=== PATIENT | female | born 1940 | race Caucasian/White ===

== ENCOUNTER 2016-10-08 18:29 | Inpatient (IN) | payer MEDICARE, BC ==
[2016-10-08] MEDS ORDERED: NITROGLYCERIN SL TABS 0.4 MG TAB SUBLINGUAL STA (18:54)
[2016-10-08] MEDS ORDERED: NITROGLYCERIN OINT 1 INCH/GM PACKET TOPICAL STA (18:54)
[2016-10-08] MEDS ORDERED: ASPIRIN 81 MG CHEW PO STA (18:54)
--- NOTE | 2016-10-08 19:07 | ED ---
General Adult HPI - General Chief complaint: Chest Pain Stated complaint: chest pain Time Seen by Provider: 10/08/16 18:35 Source: patient, RN notes reviewed Mode of arrival: wheelchair Limitations: no limitations - History of Present Illness Initial comments: This is a 76-year-old female presents emergency Department complaining of chest pain intermittently over the last couple of weeks. Patient states it radiates to her back and up into her neck. She also states she short of breath and occasional sweating. Patient denies any nausea or vomiting. Patient states these episodes last between 5 and 10 minutes is a significant pain such that she feels like she has to grab her chest. Patient denies any fever chills or cough. Patient denies any palpitations. Patient denies any headache patient denies numbness weakness. Patient patient states and some of these episodes occur she becomes lightheaded and thinks she might pass out but has yet to pass out at this time. Patient denies any injury or trauma. Patient currently has no chest pain. - Related Data Home Medications Medication Instructions Recorded Confirmed Amantadine HCl [Symmetrel] 100 mg PO DAILY 10/21/14 02/23/15 Aspirin 81 mg PO DAILY 10/21/14 02/23/15 Carbidopa-Levodopa 25-100 mg 1 each PO QID 10/21/14 02/23/15 [Sinemet 25-100 mg] Icy Hot Cream 1 applic TOPICAL DAILY PRN 10/21/14 02/23/15 Losartan [Cozaar] 50 mg PO BID 10/21/14 02/23/15 Metoprolol Succinate [Toprol XL] 25 mg PO HS 10/21/14 02/23/15 Nitroglycerin Sl Tabs [Nitrostat] 0.4 mg PO Q5M PRN 10/21/14 02/23/15 Theratears 1 - 2 drop BOTH EYES DAILY PRN 10/21/14 02/23/15 clonazePAM [KlonoPIN] 1 mg PO TID 10/21/14 02/23/15 Previous Rx's Medication Instructions Recorded HYDROcodone/APAP 5-325MG [[place] 5] 1 each PO Q6HR PRN #30 tab 02/23/15 Allergies Allergy/AdvReac Type Severity Reaction Status Date / Time acetaminophen Allergy Unknown Verified 10/08/16 18:31 adhesive Allergy Unknown Verified 10/08/16 18:31 clarithromycin [From Biaxin] Allergy Unknown Verified 10/08/16 18:31 codeine Allergy Unknown Verified 10/08/16 18:31 kiwi Allergy Unknown Verified 10/08/16 18:31 latex Allergy Unknown Verified 10/08/16 18:31 levofloxacin [From Levaquin] Allergy Rash/Hives Verified 10/08/16 18:31 morphine Allergy Unknown Verified 10/08/16 18:31 nifedipine [From Procardia] Allergy Unknown Verified 10/08/16 18:31 Review of Systems ROS Statement: Those systems with pertinent positive or pertinent negative responses have been documented in the HPI. ROS Other: All systems not noted in ROS Statement are negative. Past Medical History Past Medical History: Coronary Artery Disease (CAD), Hypertension Additional Past Medical History / Comment(s): parkinsons neuropathy chronic back and neck pain History of Any Multi-Drug Resistant Organisms: None Reported Past Surgical History: Section, Cholecystectomy, Hysterectomy, Orthopedic Surgery Past Anesthesia/Blood Transfusion Reactions: No Reported Reaction Past Psychological History: No Psychological Hx Reported Smoking Status: Former smoker Past Alcohol Use History: None Reported Past Drug Use History: None Reported - Past Family History Father Family Medical History: Cancer General Exam - General Exam Comments Initial Comments: GENERAL: Patient is well-developed and well-nourished. Patient is nontoxic and well- hydrated and is in mild distress. ENT: Neck is soft and supple. No significant lymphadenopathy is noted. Oropharynx is clear. Moist mucous membranes. Neck has full range of motion without eliciting any pain. EYES: The sclera were anicteric and conjunctiva were pink and moist. Extraocular movements were intact and pupils were equal round and reactive to light. Eyelids were unremarkable. PULMONARY: Unlabored respirations. Good breath sounds bilaterally. No audible rales rhonchi or wheezing was noted. CARDIOVASCULAR: There is a regular rate and rhythm without any murmurs gallops or rubs. ABDOMEN: Soft and nontender with normal bowel sounds. No palpable organomegaly was noted. There is no palpable pulsatile mass. SKIN: Skin is clear with no lesions or rashes and otherwise unremarkable. NEUROLOGIC: Patient is alert and oriented x3. Cranial nerves II through XII are grossly intact. Motor and sensory are also intact. Normal speech, volume and content. Symmetrical smile. MUSCULOSKELETAL: Normal extremities with adequate strength and full range of motion. No lower extremity swelling or edema. No calf tenderness. LYMPHATICS: No significant lymphadenopathy is noted PSYCHIATRIC: Normal psychiatric evaluation. Normal interpersonal interactions appears functionally intact in deals appropriately with others. No signs of depression. Limitations: no limitations Course Vital Signs 10/08/16 10/08/16 10/08/16 18:31 18:52 19:19 Temperature 98.0 F Pulse Rate 76 78 Respiratory 18 20 Rate Blood Pressure 216/88 214/79 196/81 O2 Sat by Pulse 98 100 Oximetry Medical Decision Making - Medical Decision Making EKG shows normal sinus rhythm at 72 bpm IL interval 156 QRS is 84 QT interval 392 QTC is 429. Patient's EKG shows no ST segment elevation or depression or T- wave abdomen is noted to. Patient started to have some more chest pain while she was in the emergency department I repeated EKG at that time. It did show some inferior lateral ST segment depression at this time which was certainly concerning. However the troponin was negative and since her chest pain resolved I put the patient on heparin and admitted the patient. I spoke with Dr. Pugh I admitted the patient to consult cardiology and I gave the patient Nitropaste on the floor as well as aspirin daily. Patient's chest x-ray was normal as well - Lab Data Result diagrams: 10/08/16 19:14 10/08/16 19:14 Lab Results 10/08/16 10/08/16 10/08/16 Range/Units 19:14 19:14 19:14 WBC 5.9 (3.8-10.6) k/uL RBC 4.17 (3.80-5.40) m/uL Hgb 11.8 (11.4-16.0) gm/dL Hct 36.3 (34.0-46.0) % MCV 87.0 (80.0-100.0) fL MCH 28.3 (25.0-35.0) pg MCHC 32.5 (31.0-37.0) g/dL RDW 13.4 (11.5-15.5) % Plt Count 235 (150-450) k/uL Neutrophils % 46 % Lymphocytes % 40 % Monocytes % 7 % Eosinophils % 5 % Basophils % 1 % Neutrophils # 2.7 (1.3-7.7) k/uL Lymphocytes # 2.3 (1.0-4.8) k/uL Monocytes # 0.4 (0-1.0) k/uL Eosinophils # 0.3 (0-0.7) k/uL Basophils # 0.0 (0-0.2) k/uL PT (9.0-12.0) sec INR (<1.1) APTT (22.0-30.0) sec Sodium 142 (137-145) mmol/L Potassium 4.2 (3.5-5.1) mmol/L Chloride 103 (98-107) mmol/L Carbon Dioxide 28 (22-30) mmol/L Anion Gap 11 mmol/L BUN 38 H (7-17) mg/dL Creatinine 0.82 (0.52-1.04) mg/dL Est GFR (MDRD) Af Amer >60 (>60 ml/min/1.73 sqM) Est GFR (MDRD) Non-Af >60 (>60 ml/min/1.73 sqM) Glucose 104 H (74-99) mg/dL Calcium 9.5 (8.4-10.2) mg/dL Magnesium 2.1 (1.6-2.3) mg/dL Total Bilirubin 0.6 (0.2-1.3) mg/dL AST 20 (14-36) U/L ALT 18 (9-52) U/L Alkaline Phosphatase 73 (38-126) U/L Total Creatine Kinase 35 (30-135) U/L CK-MB (CK-2) 0.5 (0.0-2.4) ng/mL CK-MB (CK-2) Rel Index 1.4 Troponin I <0.012 (0.000-0.034) ng/mL Total Protein 7.5 (6.3-8.2) g/dL Albumin 4.0 (3.5-5.0) g/dL 10/08/16 Range/Units 19:14 WBC (3.8-10.6) k/uL RBC (3.80-5.40) m/uL Hgb (11.4-16.0) gm/dL Hct (34.0-46.0) % MCV (80.0-100.0) fL MCH (25.0-35.0) pg MCHC (31.0-37.0) g/dL RDW (11.5-15.5) % Plt Count (150-450) k/uL Neutrophils % % Lymphocytes % % Monocytes % % Eosinophils % % Basophils % % Neutrophils # (1.3-7.7) k/uL Lymphocytes # (1.0-4.8) k/uL Monocytes # (0-1.0) k/uL Eosinophils # (0-0.7) k/uL Basophils # (0-0.2) k/uL PT 10.4 (9.0-12.0) sec INR 1.0 (<1.1) APTT 24.5 (22.0-30.0) sec Sodium (137-145) mmol/L Potassium (3.5-5.1) mmol/L Chloride (98-107) mmol/L Carbon Dioxide (22-30) mmol/L Anion Gap mmol/L BUN (7-17) mg/dL Creatinine (0.52-1.04) mg/dL Est GFR (MDRD) Af Amer (>60 ml/min/1.73 sqM) Est GFR (MDRD) Non-Af (>60 ml/min/1.73 sqM) Glucose (74-99) mg/dL Calcium (8.4-10.2) mg/dL Magnesium (1.6-2.3) mg/dL Total Bilirubin (0.2-1.3) mg/dL AST (14-36) U/L ALT (9-52) U/L Alkaline Phosphatase (38-126) U/L Total Creatine Kinase (30-135) U/L CK-MB (CK-2) (0.0-2.4) ng/mL CK-MB (CK-2) Rel Index Troponin I (0.000-0.034) ng/mL Total Protein (6.3-8.2) g/dL Albumin (3.5-5.0) g/dL Critical Care Time Critical Care Time: Yes Total Critical Care Time: 35 Disposition Clinical Impression: Unstable angina pectoris Disposition: ADMITTED IP TO THIS [facility] Time of Disposition: 20:20
[2016-10-08 19:22] LABS: Basophils % (A) 1 %; CH 28.5; CHCM 32.9; Eosinophils # (A) 0.3 k/uL (0-0.7); Eosinophils % (A) 5 %; HCT 36.3 % (34.0-46.0); HDW 2.64; HGB 11.8 gm/dL (11.4-16.0); Luc # (Auto) 0.13; Luc % (Auto) 2; Lymphocytes # (A) 2.3 k/uL (1.0-4.8); Lymphocytes % (A) 40 %; MCH 28.3 pg (25.0-35.0); MCHC 32.5 g/dL (31.0-37.0); Mean Platelet Volume 6.4; Monocytes # (A) 0.4 k/uL (0-1.0); Monocytes % (A) 7 %; Neutrophils # (A) 2.7 k/uL (1.3-7.7); Neutrophils % (A) 46 %; RBC 4.17 m/uL (3.80-5.40); RDW 13.4 % (11.5-15.5); WBC 5.9 k/uL (3.8-10.6); WBC (Perox) 6.28
[2016-10-08] MEDS ORDERED: hydrALAZINE HCL 20 MG/ML 1 ML VIAL IVP STA (19:22)
[2016-10-08 19:34] LABS: ALT 18 U/L (9-52); AST 20 U/L (14-36); Alkaline Phosphatase 73 U/L (38-126); Anion Gap 11 mmol/L; Blood Urea Nitrogen 38 mg/dL (7-17); Calcium 9.5 mg/dL (8.4-10.2); Carbon Dioxide 28 mmol/L (22-30); Chloride 103 mmol/L (98-107); Glucose 104 mg/dL (74-99); Magnesium 2.1 mg/dL (1.6-2.3); Non-African American GFR(MDRD) >60 (>60 ml/min/1.73 sqM); Potassium 4.2 mmol/L (3.5-5.1); Sodium 142 mmol/L (137-145); Total Bilirubin 0.6 mg/dL (0.2-1.3); Total Protein 7.5 g/dL (6.3-8.2)
[2016-10-08 19:44] LABS: Creatine Kinase 35 U/L (30-135); Partial Thromboplastin Time 24.5 sec (22.0-30.0); Prothrombin Time 10.4 sec (9.0-12.0)
[2016-10-08 19:56] LABS: Creatine Kinase MB 0.5 ng/mL (0.0-2.4); Troponin I <0.012 ng/mL (0.000-0.034)
--- NOTE | 2016-10-08 20:04 | XR ---
EXAMINATION TYPE: XR chest 2V DATE OF EXAM: 10/08/2016 7:57 PM COMPARISON: 02/23/15 HISTORY: Shortness of breath TECHNIQUE: Frontal and lateral views of the chest are obtained. FINDINGS: Scattered senescent parenchymal changes noted. Hyperinflation compatible with COPD. No evidence for infiltrate. No evidence for atelectasis. Heart size is stable. Mediastinal structures are stable and grossly unremarkable. No evidence for hilar prominence. Degenerative changes dorsal spine. IMPRESSION: 1. No evidence for acute pulmonary disease.
[2016-10-08] MEDS ORDERED: NITROGLYCERIN SL TABS 0.4 MG TAB SUBLINGUAL PRN (20:20)
[2016-10-08] MEDS ORDERED: HEPARIN SODIUM,PORCINE 5,000 UNIT/ML 1 ML VIAL IV ONE ×2 (20:20→21:45)
[2016-10-08] MEDS ORDERED: RX INFO: IV CONTRAST WAS GIVEN 1 EACH MISC MISCELLANE PRN (20:24)
[2016-10-08] MEDS ORDERED: LABETALOL SYRINGE 5 MG/ML IVP STA (20:26)
[2016-10-08] MEDS ORDERED: METOPROLOL TARTRATE 5 MG/5 ML VIAL IVP SCH (20:30)
[2016-10-08] MEDS ORDERED: HEPARIN SODIUM,PORCINE/D5W PMX 25,000 UNIT in DEXTROSE/WATER 1 500ML.BAG IV SCH (20:30)
[2016-10-08] MEDS ORDERED: diphenhydrAMINE 50 MG/ML 1 ML VIAL IVP STA (20:42)
[2016-10-08] MEDS ORDERED: FAMOTIDINE 20 MG/2 ML VIAL IV STA (20:42)
[2016-10-08] MEDS ORDERED: methylPREDNISolone SOD SUCCI 125 MG/2 ML VIAL IV STA (20:42)
--- NOTE | 2016-10-08 21:33 | CT ---
EXAMINATION TYPE: CT angio thoracic/abd aorta DATE OF EXAM: 10/08/2016 9:19 PM COMPARISON: NONE HISTORY: Chest and neck pain and tightness. CT DLP: 1060.00 mGycm CONTRAST: CTA thoracic and abdominal aorta with 3-D reconstruction is performed and with IV Contrast, patient i njected with 100 mL of Omnipaque 350. Contrast CTA of the thoracic and abdominal aorta was performed from the lung apex through the base of the pelvis. 3-D reconstruction imaging obtained at a separate workstation. CT Chest: THORACIC AORTA: There is no evidence for aneurysm. No dissection or mediastinal hematoma. Mild ath eromatous changes are seen. LUNGS: The lungs are clear and free of infiltrate or atelectasis. No pulmonary nodule or mass is det ected. No pleural effusion or CT evidence of interstitial lung disease. MEDIASTINUM: The heart is not enlarged. No evidence for mediastinal mass or adenopathy. HILAR STRUCTURES: No evidence for mass. No hilar adenopathy is appreciated. OTHER: No significant abnormality. CONTRAST CT ABDOMEN AND PELVIS ABDOMENAL AORTA: No evidence for abdominal aortic aneurysm. No dissection. Iliac vessels are symmet damian and patent. Atheromatous changes are seen of the abdominal aorta and iliac vessels. LIVER/GB- No significant abnormality is seen. The gallbladder is surgically absent. PANCREAS- No significant abnormality is seen. SPLEEN- No significant abnormality is seen. ADRENALS- No significant abnormality is seen. KIDNEYS/BLADDER-renal cystic changes are seen. BOWEL- No Significant abnormality GENITAL ORGANS: No gross abnormality seen. LYMPH NODES- No greater than 1cm abdominal or pelvic lymph nodes areappreciated. OSSEOUS STRUCTURES- No significant abnormality is seen. OTHER- No significant abnormality is seen. IMPRESSION- 1. No evidence for thoracic or abdominal aortic aneurysm or dissection.
[2016-10-08] MEDS ORDERED: HYDROmorphone 1 MG/ML 1 ML SYRINGE IVP STA (21:45)
[2016-10-08] MEDS: HEPARIN SODIUM,PORCINE/D5W PMX 25,000 UNIT in DEXTROSE/WATER 1 500ML.BAG IV SCH (22:34)
[2016-10-09 00:07] VITALS: BMI 26.2
[2016-10-09 01:10] LABS: Creatine Kinase MB 1.3 ng/mL (0.0-2.4)
[2016-10-09 01:14] LABS: Troponin I 0.083 ng/mL (0.000-0.034)
[2016-10-09 04:55] LABS: Cholesterol 229 mg/dL (<200); HDL Cholesterol 55 mg/dL (40-60); Triglycerides 41 mg/dL (<150)
[2016-10-09] MEDS: NITROGLYCERIN OINT 1 INCH/GM PACKET TOPICAL SCH ×3 (06:47→16:24)
[2016-10-09 08:32] LABS: Creatine Kinase MB 4.6 ng/mL (0.0-2.4); Troponin I 0.697 ng/mL (0.000-0.034)
--- NOTE | 2016-10-09 08:52 | P.CRDCN ---
History of Present Illness Consult date: 10/09/16 Chief complaint: Chest pain History of present illness: This is a pleasant 76-year-old female patient with a past medical history significant for hypertension and dyslipidemia presented to the emergency room complaining of chest discomfort. She has been experiencing intermittent episodes of chest discomfort over the last 2 weeks. She describes the discomfort as a pressure in the chest with radiation to the neck and the jaw. It was associated with shortness of breath and sweating. The patient was ruled in for acute coronary syndrome. The EKG showed changes in the inferolateral leads and the cardiac enzymes came in to be abnormal. I recommended proceeding with a heart catheterization to rule out any severe underlying CAD. Past Medical History Past Medical History: Coronary Artery Disease (CAD), CVA/TIA, Hypertension Additional Past Medical History / Comment(s): parkinsons neuropathy chronic back and neck pain History of Any Multi-Drug Resistant Organisms: None Reported Past Surgical History: Section, Cholecystectomy, Hysterectomy, Orthopedic Surgery Additional Past Surgical History / Comment(s): Lt knee and foot. Lt breast lumpectomy. Bilateral cataract removed. Past Anesthesia/Blood Transfusion Reactions: No Reported Reaction Past Psychological History: No Psychological Hx Reported Smoking Status: Former smoker Past Alcohol Use History: None Reported Past Drug Use History: None Reported - Past Family History Father Family Medical History: Cancer Medications and Allergies Home Medications Medication Instructions Recorded Confirmed Type Aspirin 81 mg PO DAILY 10/21/14 10/08/16 History Nitroglycerin Sl Tabs [Nitrostat] 0.4 mg SUBLINGUAL Q5M PRN 10/21/14 10/08/16 History clonazePAM [KlonoPIN] 1 mg PO TID 10/21/14 10/08/16 History ALPRAZolam [Xanax] 0.25 mg PO DAILY PRN 10/08/16 10/08/16 History Carbidopa/Levodopa [Rytary ER 1 cap PO QID 10/08/16 10/08/16 History 61.25 mg-245 mg Cap] Losartan [Cozaar] 25 mg PO BID 10/08/16 10/08/16 History Allergies Allergy/AdvReac Type Severity Reaction Status Date / Time acetaminophen Allergy Unknown Verified 10/08/16 20:49 adhesive Allergy Unknown Verified 10/08/16 20:49 clarithromycin [From Biaxin] Allergy Unknown Verified 10/08/16 20:49 codeine Allergy Unknown Verified 10/08/16 20:49 kiwi Allergy Unknown Verified 10/08/16 20:49 latex Allergy Unknown Verified 10/08/16 20:49 levofloxacin [From Levaquin] Allergy Rash/Hives Verified 10/08/16 20:49 morphine Allergy Unknown Verified 10/08/16 20:49 nifedipine [From Procardia] Allergy Unknown Verified 10/08/16 20:49 amantadine AdvReac SHAKINESS Verified 10/08/16 20:49 Physical Exam Vitals: Vital Signs Temp Pulse Pulse Resp BP BP Pulse Ox 10/09/16 08:00 97.5 F L 71 18 210/66 99 10/09/16 04:00 97.6 F 65 16 149/65 98 10/09/16 00:30 176/55 10/09/16 00:00 97.6 F 65 16 181/74 98 10/08/16 22:12 81 16 144/66 98 10/08/16 21:18 82 16 150/78 Intake and Output 10/08/16 10/09/16 10/09/16 22:59 06:59 14:59 Other: Voiding Method Bedside Commode # Voids 1 Weight 64.864 kg - Constitutional General appearance: no acute distress - Respiratory Respiratory: bilateral: CTA - Cardiovascular Rhythm: regular Heart sounds: normal: S1, S2 Abnormal Heart Sounds: systolic murmur Results 10/08/16 19:14 10/08/16 19:14 Cardiac Enzymes 10/09/16 10/09/16 Range/Units 00:23 07:17 CK-MB (CK-2) 1.3 4.6 H* (0.0-2.4) ng/mL Troponin I 0.083 H* 0.697 H* (0.000-0.034) ng/mL Coagulation 10/09/16 Range/Units 04:01 APTT 65.5 H (22.0-30.0) sec Lipids 10/09/16 Range/Units 04:01 Triglycerides 41 (<150) mg/dL Cholesterol 229 H (<200) mg/dL HDL Cholesterol 55 (40-60) mg/dL Current Medications Generic Name Dose Route Start Last Admin Trade Name Freq PRN Reason Stop Dose Admin Aspirin 325 mg 10/09/16 09:00 Aspirin PO DAILY SARAI Heparin Sodium/Dextrose 25,000 500 mls @ 15.56 mls/hr 10/08/16 21:45 22:34 unit/ IV Solution IV 11.94 units/kg/hr .Q24H SARAI 15.5 mls/hr Protocol Administration 12 UNITS/KG/HR Miscellaneous Information 1 each 10/08/16 20:24 10/08/16 21:13 Rx Info: Iv Contrast Was Given MISCELLANE 10/10/16 20:25 1 each DAILY PRN Administration Per Protocol Nitroglycerin 1 inch 10/09/16 00:00 10/09/16 06:47 Nitro-Bid Oint TOPICAL Not Given Q6HR [facility] Nitroglycerin 0.4 mg 10/08/16 20:20 Nitrostat SUBLINGUAL Q5M PRN Chest Pain Intake and Output 10/08/16 10/09/16 10/09/16 22:59 06:59 14:59 Other: Voiding Method Bedside Commode # Voids 1 Weight 64.864 kg Assessment and Plan Plan: Assessment #1 acute non-ST elevation myocardial infarction #2 systemic hypertension Plan #1 proceeding with heart catheterization #2 follow-up with the patient
[2016-10-09] MEDS ORDERED: ASPIRIN 325 MG TAB PO SCH (09:00)
[2016-10-09] MEDS ORDERED: ALPRAZolam 0.25 MG TAB PO PRN (09:26)
[2016-10-09] MEDS ORDERED: LEVODOPA PO SCH (09:30)
[2016-10-09] MEDS ORDERED: CARBIDOPA PO SCH (09:30)
[2016-10-09] MEDS ORDERED: ATORVASTATIN 80 MG TAB PO STA (09:39)
[2016-10-09] MEDS ORDERED: SODIUM CHLORIDE 0.9% 1,000 ML in EMPTY BAG 1 BAG IV ONE (09:39)
[2016-10-09] MEDS ORDERED: LIDOCAINE 2% INJ 20 MG/ML (20 ML MDV) ONE (10:42)
[2016-10-09] MEDS ORDERED: MIDAZOLAM 2 MG/2 ML VIAL ONE (10:45)
[2016-10-09] MEDS ORDERED: diphenhydrAMINE 50 MG/ML 1 ML VIAL ONE (10:45)
[2016-10-09] MEDS ORDERED: LIDOCAINE 2% INJ 20 MG/ML SQ ONE (10:58)
[2016-10-09] MEDS ORDERED: diphenhydrAMINE 50 MG/ML 1 ML VIAL IVP ONE (10:58)
[2016-10-09] MEDS: MIDAZOLAM 2 MG/2 ML VIAL IV ONE ×2 (10:58→11:33)
[2016-10-09] MEDS ORDERED: IV FLUID CONTINUATION 1,000 ML IV ONE (10:59)
[2016-10-09] MEDS ORDERED: hydrALAZINE HCL 20 MG/ML 1 ML VIAL ONE (11:02)
[2016-10-09] MEDS ORDERED: METOPROLOL TARTRATE 5 MG/5 ML VIAL IVP ONE ×2 (11:02→11:05)
[2016-10-09] MEDS: hydrALAZINE HCL 20 MG/ML 1 ML VIAL IV ONE ×2 (11:05→11:35)
[2016-10-09] MEDS: NITROGLYCERIN 1000MCG/10ML SYRINGE INTRACORON ONE ×3 (11:12→11:56)
[2016-10-09] MEDS ORDERED: HYDROmorphone 2 MG/ML 1 ML SYRINGE ONE (11:23)
[2016-10-09] MEDS ORDERED: BIVALIRUDIN 250 MG in SODIUM CHLORIDE 0.9% 50 ML IV ONE (11:25)
[2016-10-09] MEDS ORDERED: BIVALIRUDIN BOLUS 250 MG/50 ML IV ONE (11:25)
[2016-10-09] MEDS ORDERED: HYDROmorphone 2 MG/ML 1 ML SYRINGE IV ONE (11:25)
[2016-10-09] MEDS ORDERED: CLOPIDOGREL 75 MG TAB ONE (11:47)
[2016-10-09] MEDS ORDERED: CLOPIDOGREL 75 MG TAB PO ONE (11:54)
[2016-10-09] MEDS ORDERED: IOHEXOL 350 MG/ML 100 ML BOTTLE INTRATHECA ONE (11:58)
[2016-10-09] MEDS ORDERED: MAG HYDROX/AL HYDROX/SIMETH 30 ML CUP PO PRN (12:02)
[2016-10-09] MEDS ORDERED: RX INFO: IV CONTRAST WAS GIVEN 1 EACH MISC MISCELLANE PRN (12:02)
[2016-10-09] MEDS ORDERED: NITROGLYCERIN SL TABS 0.4 MG TAB SUBLINGUAL PRN (12:02)
[2016-10-09] MEDS ORDERED: SODIUM CHLORIDE 0.9% 1,000 ML IV SCH (12:15)
[2016-10-09] MEDS: clonazePAM 1 MG TAB PO SCH ×3 (16:22→21:10)
[2016-10-09] MEDS: LOSARTAN 25 MG TAB PO SCH ×2 (16:22→21:11)
[2016-10-09] MEDS: RYTARY ER PO SCH ×4 (16:23→21:11)
--- NOTE | 2016-10-09 17:27 | P.HPIM ---
History of Present Illness H&P Date: 10/09/16 Chief Complaint: Chest pain This is a 76-year-old female. Her primary care physician is Dr. Quinn. She has a past medical history for coronary artery disease, CVA, hypertension, Parkinson's, chronic back and neck pain with herniated disc in her neck, frozen left shoulder, recently diagnosed breast cancer in October 2015 status post left lung back to [place] with secondary resection. Her neurologist is Dr. Austin. She has appointment with Dr. jennings at the end of October regarding breast cancer. Patient gives history of having ongoing problems with neck pain with chest pain and shortness of breath that went into her neck and jaw. She states this started back in June and it would happen about 1 time per week. She thought it was her Parkinson's and she had gone to physical therapy for her neck for 3 treatments but it seemed to make it worse. Gradually the symptoms became more frequent and she has been in the process of changing [employer] plans so she did not want to go to Dr. Quinn until this was all resolved and she knew what her new co-pay would be. Had a severe spell yesterday with chest pain shortness of breath radiation into her neck and jaw with diaphoresis and her made her come into the hospital for evaluation. Patient presented to [facility] emergency center. Patient was ruled in for acute coronary syndrome and was seen by cardiology and taken for heart catheterization with 90% stenosis of the RCA status post PTCA and stent.. Troponin 0.012, 0.083 and 0.697. Triglycerides 41, cholesterol 229, LDL 166 HDL 55. Review of Systems All systems: negative Constitutional: Denies chills, Denies fever Eyes: denies blurred vision, denies pain Ears, nose, mouth and throat: Denies headache, Denies sore throat Cardiovascular: Reports chest pain, Reports decreased exercise tolerance, Reports dyspnea on exertion, Reports lightheadedness, Reports shortness of breath, Denies leg edema, Denies syncope Respiratory: Denies cough Gastrointestinal: Denies abdominal pain, Denies diarrhea, Denies nausea, Denies vomiting Genitourinary: Denies dysuria, Denies hematuria Musculoskeletal: Denies myalgias Integumentary: Denies pruritus, Denies rash Neurological: Denies numbness, Denies weakness Psychiatric: Denies anxiety, Denies depression Endocrine: Denies fatigue, Denies weight change Past Medical History Past Medical History: Coronary Artery Disease (CAD), CVA/TIA, Hypertension Additional Past Medical History / Comment(s): Parkinson's disease, 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 No radiation or chemotherapy at this point. History of Any Multi-Drug Resistant Organisms: None Reported Past Surgical History: Appendectomy, Section (3), Cholecystectomy, Hysterectomy, Orthopedic Surgery, Tonsillectomy Additional Past Surgical History / Comment(s): Lt knee arthroscopically, left foot neuroma removal, Lt breast lumpectomy. Bilateral cataract removed. Past Anesthesia/Blood Transfusion Reactions: No Reported Reaction Past Psychological History: No Psychological Hx Reported Smoking Status: Former smoker Past Alcohol Use History: None Reported Additional Past Alcohol Use History / Comment(s): Patient smoked only replete as a teenager. No medical marijuana, marijuana, street drug or alcohol use. She currently lives at home with her who is also disabled. Son drives them to doctor's appointments. She does have a wheelchair and hospital bed in her home. Her [id number] comes over daily and does housekeeping and shopping for them. Past Drug Use History: None Reported - Past Family History Father Family Medical History: Cancer Additional Family Medical History / Comment(s): Father at age 56 from kidney cancer. Mother Additional Family Medical History / Comment(s): Mother at age 85 with history of coronary artery disease status post CABG and hypertension. Brother(s) Additional Family Medical History / Comment(s): Patient has a brother who from prostate cancer. Sister(s) Additional Family Medical History / Comment(s): Patient has lost 2 sisters one to pancreatic cancer and one to lung cancer. Son(s) Additional Family Medical History / Comment(s): She has had one son from brain tumor. Medications and Allergies Home Medications Medication Instructions Recorded Confirmed Type Aspirin 81 mg PO DAILY 10/21/14 10/08/16 History Nitroglycerin Sl Tabs [Nitrostat] 0.4 mg SUBLINGUAL Q5M PRN 10/21/14 10/08/16 History clonazePAM [KlonoPIN] 1 mg PO TID 10/21/14 10/08/16 History ALPRAZolam [Xanax] 0.25 mg PO DAILY PRN 10/08/16 10/09/16 History Carbidopa/Levodopa [Rytary ER 1 cap PO QID 10/08/16 10/08/16 History 61.25 mg-245 mg Cap] Losartan [Cozaar] 25 mg PO BID 10/08/16 10/08/16 History Allergies Allergy/AdvReac Type Severity Reaction Status Date / Time acetaminophen Allergy Unknown Verified 10/08/16 20:49 adhesive Allergy Unknown Verified 10/08/16 20:49 clarithromycin [From Biaxin] Allergy Unknown Verified 10/08/16 20:49 codeine Allergy Unknown Verified 10/08/16 20:49 kiwi Allergy Unknown Verified 10/08/16 20:49 latex Allergy Unknown Verified 10/08/16 20:49 levofloxacin [From Levaquin] Allergy Rash/Hives Verified 10/08/16 20:49 morphine Allergy Unknown Verified 10/08/16 20:49 nifedipine [From Procardia] Allergy Unknown Verified 10/08/16 20:49 amantadine AdvReac SHAKINESS Verified 10/08/16 20:49 Physical Exam Vitals: Vital Signs Temp Pulse Pulse Resp BP BP Pulse Ox 10/09/16 12:50 98.0 F 94 18 148/63 99 10/09/16 12:35 88 18 142/65 99 10/09/16 12:20 97.8 F 82 18 152/67 99 10/09/16 08:00 97.5 F L 71 18 210/66 99 10/09/16 04:00 97.6 F 65 16 149/65 98 10/09/16 00:30 176/55 10/09/16 00:00 97.6 F 65 16 181/74 98 10/08/16 22:12 81 16 144/66 98 10/08/16 21:18 82 16 150/78 Intake and Output 10/08/16 10/09/16 10/09/16 22:59 06:59 14:59 Intake Total 100 Balance 100 Intake: IV 100 Sodium Chloride 0.9% 1, 100 000 ml @ 100 mls/hr IV . Q10H SARAI Rx#:[id number] Other: Voiding Method Bedside Commode Bedside Commode # Voids 1 Weight 64.864 kg Gen: This is a 76-year-old female. She is resting in bed and appears to be in no acute distress. Generalized tremor noted most pronounced in the head and neck area HEENT: Head is atraumatic, normocephalic. Pupils equal, round. Sclerae is anicteric. NECK: Supple. No JVD. No lymphadenopathy. No thyromegaly. LUNGS: Clear to auscultation. No wheezes or rhonchi. No intercostal retractions. HEART: Regular rate and rhythm. Systolic murmur. ABDOMEN: Soft. Bowel sounds are present. No masses. No tenderness. EXTREMITIES: No pedal edema. No calf tenderness. Dorsalis pedis +2 bilaterally. NEUROLOGICAL: Patient is awake, alert and oriented x3. Cranial nerves 2 through 12 are grossly intact. Results CBC & Chem 7: 10/08/16 19:14 10/08/16 19:14 Labs: Abnormal Lab Results - Last 24 Hours (Table) 10/09/16 10/09/16 10/09/16 Range/Units 00:23 04:01 04:01 APTT 65.5 H (22.0-30.0) sec CK-MB (CK-2) (0.0-2.4) ng/mL Troponin I 0.083 H* (0.000-0.034) ng/mL Cholesterol 229 H (<200) mg/dL LDL Cholesterol, Calc 166 H (0-99) mg/dL 10/09/16 Range/Units 07:17 APTT (22.0-30.0) sec CK-MB (CK-2) 4.6 H* (0.0-2.4) ng/mL Troponin I 0.697 H* (0.000-0.034) ng/mL Cholesterol (<200) mg/dL LDL Cholesterol, Calc (0-99) mg/dL Thrombosis Risk Factor Assmnt - DVT/VTE Prophylaxis DVT/VTE Prophylaxis: Pharmacologic Prophylaxis ordered - Choose All That Apply Each Risk Factor Represents 2 Points: Age 61-74 years Thrombosis Risk Factor Assessment Total Risk Factor Score: 2 Thrombosis Risk Factor Assessment Level: Low Risk Assessment and Plan Plan: 1. Non-ST elevated myocardial infarction status post heart catheterization, PTCA and stent of the RCA. Continue Plavix, aspirin, Cozaar. Cardiology consult appreciated. 2. Parkinson's disease. Continue Rytary 4 times daily. 3. Hypertension. Continue Cozaar. 4. Chronic neck and back pain, stable. 5. Breast cancer left side status post lumpectomy diagnosed in 2015. Patient has appointment to follow up with Dr. jennings at the end of October. 6. Generalized anxiety disorder continue Xanax as needed. 7. DVT prophylaxis. Patient has been on heparin drip. 8. Gastrointestinal prophylaxis. Patient will be admitted to the hospital for a minimum of 2 night stay. Discharge plan: Return home with homecare Impression and plan of care have been directed as dictated by the signing physician. Anitra Riggs nurse practitioner acting as scribe for signing physician. Time with Patient: Greater than 30
[2016-10-09 20:36] LABS: Glucose,Whole Blood 142 mg/dL (75-99)
[2016-10-09] MEDS ORDERED: ZOLPIDEM 5 MG TAB PO PRN (21:00)
[2016-10-09] MEDS: HEPARIN SODIUM,PORCINE/D5W PMX 25,000 UNIT in DEXTROSE/WATER 1 500ML.BAG IV SCH (21:00)
[2016-10-10] MEDS: NITROGLYCERIN OINT 1 INCH/GM PACKET TOPICAL SCH ×3 (00:11→08:39)
[2016-10-10 06:48] LABS: Non-African American GFR(MDRD) 54 (>60 ml/min/1.73 sqM)
[2016-10-10] MEDS: CLOPIDOGREL 75 MG TAB PO SCH (08:49)
[2016-10-10] MEDS: LOSARTAN 25 MG TAB PO SCH ×2 (08:50→22:03)
[2016-10-10] MEDS: RYTARY ER PO SCH ×4 (08:50→22:02)
[2016-10-10] MEDS: ASPIRIN 325 MG TAB PO SCH (08:50)
[2016-10-10] MEDS: FAMOTIDINE 20 MG TAB PO SCH (08:50)
[2016-10-10] MEDS: clonazePAM 1 MG TAB PO SCH ×3 (08:52→22:02)
[2016-10-10] MEDS: POLYETHYLENE GLYCOL 3350 17 GM POWD.PACK PO SCH (12:48)
--- NOTE | 2016-10-10 13:19 | CC ---
DATE OF SERVICE: 10/09/2016 PERFORMING PHYSICIAN: Manish Rascon MD, senior market intelligence consultant. PROCEDURE PERFORMED: 1. Selective right and left coronary angiogram. 2. Successful stenting of the mid right coronary artery using 2.25 x 28 mm Xience BHAVANI with a good angiographic results. 3. Successful stenting of the proximal right coronary artery using 2.5 x 18 mm Xience BHAVANI with a good angiographic results. INDICATION: This is a pleasant 76-year-old female patient with a known hypertension, and dyslipidemia, who was admitted to the hospital with chest discomfort and ruled in for acute non-ST elevation myocardial infarction. The cardiac enzymes came in to be abnormal. They are consistent with acute MRI. The EKG showed sinus rhythm with ST changes in the inferolateral leads. APPROACH: Right common femoral artery. COMPLICATIONS: None. LEVEL OF SEDATION: Moderate. PROCEDURE DESCRIPTION: After obtaining informed consent, the patient was brought to the cardiac collaborating supervising physician. The right common femoral artery was cannulated using micropuncture technique. The micropuncture wire passed easily, then I placed 6 [place]gu[place] sheath in the right common femoral artery. Subsequently, I did selective right and left coronary angiogram using JR 3.5 and JL 3.5 catheters. After that, I decided to intervene on the RCA. Please see separate paragraph for that. SELECTIVE CORONARY ANGIOGRAM: 1. The right coronary artery is a moderate to large-caliber vessel and it is a dominant vessel. The right coronary artery is subtotally occluded in the proximal to midportion and fills by collateral from the left coronary system. 2. The left main has mild disease in the ostium. It bifurcates into the left circumflex and left anterior descending artery. 3. The left circumflex is a large-caliber vessel and it is a nondominant vessel. The proximal left circumflex appeared to be angiographically normally. The mid left circumflex has mild disease only and gives rises into 2 obtuse marginal branches. The left circumflex continues after that as a small to medium caliber vessel in the AV groove. 4. Left anterior descending artery: The proximal left anterior descending artery appeared to have mild disease only. The mid LAD seems to have mild disease only as well and gives rises into a diagonal branch, which appeared to be angiographically normal. The distal LAD appeared to be very tortuous but angiographically normal. PCI OF THE RCA: Anticoagulation was initiated using Angiomax. Subsequently, I took JR4 guide and RCA was engaged. I was able to cross the subtotally occluded right coronary artery using 0.04 whisper wire with the back-up support of 20 x 2 mm balloon. I crossed the right coronary artery using a whisper wire and after that, I tried to advance a 2.0 mm balloon but the balloon would not cross. After that, I did advance 1.5 mm balloon and I did multiple balloon angioplasty of the lesion in the proximal and mid right coronary artery. Then I did advance a 20 mm balloon and again I did multiple balloon angioplasty of the lesion in the mid RCA and proximal RCA. Subsequently, I did deploy in the mid RCA 2.25 x 28 mm Xience BHAVANI, where the stent was positioned under fluoroscopy guidance and it was deployed under its nominal pressure. For the proximal RCA I did deploy 2.5 x 18 mm another Xience BHAVANI with about 1 mm overlap between the 2 stents. The second stent was deployed under its nominal pressure as well. After that, the area of overlap between the 2 stents was dilated using stent balloon. Final angiogram showed an excellent angiographic result. CONCLUSION: 1. Subtotally occluded right coronary artery fills by collaterals from the left coronary system. 2. Mild disease involving the left coronary system, which seems to be very tortuous. 3. Successful stenting of the proximal and mid right coronary artery using drug eluting stent with a good angiographic result and without complication. POSTPROCEDURE MANAGEMENT: 1. Dual antiplatelet therapy. 2. Risk factor modification. 3. Follow up with the patient.
--- NOTE | 2016-10-10 13:23 | ECHOF ---
Referral Reason:nonqmi MEASUREMENTS -------- HEIGHT: 157.5 cm WEIGHT: 68.5 kg BP: 142/64 RVIDd: 2.3 cm (< 3.3) IVSd: 1.4 cm (0.6 - 1.1) LVIDd: 3.5 cm (3.9 - 5.3) LVPWd: 1.2 cm (0.6 - 1.1) IVSs: 1.7 cm LVIDs: 2.2 cm LVPWs: 1.8 cm LA Diam: 2.4 cm (2.7 - 3.8) LAESV Index (A-L): 45.91 ml/m Ao Diam: 3.1 cm (2.0 - 3.7) AV Cusp: 1.1 cm (1.5 - 2.6) LA Diam: 4.2 cm (2.7 - 3.8) MV EXCURSION: 10.933 mm (> 18.000) MV EF SLOPE: 33 mm/s (70 - 150) EPSS: 0.2 cm MV E Royce: 1.57 m/s MV DecT: 263 ms MV A Royce: 1.59 m/s MV E/A Ratio: 0.98 AV maxP.95 mmHg AV meanP.33 mmHg AR PHT: 493 ms FINDINGS -------- Sinus rhythm. This was a technically good study. There is moderate concentric left ventricular hypertrophy. Overall left ventricular systolic function is normal with, an EF between 60 - 65 %. The right ventricle is normal in size. LA is severely dilated >40 ml/m2 The right atrial size is normal. Aortic valve is trileaflet and is moderately thickened. There is mild aortic regurgitation. There is mild aortic stenosis present. Peak/mean gradient across the Aortic Valve is 20.95mmHg / 12.33mmHg. The mitral valve leaflets are mildly thickened. Moderate mitral annular calcification present. There is trace mitral regurgitation. The peak and mean MV gradients are 10.78mmHg 4.94mmHg as measured by doppler. Trace tricuspid regurgitation present. Trace/mild (physiologic) pulmonic regurgitation. The aortic root size is normal. Normal inferior vena cava with normal inspiratory collapse consistent with estimated right atrial pressure of 5 mmHg. There is no pericardial effusion. CONCLUSIONS -------- 1. Sinus rhythm. 2. There is mild aortic stenosis present. 3. Peak/mean gradient across the Aortic Valve is 20.95mmHg / 12.33mmHg. 4. The mitral valve leaflets are mildly thickened. 5. Moderate mitral annular calcification present. 6. There is trace mitral regurgitation. 7. The peak and mean MV gradients are 10.78mmHg 4.94mmHg as measured by doppler. 8. Trace tricuspid regurgitation present. 9. Trace/mild (physiologic) pulmonic regurgitation. 10. The aortic root size is normal. 11. There is no pericardial effusion. 12. This was a technically good study. 13. There is moderate concentric left ventricular hypertrophy. 14. Overall left ventricular systolic function is normal with, an EF between 60 - 65 %. 15. The right ventricle is normal in size. 16. LA is severely dilated >40 ml/m2 17. The right atrial size is normal. 18. Aortic valve is trileaflet and is moderately thickened. 19. There is mild aortic regurgitation. MORNING NANNY: Angella Ventura RDCS
--- NOTE | 2016-10-10 14:51 | P.PN ---
Subjective This is a 76-year-old female. Her primary care physician is Dr. Quinn. She has a past medical history for coronary artery disease, CVA, hypertension, Parkinson's, chronic back and neck pain with herniated disc in her neck, frozen left shoulder, recently diagnosed breast cancer in October 2015 status post left lung back to me with secondary resection. Her neurologist is Dr. Austin. She has appointment with Dr. jennings at the end of October regarding breast cancer. Patient gives history of having ongoing problems with neck pain with chest pain and shortness of breath that went into her neck and jaw. She states this started back in June and it would happen about 1 time per week. She thought it was her Parkinson's and she had gone to physical therapy for her neck for 3 treatments but it seemed to make it worse. Gradually the symptoms became more frequent and she has been in the process of changing [employer] plans so she did not want to go to Dr. Quinn until this was all resolved and she knew what her new co-pay would be. Had a severe spell yesterday with chest pain shortness of breath radiation into her neck and jaw with diaphoresis and her made her come into the hospital for evaluation. Patient presented to [facility] emergency [facility]. Patient was ruled in for acute coronary syndrome and was seen by cardiology and taken for heart catheterization with 90% stenosis of the RCA status post PTCA and stent. Troponin 0.012, 0.083 and 0.697. Triglycerides 41, cholesterol 229, LDL 166 HDL 55. 10/10: Patient denies chest pain or shortness of breath. She does have chronic neck pain. Echocardiogram reveals mild aortic stenosis, trace mitral regurgitation, trace tricuspid regurgitation, EF 60-65% with moderate concentric left ventricular hypertrophy, LA severely dilated greater than 40, mild aortic regurgitation. Anticipate possible discharge tomorrow. Objective - Vital Signs Vital signs: Vital Signs Temp 98.1 F 10/10/16 04:00 Pulse 76 10/10/16 04:00 Resp 17 10/10/16 04:00 BP 110/53 10/10/16 04:00 Pulse Ox 94 L 10/10/16 04:00 Intake & Output 10/09/16 10/10/16 10/10/16 18:59 06:59 18:59 Intake Total 100 1000 180 Output Total 1200 Balance 100 -200 180 Weight 68.5 kg Intake: IV 100 1000 Sodium Chloride 0.9% 1, 100 1000 000 ml @ 100 mls/hr IV . Q10H [facility] Rx#:[id number] Oral 180 Output: Urine 1200 Other: Voiding Method Bedside Commode Bedside Commode # Voids 1 - Exam Gen: This is a 76-year-old female. She is resting in bed and appears to be in no acute distress. Generalized tremor noted most pronounced in the head and neck area HEENT: Head is atraumatic, normocephalic. Pupils equal, round. Sclerae is anicteric. NECK: Supple. No JVD. No lymphadenopathy. No thyromegaly. LUNGS: Clear to auscultation. No wheezes or rhonchi. No intercostal retractions. HEART: Regular rate and rhythm. Systolic murmur. ABDOMEN: Soft. Bowel sounds are present. No masses. No tenderness. EXTREMITIES: No pedal edema. No calf tenderness. Dorsalis pedis +2 bilaterally. NEUROLOGICAL: Patient is awake, alert and oriented x3. Cranial nerves 2 through 12 are grossly intact. - Labs CBC & Chem 7: 10/08/16 19:14 10/10/16 05:54 Labs: Abnormal Lab Results - Last 24 Hours (Table) 10/09/16 Range/Units 20:35 POC Glucose (mg/dL) 142 H (75-99) mg/dL Assessment and Plan Plan: 1. Non-ST elevated myocardial infarction status post heart catheterization, PTCA and stent of the RCA. Continue Plavix, aspirin, Cozaar, Lipitor. Cardiology consult appreciated. Echocardiogram as above. 2. Parkinson's disease. Continue Rytary 4 times daily. 3. Hypertension. Continue Cozaar. 4. Chronic neck and back pain, stable. 5. Breast cancer left side status post lumpectomy diagnosed in favor 2015. Patient has appointment to follow up with Dr. jennings at the end of October. 6. Generalized anxiety disorder continue Xanax as needed. 7. DVT prophylaxis. Patient has been on heparin drip. 8. Gastrointestinal prophylaxis. Discharge plan: Return home with homecare Impression and plan of care have been directed as dictated by the signing physician. Anitra Riggs nurse practitioner acting as scribe for signing physician. Time with Patient: Greater than 30
--- NOTE | 2016-10-10 14:51 | P.PN ---
Subjective Principal diagnosis: Non-STEMI This is a pleasant 76-year-old female who presented to the hospital with a non-ST elevation myocardial infarction. She has history of hypertension and hyperlipidemia. Patient was taken to the cardiac catheterization lab where she underwent angioplasty with stent placement of the right coronary artery. She was seen and examined this morning, denies any chest pain or difficulty in breathing. EKG shows normal sinus rhythm with no changes from post-PCI. Objective - Vital Signs Vital signs: Vital Signs Temp 97.1 F L 10/10/16 12:00 Pulse 74 10/10/16 12:00 Resp 18 10/10/16 12:00 BP 141/63 10/10/16 12:00 Pulse Ox 97 10/10/16 12:00 Intake & Output 10/09/16 10/10/16 10/10/16 18:59 06:59 18:59 Intake Total 240 Balance 240 Intake: Oral 240 Other: Voiding Method Bedside Commode - Exam PHYSICAL EXAMINATION: HEENT: Head is atraumatic, normocephalic. Pupils equal, round. Neck is supple. There is no elevated jugular venous pressure. HEART EXAMINATION: Heart S1 and S2 systolic murmur. CHEST EXAMINATION: Lungs are clear to auscultation and precussion. No chest wall tenderness is noted on palpation or with deep breathing. ABDOMEN: Soft, nontender. Bowel sounds are heard. No organomegaly noted. Right groin soft, no evidence of any hematoma. EXTREMITIES: 2+ peripheral pulses with no evidence of peripheral edema and no calf tenderness noted. NEUROLOGIC patient is awake, alert and oriented -3. . - Labs CBC & Chem 7: 10/08/16 19:14 10/10/16 05:54 Assessment and Plan Plan: Assessment and plan #1 non-Q-wave VA status post stent placement of the right coronary artery. #2 hypertension #3 hyperlipidemia Plan We will obtain an echocardiogram with Doppler study to assess patient's LV function. Continue current medications and plan for possible discharge home in the morning if stable. DNP note has been reviewed, I agree with a documented findings and plan of care. Patient was seen and examined.
[2016-10-10] MEDS: METOPROLOL TARTRATE 12.5 MG TAB PO SCH ×2 (16:44→22:03)
[2016-10-10] MEDS ORDERED: ATORVASTATIN 80 MG TAB PO SCH (21:00)
[2016-10-11 07:44] LABS: Anion Gap 5 mmol/L; Blood Urea Nitrogen 30 mg/dL (7-17); Calcium 8.8 mg/dL (8.4-10.2); Carbon Dioxide 31 mmol/L (22-30); Chloride 106 mmol/L (98-107); Glucose 86 mg/dL (74-99); Non-African American GFR(MDRD) 59 (>60 ml/min/1.73 sqM); Potassium 4.2 mmol/L (3.5-5.1); Sodium 142 mmol/L (137-145)
--- NOTE | 2016-10-11 09:43 | P.PN ---
Subjective Principal diagnosis: Non-STEMI This is a pleasant 76-year-old female who presented to the hospital with a non-ST elevation myocardial infarction. She has history of hypertension and hyperlipidemia. Patient was taken to the cardiac catheterization lab where she underwent angioplasty with stent placement of the right coronary artery. She was seen and examined this morning, denies any chest pain or difficulty in breathing. EKG shows normal sinus rhythm with no changes from post-PCI. Patient will be discharged home today to follow-up with Dr. Simons in the office in one week. Objective - Vital Signs Vital signs: Vital Signs Temp 98.1 F 10/11/16 04:00 Pulse 58 L 10/11/16 04:00 Resp 17 10/11/16 04:00 BP 147/69 10/11/16 04:00 Pulse Ox 96 10/11/16 04:00 Intake & Output 10/10/16 10/11/16 10/11/16 18:59 06:59 18:59 Intake Total 360 420 120 Output Total 950 Balance 360 -530 120 Weight 68.2 kg Intake: Intake, IV Titration 0 Amount Bivalirudin 250 mg In 0 Sodium Chloride 0.9% 50 ml As IV .STK-MED ONE Rx# :[id number] Heparin Sodium,Porcine/ 0 D5w Pmx 25,000 unit In Dextrose/Water 1 500ml. bag @ 12 UNITS/KG/HR 15. 56 mls/hr IV .Q24H [facility] Rx #:[id number] IV Fluid Continuation 1, 0 000 ml As IV .STK-MED ONE Rx#:[id number] Oral 360 420 120 Output: Urine 950 Other: Voiding Method Bedside Commode Toilet # Voids 1 - Exam PHYSICAL EXAMINATION: HEENT: Head is atraumatic, normocephalic. Pupils equal, round. Neck is supple. There is no elevated jugular venous pressure. HEART EXAMINATION: Heart S1 and S2 systolic murmur. CHEST EXAMINATION: Lungs are clear to auscultation and precussion. No chest wall tenderness is noted on palpation or with deep breathing. ABDOMEN: Soft, nontender. Bowel sounds are heard. No organomegaly noted. Right groin soft, no evidence of any hematoma. EXTREMITIES: 2+ peripheral pulses with no evidence of peripheral edema and no calf tenderness noted. NEUROLOGIC patient is awake, alert and oriented -3. . - Labs CBC & Chem 7: 10/08/16 19:14 10/11/16 06:47 Labs: Abnormal Lab Results - Last 24 Hours (Table) 10/11/16 Range/Units 06:47 Carbon Dioxide 31 H (22-30) mmol/L BUN 30 H (7-17) mg/dL Assessment and Plan Plan: Assessment and plan #1 non-Q-wave MS status post stent placement of the right coronary artery. #2 hypertension #3 hyperlipidemia Plan Echo cardiac gram with Doppler study was performed which revealed a normal left ventricular systolic function with a severely dilated left atrium. will be discharged home today to follow-up with Dr. Simons in the office in one week. She will be discharged home on aspirin 325 mg daily, Lipitor 80 mg daily, Plavix 75 mg daily, Pepcid 20 mg daily, losartan 25 mg one tablet by mouth twice a day, metoprolol tartrate 12-1/2 mg one tablet by mouth twice a day, and sublingual nitroglycerin as needed for chest pain. The patient has been educated regarding her medication as well as follow-up appointments. DNP note has been reviewed, I agree with a documented findings and plan of care. Patient was seen and examined.
[2016-10-11] MEDS: RYTARY ER PO SCH (10:00)
[2016-10-11] MEDS: POLYETHYLENE GLYCOL 3350 17 GM POWD.PACK PO SCH (10:00)
[2016-10-11] MEDS: LOSARTAN 25 MG TAB PO SCH (10:01)
[2016-10-11] MEDS: CLOPIDOGREL 75 MG TAB PO SCH (10:01)
[2016-10-11] MEDS: FAMOTIDINE 20 MG TAB PO SCH (10:01)
[2016-10-11] MEDS: METOPROLOL TARTRATE 12.5 MG TAB PO SCH (10:01)
[2016-10-11] MEDS: ASPIRIN 325 MG TAB PO SCH (10:01)
[2016-10-11] MEDS: clonazePAM 1 MG TAB PO SCH (10:04)
[2016-10-11 11:26] VITALS: TEMP 97.6
[2016-10-11 11:29] VITALS: BP 123/58; PULSE 55; RESP 18
--- NOTE | 2016-10-12 13:18 | DS ---
DATE OF ADMISSION: 10/10/2016 DATE OF DISCHARGE: 10/11/2016 ADMISSION DIAGNOSES: 1. Non-ST elevation myocardial infarction. 2. Parkinson disease. 3. Hypertension. 4. Chronic neck and back pain. 5. History of breast cancer, status post lumpectomy. 6. Generalized anxiety disorder. DISCHARGE DIAGNOSES: 1. Non-ST elevation myocardial infarction. 2. Parkinson disease. 3. Hypertension. 4. Chronic neck and back pain. 5. History of breast cancer, status post lumpectomy. 6. Generalized anxiety disorder. CONSULTATION: Cardiology Services. HOSPITAL COURSE: This is a 76-year-old female with multiple comorbidities who presented to the hospital with chest pain. Patient had [id number] evidence by elevated troponin, evaluated by Cardiology, who recommended emergent cardiac catheterization with stent placement to the RCA. Patient was started on appropriate cardioprotective medication including aspirin, Plavix, Cozaar and Lipitor, stabilized over the next 48 hours and felt to be stable for discharge. Patient counseled regarding medication adherence, close follow up with primary care physician, understands that she needs to take her Plavix on a daily basis and that it has to be very detailed with her medication. Patient advised to follow up with Dr. Quinn in her office after discharge and follow up with her scheduled appointment with Cardiology within 2 weeks from discharge. Educated about her current condition and when that she needs to come back to the hospital. Patient was discharged in stable condition. DISCHARGE PROCESS: 35 minutes.
== END 2016-10-11 12:54 | disposition home or self-care (01) | DRG 247 ==
LOC: EC 18:29 → 3OBS 20:20 → 6SEL 10-09 13:01 → OBSVTOIN 10-10 10:31
PROVIDERS: ADMIT Internal Medicine; ATTEND Internal Medicine
PROC: B2111ZZ Fluoroscopy of Multiple Coronary Arteries using Low Osmolar Contrast (ICD-10-PCS; 2016-10-09)
PROC: 027035Z Dilation of Coronary Artery, One Artery with Two Drug-eluting Intraluminal Devices, Percutaneous Approach (ICD-10-PCS; principal; 2016-10-09 10:35)
PROC: 4A023N7 Measurement of Cardiac Sampling and Pressure, Left Heart, Percutaneous Approach (ICD-10-PCS; 2016-10-09 10:35)
DX: I21.4 Non-ST elevation (NSTEMI) myocardial infarction (principal); G62.9 Polyneuropathy, unspecified; G20 Parkinson's disease; I10 Essential (primary) hypertension; I35.2 Nonrheumatic aortic (valve) stenosis with insufficiency; I25.10 Atherosclerotic heart disease of native coronary artery without angina pectoris; M50.20 Other cervical disc displacement, unspecified cervical region; M75.02 Adhesive capsulitis of left shoulder; M54.9 Dorsalgia, unspecified; E78.5 Hyperlipidemia, unspecified; F41.1 Generalized anxiety disorder; G89.29 Other chronic pain; Z85.3 Personal history of malignant neoplasm of breast; Z80.1 Family history of malignant neoplasm of trachea, bronchus and lung; Z82.49 Family history of ischemic heart disease and other diseases of the circulatory system; Z79.82 Long term (current) use of aspirin; Z80.0 Family history of malignant neoplasm of digestive organs; Z87.891 Personal history of nicotine dependence; Z86.73 Personal history of transient ischemic attack (TIA), and cerebral infarction without residual deficits; Z90.12 Acquired absence of left breast and nipple; Z90.49 Acquired absence of other specified parts of digestive tract; Z90.710 Acquired absence of both cervix and uterus; Z79.899 Other long term (current) drug therapy; Z88.1 Allergy status to other antibiotic agents; Z91.040 Latex allergy status; Z88.5 Allergy status to narcotic agent; Z91.018 Allergy to other foods; Z91.048 Other nonmedicinal substance allergy status; Z80.51 Family history of malignant neoplasm of kidney; Z80.42 Family history of malignant neoplasm of prostate; Z80.8 Family history of malignant neoplasm of other organs or systems; Z98.42 Cataract extraction status, left eye; Z98.41 Cataract extraction status, right eye
CPT/HCPCS: 36415; 71020; 71275; 75635; 80048; 80053; 80061; 82550; 82553; 82565; 83735; 84484; 85025; 85610; 85730; 93005; 93306; 93454; 96365; 96375; 96376; 99291

== ENCOUNTER → 2017-05-29 | Outpatient (CLI) | payer MEDICARE, BC ==
--- NOTE | 2017-05-29 16:16 | CT ---
EXAMINATION TYPE: CT abdomen pelvis wo con DATE OF EXAM: 05/29/2017 COMPARISON: October 08, 2016 HISTORY: Upper abdominal pain with nausea CT DLP: 519 mGycm Examination of the solid and hollow viscera is limited given the lack of contrast. FINDINGS: LUNG BASES: No evidence for nodule. No evidence for infiltrate. LIVER/GB: The gallbladder is surgically absent. No space-occupying hepatic lesion. PANCREAS: No pancreatic mass identified. No inflammatory process seen. SPLEEN: No evidence for splenomegaly. No intrasplenic lesions seen. ADRENALS: No adrenal nodules identified. No evidence for thickening. KIDNEYS: Hypoattenuating lesion upper pole right kidney is unchanged. Stable small partially calcifie d lesion lower pole left kidney measuring 8 mm and is nonspecific. No nephrolithiasis. No hydronephro sis. BOWEL: Appendix has a normal appearance. No evidence of bowel obstruction. No inflammatory process. M oderate fecal stasis is identified. Lymph nodes: No evidence for adenopathy greater than 1 cm. Abdominal aorta: Atheromatous changes seen. No evidence for aneurysm. Genital organs: No significant abnormality. Other: Stable fat-containing low anterior abdominal wall hernia. IMPRESSION: 1. NO ACUTE INTRA-ABDOMINAL PROCESS TO ACCOUNT FOR THE PATIENT'S SYMPTOMS. 2. ATHEROMATOUS CHANGES OF THE ABDOMINAL AORTA WITHOUT ANEURYSM. 3. NONSPECIFIC RENAL LESIONS.
== END | disposition home or self-care (01) ==
LOC: RADCTMAIN 14:43
PROVIDERS: ATTEND Family Medicine
DX: I71.4 Abdominal aortic aneurysm, without rupture (principal); N28.9 Disorder of kidney and ureter, unspecified
CPT/HCPCS: 74176

== ENCOUNTER 2017-06-27 11:30 | Emergency (ER) | payer MEDICARE, BC ==
[2017-06-27] MEDS ORDERED: SODIUM CHLORIDE 0.9% 1,000 ML IV STA ×2 (11:35→12:47)
--- NOTE | 2017-06-27 11:41 | ED ---
Abdominal Pain HPI - General Stated Complaint: Abd Pain/Nausea Time Seen by Provider: 06/27/17 11:30 Source: patient, EMS, RN notes reviewed Mode of arrival: EMS Limitations: no limitations - History of Present Illness Initial Comments: this is a 77-year-old female who is brought in by EMS [facility] with complaints of abdominal pain nausea vomiting. She had the onset around 8:30 this morning of nausea vomiting. She also has been having intermittent chest pains. She states she's had intermittent nausea ever since she had stents placed in September of this year and she was placed on Plavix and Lipitor. She also complains weight loss. He states the pain is more epigastric does radiate upwards. She has point also to the left side of her chest as where the pain was last several days. No nausea at this time no cough or phlegm production no fevers chills or sweats no constipation. She states she has been have some trouble urinating recently also.patient does have a history of a cholecystectomy also left breast cancer with lumpectomy. MD Complaint: abdominal pain, other - Related Data Home Medications Medication Instructions Recorded Confirmed Nitroglycerin Sl Tabs [Nitrostat] 0.4 mg SUBLINGUAL Q5M PRN 10/21/14 06/27/17 ALPRAZolam [Xanax] 0.25 mg PO Q12H PRN 10/08/16 06/27/17 Carbidopa/Levodopa [Rytary ER 1 cap PO QID 10/08/16 06/27/17 61.25 mg-245 mg Cap] Aspirin EC [Ecotrin Low Dose] 81 mg PO DAILY 06/27/17 06/27/17 Carbidopa-Levodopa 25-100 mg 1 tab PO DAILY 06/27/17 06/27/17 [Sinemet 25-100] Cyanocobalamin [Vitamin B-12 1,000 mcg SQ Q30D 06/27/17 06/27/17 Injection] Cyclobenzaprine [Flexeril] 2.5 mg PO TID 06/27/17 06/27/17 Ezetimibe [Zetia] 10 mg PO DAILY 06/27/17 06/27/17 Lubiprostone [Amitiza] 24 mcg PO DAILY 06/27/17 06/27/17 Metoprolol Tartrate [Lopressor] 12.5 mg PO BID 06/27/17 06/27/17 Mirtazapine [Remeron] 7.5 mg PO HS 06/27/17 06/27/17 Omeprazole 40 mg PO DAILY 06/27/17 06/27/17 Pravastatin Sodium [Pravachol] 80 mg PO DAILY 06/27/17 06/27/17 clonazePAM [KlonoPIN] 0.5 mg PO BID PRN 06/27/17 06/27/17 Previous Rx's Medication Instructions Recorded Clopidogrel [Plavix] 75 mg PO DAILY #30 tab 10/11/16 Allergies Allergy/AdvReac Type Severity Reaction Status Date / Time acetaminophen Allergy Unknown Verified 06/27/17 12:50 adhesive Allergy Unknown Verified 06/27/17 12:50 clarithromycin [From Biaxin] Allergy Unknown Verified 06/27/17 12:50 codeine Allergy Unknown Verified 06/27/17 12:50 kiwi Allergy Unknown Verified 06/27/17 12:50 latex Allergy Unknown Verified 06/27/17 12:50 levofloxacin [From Levaquin] Allergy Rash/Hives Verified 06/27/17 12:50 morphine Allergy Unknown Verified 06/27/17 12:50 nifedipine [From Procardia] Allergy Unknown Verified 06/27/17 12:50 amantadine AdvReac SHAKINESS Verified 06/27/17 12:50 Review of Systems ROS Statement: Those systems with pertinent positive or pertinent negative responses have been documented in the HPI. ROS Other: All systems not noted in ROS Statement are negative. 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 No radiation or chemotherapy at this point. History of Any Multi-Drug Resistant Organisms: None Reported Past Surgical History: Appendectomy, Section, Cholecystectomy, Hysterectomy, Orthopedic Surgery, Tonsillectomy Additional Past Surgical History / Comment(s): Lt knee arthroscopically, left foot neuroma removal, Lt breast lumpectomy. Bilateral cataract removed. Past Anesthesia/Blood Transfusion Reactions: No Reported Reaction Past Psychological History: No Psychological Hx Reported Smoking Status: Former smoker Past Alcohol Use History: None Reported Past Drug Use History: None Reported - Past Family History Mother Additional Family Medical History / Comment(s): Mother at age 85 with history of coronary artery disease status post CABG and hypertension. Brother(s) Additional Family Medical History / Comment(s): Patient has a brother who from prostate cancer. Sister(s) Additional Family Medical History / Comment(s): Patient has lost 2 sisters one to pancreatic cancer and one to lung cancer. Son(s) Additional Family Medical History / Comment(s): She has had one son from brain tumor. Father Family Medical History: Cancer Additional Family Medical History / Comment(s): Father at age 56 from kidney cancer. General Exam - General Exam Comments Initial Comments: this is a well-developed well-nourished awake alert oriented x 3 female Limitations: no limitations General appearance: alert, in no apparent distress Head exam: Present: atraumatic, normocephalic, normal inspection Eye exam: Present: normal appearance, PERRL, EOMI. Absent: scleral icterus, conjunctival injection, periorbital swelling ENT exam: Present: mucous membranes dry Neck exam: Present: normal inspection. Absent: tenderness, meningismus, lymphadenopathy Respiratory exam: Present: normal lung sounds bilaterally. Absent: respiratory distress, wheezes, rales, rhonchi, stridor Cardiovascular Exam: Present: regular rate, normal rhythm, normal heart sounds. Absent: systolic murmur, diastolic murmur, rubs, gallop, clicks GI/Abdominal exam: Present: soft, tenderness (mild epigastric tenderness palpation no guarding rebound masses or bruits), normal bowel sounds. Absent: distended, guarding, rebound, rigid Extremities exam: Present: normal inspection, full ROM, normal capillary refill. Absent: tenderness, pedal edema, joint swelling, calf tenderness Back exam: Present: normal inspection Neurological exam: Present: alert, oriented X3, CN II-XII intact Psychiatric exam: Present: normal affect, normal mood Skin exam: Present: warm, dry, intact, normal color. Absent: rash Course Vital Signs 06/27/17 06/27/17 06/27/17 11:32 13:04 14:03 Temperature 96.9 F L Pulse Rate 63 66 72 Respiratory 18 18 16 Rate Blood Pressure 184/91 198/78 196/81 O2 Sat by Pulse 98 98 96 Oximetry 06/27/17 15:20 Temperature 97.1 F L Pulse Rate 59 L Respiratory 16 Rate Blood Pressure 165/95 O2 Sat by Pulse 96 Oximetry Medical Decision Making - Medical Decision Making Patient was feeling improved after IV fluids. Her blood pressure was elevated she did not keep her blood pressure medications and she vomited them up this morning. She was given IV medication with Jacob improvement in her blood pressure she will be discharged - Lab Data Result diagrams: 06/27/17 11:52 06/27/17 11:52 Lab Results 06/27/17 06/27/17 06/27/17 Range/Units 11:52 11:52 11:52 WBC 6.1 (3.8-10.6) k/uL RBC 4.40 (3.80-5.40) m/uL Hgb 12.2 (11.4-16.0) gm/dL Hct 38.8 (34.0-46.0) % MCV 88.1 (80.0-100.0) fL MCH 27.8 (25.0-35.0) pg MCHC 31.5 (31.0-37.0) g/dL RDW 14.4 (11.5-15.5) % Plt Count 230 (150-450) k/uL Neutrophils % 74 % Lymphocytes % 19 % Monocytes % 4 % Eosinophils % 2 % Basophils % 0 % Neutrophils # 4.5 (1.3-7.7) k/uL Lymphocytes # 1.2 (1.0-4.8) k/uL Monocytes # 0.3 (0-1.0) k/uL Eosinophils # 0.1 (0-0.7) k/uL Basophils # 0.0 (0-0.2) k/uL Hypochromasia Slight PT (9.0-12.0) sec INR (<1.2) APTT (22.0-30.0) sec Sodium 143 (137-145) mmol/L Potassium 4.4 (3.5-5.1) mmol/L Chloride 105 (98-107) mmol/L Carbon Dioxide 28 (22-30) mmol/L Anion Gap 10 mmol/L BUN 28 H (7-17) mg/dL Creatinine 0.72 (0.52-1.04) mg/dL Est GFR (MDRD) Af Amer >60 (>60 ml/min/1.73 sqM) Est GFR (MDRD) Non-Af >60 (>60 ml/min/1.73 sqM) Glucose 106 H (74-99) mg/dL Plasma Lactic Acid Rudy (0.7-2.0) mmol/L Calcium 9.3 (8.4-10.2) mg/dL Total Bilirubin 0.8 (0.2-1.3) mg/dL AST 14 (14-36) U/L ALT 16 (9-52) U/L Alkaline Phosphatase 86 (38-126) U/L Total Creatine Kinase 37 (30-135) U/L CK-MB (CK-2) 0.5 (0.0-2.4) ng/mL CK-MB (CK-2) Rel Index 1.4 Troponin I <0.012 (0.000-0.034) ng/mL Total Protein 7.3 (6.3-8.2) g/dL Albumin 4.0 (3.5-5.0) g/dL Amylase 71 (30-110) U/L Lipase 87 (23-300) U/L Urine Color Urine Appearance (Clear) Urine pH (5.0-8.0) Ur Specific [place] (1.001-1.035) Urine Protein (Negative) Urine Glucose (UA) (Negative) Urine Ketones (Negative) Urine Blood (Negative) Urine Nitrite (Negative) Urine Bilirubin (Negative) Urine Urobilinogen (<2.0) mg/dL Ur Leukocyte Esterase (Negative) Urine RBC (0-5) /hpf Urine WBC (0-5) /hpf Ur Squamous Epith Cells (0-4) /hpf Hyaline Casts (0-2) /lpf Urine Mucus (None) /hpf 06/27/17 06/27/17 06/27/17 Range/Units 11:52 11:52 11:55 WBC (3.8-10.6) k/uL RBC (3.80-5.40) m/uL Hgb (11.4-16.0) gm/dL Hct (34.0-46.0) % MCV (80.0-100.0) fL MCH (25.0-35.0) pg MCHC (31.0-37.0) g/dL RDW (11.5-15.5) % Plt Count (150-450) k/uL Neutrophils % % Lymphocytes % % Monocytes % % Eosinophils % % Basophils % % Neutrophils # (1.3-7.7) k/uL Lymphocytes # (1.0-4.8) k/uL Monocytes # (0-1.0) k/uL Eosinophils # (0-0.7) k/uL Basophils # (0-0.2) k/uL Hypochromasia PT 10.7 (9.0-12.0) sec INR 1.1 (<1.2) APTT 21.7 L (22.0-30.0) sec Sodium (137-145) mmol/L Potassium (3.5-5.1) mmol/L Chloride (98-107) mmol/L Carbon Dioxide (22-30) mmol/L Anion Gap mmol/L BUN (7-17) mg/dL Creatinine (0.52-1.04) mg/dL Est GFR (MDRD) Af Amer (>60 ml/min/1.73 sqM) Est GFR (MDRD) Non-Af (>60 ml/min/1.73 sqM) Glucose (74-99) mg/dL Plasma Lactic Acid Rudy 1.3 (0.7-2.0) mmol/L Calcium (8.4-10.2) mg/dL Total Bilirubin (0.2-1.3) mg/dL AST (14-36) U/L ALT (9-52) U/L Alkaline Phosphatase (38-126) U/L Total Creatine Kinase (30-135) U/L CK-MB (CK-2) (0.0-2.4) ng/mL CK-MB (CK-2) Rel Index Troponin I (0.000-0.034) ng/mL Total Protein (6.3-8.2) g/dL Albumin (3.5-5.0) g/dL Amylase (30-110) U/L Lipase (23-300) U/L Urine Color Yellow Urine Appearance Clear (Clear) Urine pH 5.5 (5.0-8.0) Ur Specific [place] 1.020 (1.001-1.035) Urine Protein Trace H (Negative) Urine Glucose (UA) Negative (Negative) Urine Ketones 1+ H (Negative) Urine Blood Trace H (Negative) Urine Nitrite Negative (Negative) Urine Bilirubin Negative (Negative) Urine Urobilinogen 3.0 (<2.0) mg/dL Ur Leukocyte Esterase Large H (Negative) Urine RBC 2 (0-5) /hpf Urine WBC 10 H (0-5) /hpf Ur Squamous Epith Cells 1 (0-4) /hpf Hyaline Casts 15 H (0-2) /lpf Urine Mucus Few H (None) /hpf - Radiology Data Radiology results: report reviewed (I did review the imaging and reports no acute findings.), image reviewed Disposition Clinical Impression: Dehydration, Gastritis, Hypertension Disposition: HOME SELF-CARE Condition: Good Instructions: Acute Nausea and Vomiting (ED), Dehydration (ED), Hypertension ( ED) Referrals: Traci Quinn MD [Primary Care Provider] - 1-2 days
[2017-06-27 12:15] LABS: ALT 16 U/L (9-52); AST 14 U/L (14-36); Alkaline Phosphatase 86 U/L (38-126); Amylase 71 U/L (30-110); Anion Gap 10 mmol/L; Blood Urea Nitrogen 28 mg/dL (7-17); Calcium 9.3 mg/dL (8.4-10.2); Carbon Dioxide 28 mmol/L (22-30); Chloride 105 mmol/L (98-107); Glucose 106 mg/dL (74-99); Non-African American GFR(MDRD) >60 (>60 ml/min/1.73 sqM); Potassium 4.4 mmol/L (3.5-5.1); Sodium 143 mmol/L (137-145); Total Bilirubin 0.8 mg/dL (0.2-1.3); Total Protein 7.3 g/dL (6.3-8.2)
--- NOTE | 2017-06-27 12:16 | XR ---
EXAMINATION TYPE: XR KUB , 2 VIEWS DATE OF EXAM ORDERED: 06/27/2017 HISTORY: abdominal pain. COMPARISON: Previous study dated 03/18/[address] scan of the abdomen and pelvis dated 05/29/2017. FINDINGS: The lung bases are clear. Within the abdomen, the abdominal gas pattern is within normal limits. There is no evidence of obstru ction or free air. No unusual calcifications are seen. IMPRESSION: NO ACUTE INTRA-ABDOMINAL ABNORMALITY.
[2017-06-27 12:23] LABS: INR 1.1 (<1.2); Prothrombin Time 10.7 sec (9.0-12.0)
[2017-06-27 12:25] LABS: Creatine Kinase 37 U/L (30-135)
[2017-06-27 12:28] LABS: Appearance,Urine Clear (Clear); Bilirubin,Urine Negative (Negative); Glucose,Urine (UA) Negative (Negative); Ketones,Urine 1+ (Negative); Leukocyte Esterase,Urine Large (Negative); Mucus,Urine Few /hpf; Nitrite,Urine Negative (Negative); PH, Urine 5.5 (5.0-8.0); Particle Count 7351; Protein,Urine Trace (Negative); RBC,Urine 2 /hpf (0-5); Squamous Epithelial Cell,Urine 1 /hpf (0-4); UA Billing (MACRO vs. MICRO) MICRO; WBC,Urine 10 /hpf (0-5)
[2017-06-27 12:29] LABS: Partial Thromboplastin Time 21.7 sec (22.0-30.0)
[2017-06-27 12:35] LABS: Basophils % (A) 0 %; CH 27.4; CHCM 31.3; Eosinophils # (A) 0.1 k/uL (0-0.7); Eosinophils % (A) 2 %; HCT 38.8 % (34.0-46.0); HDW 2.56; HGB 12.2 gm/dL (11.4-16.0); Hypochromasia Slight; Luc # (Auto) 0.06; Luc % (Auto) 1; Lymphocytes # (A) 1.2 k/uL (1.0-4.8); Lymphocytes % (A) 19 %; MCH 27.8 pg (25.0-35.0); MCHC 31.5 g/dL (31.0-37.0); MCV 88.1 fL (80.0-100.0); Mean Platelet Volume 7.1; Monocytes # (A) 0.3 k/uL (0-1.0); Monocytes % (A) 4 %; Neutrophils # (A) 4.5 k/uL (1.3-7.7); Neutrophils % (A) 74 %; RDW 14.4 % (11.5-15.5); WBC 6.1 k/uL (3.8-10.6); WBC (Perox) 6.06
[2017-06-27 12:38] LABS: Creatine Kinase MB 0.5 ng/mL (0.0-2.4); Troponin I <0.012 ng/mL (0.000-0.034)
[2017-06-27] MEDS ORDERED: METOPROLOL TARTRATE 5 MG/5 ML VIAL IVP STA ×2 (13:40→14:35)
[2017-06-27] MEDS ORDERED: SODIUM CHLORIDE 0.9% 500 ML IV STA (15:03)
[2017-06-27] MEDS ORDERED: hydrALAZINE HCL 20 MG/ML 1 ML VIAL IVP STA (15:04)
[2017-06-27 16:04] VITALS: BP 142/65; PULSE 75; RESP 15; TEMP 97.4
== END 2017-06-27 16:37 | disposition home or self-care (01) ==
LOC: EC 11:30
DX: E86.0 Dehydration (principal); K29.70 Gastritis, unspecified, without bleeding; I10 Essential (primary) hypertension; I25.10 Atherosclerotic heart disease of native coronary artery without angina pectoris; G20 Parkinson's disease; Z86.73 Personal history of transient ischemic attack (TIA), and cerebral infarction without residual deficits; Z85.3 Personal history of malignant neoplasm of breast; Z87.891 Personal history of nicotine dependence; Z79.82 Long term (current) use of aspirin; Z79.899 Other long term (current) drug therapy; Z88.5 Allergy status to narcotic agent; Z88.1 Allergy status to other antibiotic agents; Z91.018 Allergy to other foods; Z91.040 Latex allergy status; Z88.6 Allergy status to analgesic agent; Z88.8 Allergy status to other drugs, medicaments and biological substances; Z91.048 Other nonmedicinal substance allergy status; Z90.49 Acquired absence of other specified parts of digestive tract; Z98.890 Other specified postprocedural states
CPT/HCPCS: 99284 ×2; 96374 ×2; 96375 ×2; 96376 ×2; 96361 ×5; 36415; 80053; 82150; 82550; 82553; 83605; 83690; 84484; 85025; 85610; 85730; 81001; 74000; J0360

== ENCOUNTER 2018-02-22 07:24 | Observation (INO) | payer MEDICARE, BC ==
[2018-02-22] MEDS ORDERED: ASPIRIN 81 MG PO STA (07:46)
[2018-02-22] MEDS ORDERED: NITROGLYCERIN OINT 1 INCH/GM PACKET TOPICAL STA (07:46)
--- NOTE | 2018-02-22 07:54 | ED ---
General Adult HPI - General Chief complaint: Chest Pain Stated complaint: chest pain Time Seen by Provider: 02/22/18 07:25 Source: patient, EMS, RN notes reviewed Mode of arrival: EMS Limitations: no limitations - History of Present Illness Initial comments: This a 77-year-old female presents emergency Department complaining of chest pain. Patient states the pain comes and goes since she went to bed last night. Patient states the pain is sharp in nature but she says is consistent with the pain she had last time she needed a stent about a year ago. Patient denies any difficulty breathing but she states she felt a little lightheaded and she was nauseated when the pain was occurring. Patient denies any diaphoretic episodes. Patient denies any recent fever chills or cough. Patient denies any headache patient denies any numbness or weakness. Patient denies abdominal pain patient denies any vomiting diarrhea. Patient denies any recent injury. Patient denies reproducible pain with palpation. She states nothing she does seems to make the pain better or worse. Patient states currently she is having no pain. - Related Data Home Medications Medication Instructions Recorded Confirmed Aspirin EC [Ecotrin Low Dose] 81 mg PO DAILY 06/27/17 02/22/18 Metoprolol Tartrate [Lopressor] 12.5 mg PO BID 06/27/17 02/22/18 clonazePAM [KlonoPIN] 0.5 mg PO TID PRN 06/27/17 02/22/18 Carbidopa/Levodopa [Rytary ER 2 cap PO 5XD 02/22/18 02/22/18 48.75 mg-195 mg Cap] Ergocalciferol (Vitamin D2) 50,000 unit PO MO 02/22/18 02/22/18 [Vitamin D2] Polyethylene Glycol 3350 [Miralax] 17 gm PO DAILY PRN 02/22/18 02/22/18 Rivastigmine Tartrate [Exelon] 1.5 mg PO BID 02/22/18 02/22/18 Allergies Allergy/AdvReac Type Severity Reaction Status Date / Time acetaminophen Allergy Unknown Verified 02/22/18 07:55 adhesive Allergy Unknown Verified 02/22/18 07:55 clarithromycin [From Biaxin] Allergy Unknown Verified 02/22/18 07:55 codeine Allergy Unknown Verified 02/22/18 07:55 kiwi Allergy Unknown Verified 02/22/18 07:55 latex Allergy Unknown Verified 02/22/18 07:55 levofloxacin [From Levaquin] Allergy Rash/Hives Verified 02/22/18 07:55 morphine Allergy Unknown Verified 02/22/18 07:55 nifedipine [From Procardia] Allergy Unknown Verified 02/22/18 07:55 amantadine AdvReac SHAKINESS Verified 02/22/18 07:55 Review of Systems ROS Statement: Those systems with pertinent positive or pertinent negative responses have been documented in the HPI. ROS Other: All systems not noted in ROS Statement are negative. 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 No radiation or chemotherapy at this point. History of Any Multi-Drug Resistant Organisms: None Reported Past Surgical History: Appendectomy, Section, Cholecystectomy, Hysterectomy, Orthopedic Surgery, Tonsillectomy Additional Past Surgical History / Comment(s): Lt knee arthroscopically, left foot neuroma removal, Lt breast lumpectomy. Bilateral cataract removed. Past Anesthesia/Blood Transfusion Reactions: No Reported Reaction Past Psychological History: No Psychological Hx Reported Smoking Status: Former smoker Past Alcohol Use History: None Reported Past Drug Use History: None Reported - Past Family History Mother Additional Family Medical History / Comment(s): Mother at age 85 with history of coronary artery disease status post CABG and hypertension. Brother(s) Additional Family Medical History / Comment(s): Patient has a brother who from prostate cancer. Sister(s) Additional Family Medical History / Comment(s): Patient has lost 2 sisters one to pancreatic cancer and one to lung cancer. Son(s) Additional Family Medical History / Comment(s): She has had one son from brain tumor. Father Family Medical History: Cancer Additional Family Medical History / Comment(s): Father at age 56 from kidney cancer. General Exam - General Exam Comments Initial Comments: GENERAL: Patient is well-developed and well-nourished. Patient is nontoxic and well- hydrated and is in no acute distress. ENT: Neck is soft and supple. No significant lymphadenopathy is noted. Oropharynx is clear. Moist mucous membranes. Neck has full range of motion without eliciting any pain. EYES: The sclera were anicteric and conjunctiva were pink and moist. Extraocular movements were intact and pupils were equal round and reactive to light. Eyelids were unremarkable. PULMONARY: Unlabored respirations. Good breath sounds bilaterally. No audible rales rhonchi or wheezing was noted. CARDIOVASCULAR: There is a regular rate and rhythm without any murmurs gallops or rubs. ABDOMEN: Soft and nontender with normal bowel sounds. No palpable organomegaly was noted. There is no palpable pulsatile mass. SKIN: Skin is clear with no lesions or rashes and otherwise unremarkable. NEUROLOGIC: Patient is alert and oriented x3. Cranial nerves II through XII are grossly intact. Motor and sensory are also intact. Normal speech, volume and content. Symmetrical smile. MUSCULOSKELETAL: Normal extremities with adequate strength and full range of motion. No lower extremity swelling or edema. No calf tenderness. LYMPHATICS: No significant lymphadenopathy is noted PSYCHIATRIC: Normal psychiatric evaluation. Normal interpersonal interactions appears functionally intact in deals appropriately with others. No signs of depression. No signs of anxiety. Limitations: no limitations Course Vital Signs 02/22/18 02/22/18 07:24 09:00 Temperature 98.2 F Pulse Rate 82 72 Respiratory 20 20 Rate Blood Pressure 138/64 126/72 O2 Sat by Pulse 99 99 Oximetry Medical Decision Making - Medical Decision Making EKG shows normal sinus rhythm at 66 bpm AL interval is 128 QRS is 96 QT interval 408 QTC is 427. Patient's EKG shows some peaked T waves in leads V3 V4 V5 and V6. Chest x-ray shows no acute abnormality. Patient remained chest pain-free throughout the ED stay but because the pain was similar to her previous pain that she had when she had a heart attack I started the patient on heparin. I spoke with Dr. Calderon agreed to admit the patient admitted the patient I consult to cardiology I wrote admitting orders to continue the heparin and aspirin and Nitropaste on the floor. - Lab Data Result diagrams: 02/22/18 08:21 02/22/18 08:21 Lab Results 02/22/18 02/22/18 02/22/18 Range/Units 08:21 08:21 08:21 WBC 5.3 (3.8-10.6) k/uL RBC 4.28 (3.80-5.40) m/uL Hgb 11.8 (11.4-16.0) gm/dL Hct 37.1 (34.0-46.0) % MCV 86.6 (80.0-100.0) fL MCH 27.6 (25.0-35.0) pg MCHC 31.9 (31.0-37.0) g/dL RDW 14.7 (11.5-15.5) % Plt Count 233 (150-450) k/uL Neutrophils % 62 % Lymphocytes % 28 % Monocytes % 5 % Eosinophils % 2 % Basophils % 0 % Neutrophils # 3.3 (1.3-7.7) k/uL Lymphocytes # 1.5 (1.0-4.8) k/uL Monocytes # 0.3 (0-1.0) k/uL Eosinophils # 0.1 (0-0.7) k/uL Basophils # 0.0 (0-0.2) k/uL PT 10.7 (9.0-12.0) sec INR 1.1 (<1.2) APTT 25.1 (22.0-30.0) sec Sodium 144 (137-145) mmol/L Potassium 4.4 (3.5-5.1) mmol/L Chloride 104 (98-107) mmol/L Carbon Dioxide 29 (22-30) mmol/L Anion Gap 11 mmol/L BUN 28 H (7-17) mg/dL Creatinine 0.68 (0.52-1.04) mg/dL Est GFR (CKD-EPI)AfAm >90 (>60 ml/min/1.73 sqM) Est GFR (CKD-EPI)NonAf 86 (>60 ml/min/1.73 sqM) Glucose 93 (74-99) mg/dL Calcium 9.3 (8.4-10.2) mg/dL Magnesium 2.1 (1.6-2.3) mg/dL Total Bilirubin 0.7 (0.2-1.3) mg/dL AST 23 (14-36) U/L ALT 16 (9-52) U/L Alkaline Phosphatase 78 (38-126) U/L Total Creatine Kinase (30-135) U/L CK-MB (CK-2) (0.0-2.4) ng/mL CK-MB (CK-2) Rel Index Troponin I (0.000-0.034) ng/mL Total Protein 7.2 (6.3-8.2) g/dL Albumin 4.0 (3.5-5.0) g/dL 02/22/18 Range/Units 08:21 WBC (3.8-10.6) k/uL RBC (3.80-5.40) m/uL Hgb (11.4-16.0) gm/dL Hct (34.0-46.0) % MCV (80.0-100.0) fL MCH (25.0-35.0) pg MCHC (31.0-37.0) g/dL RDW (11.5-15.5) % Plt Count (150-450) k/uL Neutrophils % % Lymphocytes % % Monocytes % % Eosinophils % % Basophils % % Neutrophils # (1.3-7.7) k/uL Lymphocytes # (1.0-4.8) k/uL Monocytes # (0-1.0) k/uL Eosinophils # (0-0.7) k/uL Basophils # (0-0.2) k/uL PT (9.0-12.0) sec INR (<1.2) APTT (22.0-30.0) sec Sodium (137-145) mmol/L Potassium (3.5-5.1) mmol/L Chloride (98-107) mmol/L Carbon Dioxide (22-30) mmol/L Anion Gap mmol/L BUN (7-17) mg/dL Creatinine (0.52-1.04) mg/dL Est GFR (CKD-EPI)AfAm (>60 ml/min/1.73 sqM) Est GFR (CKD-EPI)NonAf (>60 ml/min/1.73 sqM) Glucose (74-99) mg/dL Calcium (8.4-10.2) mg/dL Magnesium (1.6-2.3) mg/dL Total Bilirubin (0.2-1.3) mg/dL AST (14-36) U/L ALT (9-52) U/L Alkaline Phosphatase (38-126) U/L Total Creatine Kinase 44 (30-135) U/L CK-MB (CK-2) 0.8 (0.0-2.4) ng/mL CK-MB (CK-2) Rel Index 1.8 Troponin I <0.012 (0.000-0.034) ng/mL Total Protein (6.3-8.2) g/dL Albumin (3.5-5.0) g/dL Critical Care Time Critical Care Time: Yes Total Critical Care Time: 35 Disposition Clinical Impression: Unstable angina pectoris Disposition: ADMITTED IP TO THIS HOSP Referrals: Valentin Lugo MD [Primary Care Provider] - 1-2 days Time of Disposition: 09:16
--- NOTE | 2018-02-22 08:33 | XR ---
EXAMINATION TYPE: XR chest 2V DATE OF EXAM: 02/22/2018 COMPARISON: 02/23/2015 HISTORY: Chest pain and fever TECHNIQUE: Frontal and lateral views of the chest are obtained. FINDINGS: There is no focal air space opacity, pleural effusion, or pneumothorax seen. The cardiac silhouette size is within normal limits. The osseous structures are intact. Left breast and axillar y surgical clips are noted. Minimal degenerative changes of the thoracic spine are seen. Atherosclero sis is noted of the upper abdominal aorta and its visualized portions. IMPRESSION: No acute cardiopulmonary process.
[2018-02-22 08:37] LABS: Basophils % (A) 0 %; Eosinophils # (A) 0.1 k/uL (0-0.7); Eosinophils % (A) 2 %; HCT 37.1 % (34.0-46.0); HGB 11.8 gm/dL (11.4-16.0); Lymphocytes # (A) 1.5 k/uL (1.0-4.8); Lymphocytes % (A) 28 %; MCH 27.6 pg (25.0-35.0); MCHC 31.9 g/dL (31.0-37.0); MCV 86.6 fL (80.0-100.0); Mean Platelet Volume 6.8; Monocytes # (A) 0.3 k/uL (0-1.0); Monocytes % (A) 5 %; Neutrophils # (A) 3.3 k/uL (1.3-7.7); Neutrophils % (A) 62 %; Platelet Count 233 k/uL (150-450); RBC 4.28 m/uL (3.80-5.40); RDW 14.7 % (11.5-15.5); WBC 5.3 k/uL (3.8-10.6)
[2018-02-22 08:44] LABS: INR 1.1 (<1.2); Partial Thromboplastin Time 25.1 sec (22.0-30.0); Prothrombin Time 10.7 sec (9.0-12.0)
[2018-02-22 08:48] LABS: ALT 16 U/L (9-52); AST 23 U/L (14-36); Alkaline Phosphatase 78 U/L (38-126); Anion Gap 11 mmol/L; Blood Urea Nitrogen 28 mg/dL (7-17); Calcium 9.3 mg/dL (8.4-10.2); Carbon Dioxide 29 mmol/L (22-30); Chloride 104 mmol/L (98-107); Glucose 93 mg/dL (74-99); Magnesium 2.1 mg/dL (1.6-2.3); Potassium 4.4 mmol/L (3.5-5.1); Sodium 144 mmol/L (137-145); Total Bilirubin 0.7 mg/dL (0.2-1.3); Total Protein 7.2 g/dL (6.3-8.2)
[2018-02-22 08:58] LABS: Creatine Kinase 44 U/L (30-135)
[2018-02-22 09:10] LABS: Creatine Kinase MB 0.8 ng/mL (0.0-2.4); Troponin I <0.012 ng/mL (0.000-0.034)
[2018-02-22] MEDS ORDERED: HEPARIN SODIUM,PORCINE 5,000 UNIT/ML 1 ML VIAL IV ONE (09:14)
[2018-02-22] MEDS ORDERED: NITROGLYCERIN SL TABS 0.4 MG TAB SUBLINGUAL PRN (09:16)
[2018-02-22] MEDS: HEPARIN SODIUM,PORCINE/D5W PMX 25,000 UNIT in DEXTROSE/WATER 1 500ML.BAG IV SCH (09:40)
[2018-02-22] MEDS ORDERED: CARBIDOPA-LEVODOPA ER 50-200MG 1 EACH TABLET.ER PO STA (10:14)
[2018-02-22] MEDS ORDERED: METOPROLOL TARTRATE 12.5 MG TAB PO STA (10:17)
[2018-02-22] MEDS: NITROGLYCERIN OINT 1 INCH/GM PACKET TOPICAL SCH ×2 (13:05→18:04)
[2018-02-22] MEDS ORDERED: clonazePAM 0.5 MG TAB PO PRN (13:05)
[2018-02-22] MEDS ORDERED: POLYETHYLENE GLYCOL 3350 17 GM POWD.PACK PO PRN (13:05)
[2018-02-22] MEDS ORDERED: ERGOCALCIFEROL 50,000 UNIT CAP PO SCH (13:15)
--- NOTE | 2018-02-22 15:29 | CONS ---
CONSULTATION This is a 77-year-old lady with a known history of Parkinson disease, hypertension, and also has CAD who underwent stenting of right coronary artery performed in September [address] Rascon. She sees Dr. Rascon in the outpatient setting. She was scheduled for a stress test, but did not have it done because of a scheduling conflict with another neurology appointment. She came into the hospital with complaints of what seems to be discomfort in the chest. The quality of the discomfort seems very atypical. However, she presented to the emergency room saying that when she went to bed last night she felt good, but when she woke up she has pain that comes and goes and each episode of pain is sharp in nature, lasts a few seconds. Has no relation to breathing or position. Because of recurrent brief sharp episodes of chest pain she is here. She does not have any such symptoms of dizziness, lightheadedness, syncope, near syncope. She is resting comfortably without symptoms. PAST MEDICAL HISTORY: 1. CAD with stenting of right coronary artery in September [place] [address] Rascon. 2. Hypertension. 3. Hyperlipidemia. MEDICATIONS: At home include aspirin 81 mg daily, metoprolol tartrate 12.5 mg b.i.d., Klonopin 0.5 mg daily, Sinemet dose is unclear. She also takes vitamin supplements. ALLERGIES: Allergic to TYLENOL, CLARITIN, LEVOFLOXACIN, MORPHINE, NIFEDIPINE, AMANTADINE. REVIEW OF SYSTEMS: Remarkable for some decrease in overall physical activity. No hematemesis, melena, genitourinary symptoms, fever, chills or cough with expectoration. PAST MEDICAL HISTORY: 1. Remarkable for Parkinson disease, question of TIA, hypertension and CAD with stenting of RCA. 2. Patient also had a breast cancer with left-sided lumpectomy performed. 3. Apparently, she had some liver issues and statins were discontinued. EXAMINATION: Blood pressure is 140/80, pulse rate is about 72 per minute and regular. HEENT: Unremarkable. Fundus was not examined by me. Neck is supple. There is evidence of bilateral carotid bruits, but patient had a workup on this including MRI about 2 weeks ago at [facility]. Heart exam reveals S1, S2 with ejection systolic murmur. Second heart sound is not that well heard. Lungs revealed decent air entry. Abdomen is soft, nontender. Lower extremities reveal palpable pulses. No edema. Central nervous system grossly no focal deficits but the patient has generalized weakness. IMPRESSION: 1. Atypical chest pain in a patient with known coronary artery disease with prior PCI about more than a year ago. 2. Hypertension. 3. Hypercholesterolemia. 4. History of Parkinson disease. 5. History of transient ischemic attack in the past. RECOMMENDATIONS: I am recommending that we will continue her current medications, optimize blood pressure control. Since she already had a carotid workup performed and was normal per patient, no intervention in that regard. However, I will do a Lexiscan stress test and echocardiogram tomorrow followed by office visit and if these are abnormal, she will benefit from cardiac catheterization. I discussed my thoughts in detail with the patient and her . They understand all details and wished to proceed. DAWSON / KULWINDERN: [id number] /
[2018-02-22] MEDS: RYTARY PO SCH ×3 (16:05→23:57)
--- NOTE | 2018-02-22 16:11 | HP ---
HISTORY AND PHYSICAL DATE OF ADMISSION: 02/22/18. PRESENTING COMPLAINT: Chest pain. HISTORY OF PRESENTING COMPLAINT: A very pleasant 77-year-old patient of Dr. Lugo [facility]. The patient also sees nozzle tender, Dr. Rascon. The patient has a known coronary artery disease with stent. Around 5:00 pm yesterday patient developed left precordial sharp pain, stabbing present on and off, coming on and off anywhere from 10-15 minutes. The pain did radiate down to the left armpit and there was no shortness of breath, but the patient did feel dizzy. No perspiration. The patient noticed that it was worse with any activity and better with resting. Because of this presentation, she decided to come in and was admitted for unstable angina. The patient is started on IV heparin. The patient was due to see Dr. Rascon and have a stress test, but because of a conflict with another appointment this was canceled. The patient normally uses a walker to get about. The patient's at the bedside. The patient's chronic stable medical conditions include hypertension, osteoarthritis, Parkinson disease, bilateral feet neuropathy, slight weakness on the left side from prior stroke. REVIEW OF SYSTEMS: CONSTITUTIONAL: Weak, tired. HEENT: None. RESPIRATORY: None. CARDIOVASCULAR: As above. GASTROINTESTINAL: None. GENITOURINARY: None. MUSCULOSKELETAL: Arthritic pain in multiple joints. DERMATOLOGICAL: None. HEMATOLOGICAL: None. LYMPHATICS: None. PSYCHIATRY: A bit anxious. NEUROLOGICAL: Subtle weakness on the left side. Normally uses a walker. PAST MEDICAL HISTORY: Coronary artery disease with stent, stroke with left-sided weakness, hypertension, osteoarthritis, Parkinson disease, bilateral feet neuropathy, herniated cervical discs, cervical pain, back pain with bilateral sciatica, left shoulder cuff tear and left shoulder is frozen, left breast cancer with lumpectomy, right knee skin cancer removed, UTIs, peptic ulcer disease, irritable bowel syndrome, vitamin B12 and D deficiency, left leg varicosities, migraines in the past, occasional tinnitus, past left leg and left ankle fracture. PAST SURGICAL HISTORY: Adenoidectomy, appendectomy, bladder surgery, breast surgery, , cholecystectomy, cardiac catheterization with stent, hysterectomy, stent to the RCA 2016, left breast lumpectomy, bilateral cataract removal with lens implant, left foot neuroma removed, bladder suspension, colonoscopy with benign polypectomy. PSYCH HISTORY: Anxiety. SOCIAL HISTORY: Lives with her spouse. Sister Ava helps out and helps a lot at home. Patient has a cane and a walker and a wheelchair and hospital bed. The patient only smoked as a teenager. No use of recreational drugs. No alcohol. FAMILY HISTORY: Father of a kidney cancer at age of 56. HOME MEDICATIONS: Klonopin 0.5 mg p.o. t.i.d. p.r.n., Exelon 1.5 p.o. b.i.d., MiraLAX 17 g p.o. daily p.r.n., Lopressor 12.5 p.o. b.i.d., vitamin D2 76846 units p.o. on Thursday, Rytary ER 48.75/195 two capsules p.o. every 5 days, aspirin 81 mg p.o. daily. ALLERGIES: To ACETAMINOPHEN, ADHESIVE, BIAXIN, CODEINE, KIWI, LATEX, LEVAQUIN, MORPHINE, NIFEDIPINE, AMANTADINE. PHYSICAL EXAMINATION: VITAL SIGNS ON PRESENTATION: Temperature 98.2, pulse 82, respirations 20, blood pressure 138/64, pulse ox 98% on room air. GENERAL APPEARANCE: Thin build, lying in bed, a bit anxious-appearing. EYES: Pupils equal. Conjunctivae normal. HEENT: External appearance of nose and ears normal. Oral cavity normal. NECK: JVD unable to assess. Mass not palpable. RESPIRATORY: Effort, lungs are clear. CARDIOVASCULAR: First and second sounds normal. No edema. ABDOMEN: Soft, nontender. Liver and spleen not palpable. LYMPHATIC: No lymph node palpable in neck or axillae. PSYCHIATRY: Alert and oriented x3. Mood and affect anxious-appearing. NEUROLOGICAL: Pupils equal. Cranial nerves grossly intact. Power and sensation grossly intact. MUSCULOSKELETAL: Evidence of osteoarthritis in multiple joints. Limited range of motion left shoulder. INVESTIGATIONS: White count 5.3, hemoglobin 11.3, potassium 4.4, BUN 28, creatinine 0.68. Troponin less than 0.012. EKG normal sinus rhythm. ASSESSMENT: 1. Left anterior chest wall pain in a patient with known coronary artery disease, consider acute coronary syndrome. Some features atypical. 2. Coronary artery disease with prior history of stent. 3. Essential hypertension. 4. Primary osteoarthritis. 5. Parkinson disease causing peripheral neuropathy. 6. Irritable bowel syndrome. 7. Anxiety, not otherwise specified. PLAN: Patient is put on aspirin, IV heparin, Lopressor and nitro paste. Cardiology was consulted. Home medications were resumed. Care was discussed the patient and the . Questions were answered. Copy to [facility], Dr. Lugo. DAWSON / SHAINA: [id number] /
[2018-02-22 16:32] LABS: Creatine Kinase MB 0.6 ng/mL (0.0-2.4); Troponin I 0.014 ng/mL (0.000-0.034)
[2018-02-22] MEDS: METOPROLOL TARTRATE 12.5 MG TAB PO SCH (20:06)
[2018-02-22] MEDS ORDERED: DONEPEZIL 5 MG TAB PO SCH (21:00)
[2018-02-22 21:51] LABS: Creatine Kinase 41 U/L (30-135)
[2018-02-22 22:05] LABS: Creatine Kinase MB 0.7 ng/mL (0.0-2.4); Troponin I <0.012 ng/mL (0.000-0.034)
[2018-02-23] MEDS: NITROGLYCERIN OINT 1 INCH/GM PACKET TOPICAL SCH ×3 (00:26→11:28)
[2018-02-23] MEDS ORDERED: AMINOPHYLLINE 500 MG/20 ML VIAL IV PRN (05:00)
[2018-02-23] MEDS: RYTARY PO SCH ×2 (05:22→11:41)
[2018-02-23] MEDS ORDERED: REGADENOSON 0.4 MG/5 ML SYRINGE IV ONE (06:00)
[2018-02-23 06:19] LABS: Basophils % (A) 1 %; Eosinophils # (A) 0.3 k/uL (0-0.7); Eosinophils % (A) 6 %; HCT 35.8 % (34.0-46.0); HGB 11.3 gm/dL (11.4-16.0); Lymphocytes # (A) 2.1 k/uL (1.0-4.8); Lymphocytes % (A) 43 %; MCH 27.5 pg (25.0-35.0); MCHC 31.6 g/dL (31.0-37.0); MCV 86.9 fL (80.0-100.0); Mean Platelet Volume 6.2; Monocytes # (A) 0.2 k/uL (0-1.0); Monocytes % (A) 5 %; Neutrophils # (A) 2.1 k/uL (1.3-7.7); Neutrophils % (A) 43 %; Platelet Count 237 k/uL (150-450); RBC 4.12 m/uL (3.80-5.40); RDW 14.8 % (11.5-15.5); WBC 4.9 k/uL (3.8-10.6)
[2018-02-23 06:49] LABS: Anion Gap 9 mmol/L; Blood Urea Nitrogen 23 mg/dL (7-17); Calcium 8.7 mg/dL (8.4-10.2); Carbon Dioxide 29 mmol/L (22-30); Chloride 105 mmol/L (98-107); Cholesterol 153 mg/dL (<200); Glucose 84 mg/dL (74-99); HDL Cholesterol 40 mg/dL (40-60); LDL Cholesterol,Calculated 98 mg/dL (0-99); Potassium 4.1 mmol/L (3.5-5.1); Sodium 143 mmol/L (137-145); Triglycerides 73 mg/dL (<150)
[2018-02-23] MEDS ORDERED: ASPIRIN 325 MG TAB PO SCH (09:00)
[2018-02-23] MEDS ORDERED: ASPIRIN 81 MG PO SCH (09:00)
[2018-02-23] MEDS ORDERED: METOCLOPRAMIDE 5 MG/ML 2 ML VIAL IVP STA (09:18)
[2018-02-23] MEDS ORDERED: BISACODYL 10 MG SUPP RECTAL STA (11:23)
[2018-02-23] MEDS: HEPARIN SODIUM,PORCINE/D5W PMX 25,000 UNIT in DEXTROSE/WATER 1 500ML.BAG IV SCH (11:27)
[2018-02-23] MEDS: METOPROLOL TARTRATE 12.5 MG TAB PO SCH (11:41)
--- NOTE | 2018-02-23 12:15 | ECHOF ---
Referral Reason:chest pain MEASUREMENTS -------- HEIGHT: 157.5 cm WEIGHT: 59.0 kg BP: 142/62 RVIDd: 2.5 cm (< 3.3) IVSd: 0.9 cm (0.6 - 1.1) LVIDd: 3.8 cm (3.9 - 5.3) LVPWd: 1.0 cm (0.6 - 1.1) IVSs: 1.4 cm LVIDs: 1.6 cm LVPWs: 1.4 cm LAESV Index (A-L): 37.17 ml/m Ao Diam: 2.9 cm (2.0 - 3.7) AV Cusp: 1.1 cm (1.5 - 2.6) LA Diam: 2.9 cm (2.7 - 3.8) EPSS: 0.4 cm MV E Royce: 1.12 m/s MV DecT: 445 ms MV A Royce: 1.19 m/s MV E/A Ratio: 0.94 AV maxP.58 mmHg AV meanP.50 mmHg RAP: 5.00 mmHg RVSP: 31.32 mmHg MV EF SLOPE: 21.46 mm/s (70 - 150) MV EXCURSION: 1.22 cm (> 18.000) FINDINGS -------- Sinus rhythm. This was a technically good study. The left ventricular size is normal. Left ventricular wall thickness is normal. Overall left vent ricular systolic function is normal with, an EF between 60 - 65 %. The right ventricle is normal in size and function. LA is moderately dilated 34-39 ml/m2 The right atrium is normal in size. There is moderate aortic valve sclerosis. There is mild aortic regurgitation. There is mild aorti c stenosis present. Peak/mean gradient across the Aortic Valve is 17.58mmHg / 11.50mmHg. The mitral valve leaflets are mildly thickened. Severe mitral annular calcification present. Mild -to-moderate mitral regurgitation is present. Mild tricuspid regurgitation present. Right ventricular systolic pressure is normal at < 35 mmHg. Trace/mild (physiologic) pulmonic regurgitation. The aortic root size is normal. Normal inferior vena cava with normal inspiratory collapse consistent with estimated right atrial pre ssure of 5 mmHg. There is no pericardial effusion. CONCLUSIONS -------- 1. Sinus rhythm. 2. This was a technically good study. 3. The left ventricular size is normal. 4. Left ventricular wall thickness is normal. 5. Overall left ventricular systolic function is normal with, an EF between 60 - 65 %. 6. LA is moderately dilated 34-39 ml/m2 7. There is moderate aortic valve sclerosis. 8. There is mild aortic regurgitation. 9. There is mild aortic stenosis present. 10. Peak/mean gradient across the Aortic Valve is 17.58mmHg / 11.50mmHg. 11. The mitral valve leaflets are mildly thickened. 12. Severe mitral annular calcification present. 13. [id number] mitral regurgitation is present. 14. Mild tricuspid regurgitation present. 15. Right ventricular systolic pressure is normal at < 35 mmHg. 16. Trace/mild (physiologic) pulmonic regurgitation. 17. The aortic root size is normal. 18. There is no pericardial effusion. CONVEYOR WEIGHER OPERATOR: Denis Hines RDCS
[2018-02-23 12:32] VITALS: BP 185/77; PULSE 75; RESP 18; TEMP 96.5
--- NOTE | 2018-02-23 15:38 | P.PN ---
Subjective Progress Note Date: 02/23/18 6 is a 77-year-old female with known history of Parkinson's disease, hypertension, coronary artery disease and prior PCI who follows with Dr. Simons in the office. She presented to the hospital with symptoms of chest discomfort and was seen in consultation yesterday by Dr. Cynthia Lu. Patient was advised to undergo a Lexiscan stress test, she became quite nauseated earlier today after her injection for her stress test, we did give her some Zofran. In spite of the Zofran, she continued to feel some symptoms of nausea and was refusing to undergo stress test. Enzymes were negative. Objective - Vital Signs Vital signs: Vital Signs Temp 96.5 F L 02/23/18 12:00 Pulse 75 02/23/18 12:00 Resp 18 02/23/18 12:00 BP 185/77 02/23/18 12:00 Pulse Ox 99 02/23/18 12:00 Intake & Output 02/22/18 02/23/18 02/23/18 18:59 06:59 18:59 Intake Total 113.2 85.478 Balance 113.2 85.478 Weight 58.967 kg 59 kg Intake: Intake, IV Titration 113.2 85.478 Amount Heparin Sodium,Porcine/ 113.2 85.478 D5w Pmx 25,000 unit In Dextrose/Water 1 500ml. bag @ 12 UNITS/KG/HR 14. 15 mls/hr IV .Q24H SARAI Rx #:[id number] Other: Voiding Method Toilet Toilet # Voids 2 - Exam PHYSICAL EXAMINATION: GENERAL: 77-year-old female, nauseated but in no apparent distress at the time of my examination. HEENT: Head is atraumatic, normocephalic. Pupils equal, round. Sclera anicteric. Conjunctiva are clear. Mucous membranes of the mouth are moist. Neck is supple. There is no elevated jugular venous pressure.] bruit is heard. HEART EXAMINATION: Heart S1, S2 systolic ejection murmur heard. CHEST EXAMINATION: Lungs are clear to auscultation and precussion. No chest wall tenderness is noted on palpation or with deep breathing. ABDOMEN: Soft, nontender. Bowel sounds are heard. No organomegaly noted. EXTREMITIES: 2+ peripheral pulses with no evidence of peripheral edema and no calf tenderness noted. NEUROLOGIC patient is awake, alert and oriented -3. . - Labs CBC & Chem 7: 02/23/18 05:26 02/23/18 05:26 Labs: Abnormal Lab Results - Last 24 Hours (Table) 02/22/18 02/22/18 02/23/18 Range/Units 15:21 23:46 05:26 Hgb (11.4-16.0) gm/dL APTT 78.8 H 32.0 H (22.0-30.0) sec BUN 23 H (7-17) mg/dL 02/23/18 02/23/18 Range/Units 05:26 05:45 Hgb 11.3 L (11.4-16.0) gm/dL APTT 44.1 H (22.0-30.0) sec BUN (7-17) mg/dL Assessment and Plan Plan: Assessment and plan #1 atypical chest discomfort in a patient with known history of coronary artery disease and prior PCI #2 hypertension #3 hyperlipidemia #4 Parkinson's disease # 5 history of TIA Plan Echocardiogram with Doppler study was performed which revealed normal left ventricular systolic function. Patient because of nausea refused to have her stress test performed today, she was seen by Dr. Cynthia Lu who recommended that she be discharged home and he would schedule a stress test on an outpatient basis. Follow-up appointment in the office with Dr. Simons DNP note has been reviewed, I agree with a documented findings and plan of care. Patient was seen and examined.
--- NOTE | 2018-02-23 23:27 | DS ---
DISCHARGE SUMMARY DATE OF ADMISSION: 02/22/2018. DATE OF DISCHARGE: 02/23/2018 FINAL DIAGNOSES: 1. Left anterior chest wall pain, could be angina/acute coronary syndrome. 2. Coronary artery disease with prior history of stent. 3. Essential hypertension. 4. Primary osteoarthritis. 5. Parkinson disease causing peripheral neuropathy. 6. Irritable bowel syndrome. 7. Anxiety, not otherwise specified. HOSPITAL COURSE: This patient presented with left-sided chest pain. Troponins were negative. Seen by Dr. Marisela Lu, who followed the patient as an outpatient, okayed to be discharged 2D echocardiogram showed EF of 60%-65%. No wall motion abnormality was reported. The patient was symptom-free. EXAM: LUNGS: Fair air entry. CARDIOVASCULAR: First and second sounds normal. DISCHARGE MEDICATIONS: 1. Aspirin 81 mg daily. 2. Lopressor 12.5 p.o. b.i.d. 3. Klonopin 0.5 mg p.o. t.i.d. p.r.n. 4. Rytary ER 48.75/195, 2 capsules p.o. 5 times a day. 5. Vitamin D2 50,000 units on Thursday. 6. MiraLAX 17 g p.o. daily p.r.n. 7. Exelon 1.5 p.o. b.i.d. 8. Imdur ER 50 mg p.o. daily. 9. Nitrostat 0.4 sublingual q.5 p.r.n. FOLLOWUP: With Dr. Rascon in 2 weeks, follow up with Dr. Lugo in 3 days. MMODL / IJN: [id number] /
--- NOTE | 2018-02-24 08:48 | NM ---
EXAMINATION TYPE: NM myocardial SPECT single DATE OF EXAM: 02/24/2018 COMPARISON: NONE HISTORY: Pt was unable to complete stress test yesterday due to extreme sickness/nausea. Subsequently discharged last night, so only resting images were acquired. Hx of CP, palpitations, angina, numbnes s in face/neck, HTN, high cholesterol, family hx of heart disease, prior cath with 2 stents. Prior TI A. Following administration of 10.2 mCi Tc 99m Sestamibi. FINDINGS: Calculated ejection fraction is 41%. Decreased perfusion lateral wall. IMPRESSION: Decreased perfusion lateral wall on this limited rest only study.
== END 2018-02-23 14:41 | disposition home or self-care (01) ==
LOC: EC 07:24 → 6SEL 09:16
PROVIDERS: ADMIT Hospitalist; ATTEND Hospitalist
DX: R07.89 Other chest pain (principal); R11.0 Nausea; R42 Dizziness and giddiness; I25.10 Atherosclerotic heart disease of native coronary artery without angina pectoris; Z95.5 Presence of coronary angioplasty implant and graft; I10 Essential (primary) hypertension; E78.5 Hyperlipidemia, unspecified; M19.91 Primary osteoarthritis, unspecified site; G20 Parkinson's disease; G62.9 Polyneuropathy, unspecified; M54.9 Dorsalgia, unspecified; G89.29 Other chronic pain; M50.20 Other cervical disc displacement, unspecified cervical region; I25.2 Old myocardial infarction; E78.00 Pure hypercholesterolemia, unspecified; I69.354 Hemiplegia and hemiparesis following cerebral infarction affecting left non-dominant side; I83.92 Asymptomatic varicose veins of left lower extremity; G43.909 Migraine, unspecified, not intractable, without status migrainosus; E55.9 Vitamin D deficiency, unspecified; E53.8 Deficiency of other specified B group vitamins; F41.9 Anxiety disorder, unspecified; K58.9 Irritable bowel syndrome, unspecified; Z79.82 Long term (current) use of aspirin; Z79.899 Other long term (current) drug therapy; Z88.6 Allergy status to analgesic agent; Z88.1 Allergy status to other antibiotic agents; Z88.5 Allergy status to narcotic agent; Z88.8 Allergy status to other drugs, medicaments and biological substances; Z91.018 Allergy to other foods; Z91.048 Other nonmedicinal substance allergy status; Z90.49 Acquired absence of other specified parts of digestive tract; Z87.891 Personal history of nicotine dependence; Z85.3 Personal history of malignant neoplasm of breast; Z85.828 Personal history of other malignant neoplasm of skin; Z87.440 Personal history of urinary (tract) infections; Z86.010 Personal history of colon polyps; Z82.49 Family history of ischemic heart disease and other diseases of the circulatory system; Z80.1 Family history of malignant neoplasm of trachea, bronchus and lung; Z80.0 Family history of malignant neoplasm of digestive organs; Z80.51 Family history of malignant neoplasm of kidney; Z80.42 Family history of malignant neoplasm of prostate; Z84.89 Family history of other specified conditions
CPT/HCPCS: 99291 ×2; 96365 ×2; 96376 ×2; 96375; 36415; 93005; 93306; 80061; 80053; 80048; 82550; 82553; 83735; 84484; 85025 ×2; 85610; 85730 ×2; 71046; 78451; G0378 ×2; A9500; J1644 ×2; J2765

== ENCOUNTER 2018-03-07 03:38 | Observation (INO) | payer MEDICARE, BC ==
[2018-03-07] MEDS ORDERED: NITROGLYCERIN OINT 1 INCH/GM PACKET TOPICAL STA (03:42)
[2018-03-07] MEDS ORDERED: NITROGLYCERIN SL TABS 0.4 MG TAB SUBLINGUAL STA (03:42)
--- NOTE | 2018-03-07 03:44 | ED ---
General Adult HPI - General Stated complaint: Chest Pain Time Seen by Provider: 03/07/18 03:40 - History of Present Illness Initial comments: This is a 77-year-old female with past medical history significant for coronary artery stent. Patient also has high blood pressure. Patient woke up this evening with chest pressure radiated to her back. Patient also states she was short of breath. Patient states she was nauseated along with it. When the EMS paramedics arrived they gave the patient nitroglycerin which seemed to help the pain considerably. Patient states she still having some chest pressure and shortness of breath but no or near as much as she had earlier. Patient denies any abdominal pain. Patient denies any actual vomiting. Patient denies any recent fever chills or cough. Patient denies being lightheaded. Patient denies any numbness weakness or headache. Patient denies any heart palpitations. Patient denies any swelling to her legs or any calf tenderness - Related Data Home Medications Medication Instructions Recorded Confirmed Aspirin EC [Ecotrin Low Dose] 81 mg PO DAILY 06/27/17 02/22/18 Metoprolol Tartrate [Lopressor] 12.5 mg PO BID 06/27/17 02/22/18 clonazePAM [KlonoPIN] 0.5 mg PO TID PRN 06/27/17 02/22/18 Carbidopa/Levodopa [Rytary ER 2 cap PO 5XD 02/22/18 02/22/18 48.75 mg-195 mg Cap] Ergocalciferol (Vitamin D2) 50,000 unit PO MO 02/22/18 02/22/18 [Vitamin D2] Polyethylene Glycol 3350 [Miralax] 17 gm PO DAILY PRN 02/22/18 02/22/18 Rivastigmine Tartrate [Exelon] 1.5 mg PO BID 02/22/18 02/22/18 Previous Rx's Medication Instructions Recorded Isosorbide Mononitrate ER [Imdur] 15 mg PO DAILY #30 dose 02/23/18 Nitroglycerin Sl Tabs [Nitrostat] 0.4 mg SUBLINGUAL Q5M PRN #25 tab 02/23/18 Allergies Allergy/AdvReac Type Severity Reaction Status Date / Time adhesive Allergy Unknown Verified 03/07/18 03:52 clarithromycin [From Biaxin] Allergy Unknown Verified 03/07/18 03:52 codeine Allergy Unknown Verified 03/07/18 03:52 kiwi Allergy Unknown Verified 03/07/18 03:52 latex Allergy Unknown Verified 03/07/18 03:52 levofloxacin [From Levaquin] Allergy Rash/Hives Verified 03/07/18 03:52 morphine Allergy Unknown Verified 03/07/18 03:52 nifedipine [From Procardia] Allergy Unknown Verified 03/07/18 03:52 amantadine AdvReac SHAKINESS Verified 03/07/18 03:52 Review of Systems ROS Statement: Those systems with pertinent positive or pertinent negative responses have been documented in the HPI. ROS Other: All systems not noted in ROS Statement are negative. Past Medical History Past Medical History: Coronary Artery Disease (CAD), Cancer, Chest Pain / Angina , CVA/TIA, Hypertension, Myocardial Infarction ([place]), Musculoskeletal Disorder, Neurologic Disorder, Osteoarthritis (OA), Renal Disease Additional Past Medical History / Comment(s): Parkinson's disease with bilateral feet neuropathy, CVA with slight L sided weakness, cardiac murmur, "leaky heart valves", herniated cervical discx with cervical pain, back pain with bilateral sciatica, L shoulder cuff tear and joint is frozen, L breast cancer with lumpectomy, R nares skin cancer removal, cyst on L kidney, mild kidney dysfunction, UTIs, PUD, IBS, benign colon polyp, vitamin B12 and D deficiency, anemia, L leg varicosities, migraines many years ago, occasional tinnitis bilaterally, R ear pain and had MRI recently, past L leg and L ankle fractures. Last Myocardial Infarction Date:: 2016 History of Any Multi-Drug Resistant Organisms: None Reported Past Surgical History: Adenoidectomy, Appendectomy, Bladder Surgery, Breast Surgery, Section, Cholecystectomy, Heart Catheterization, Heart Catheterization With Stent, Hysterectomy, Orthopedic Surgery, Tonsillectomy Additional Past Surgical History / Comment(s): 2017 PCI with stent to RCA, L breast lumpectomy, bilateral cataract removals with lens implants, L knee arthroscopy, L foot neuroma removed, R nares skin cancer removal, bladder suspension, sinus surgery, colonoscopy/benign polypectomy, angiogram. Past Anesthesia/Blood Transfusion Reactions: No Reported Reaction Date of Last Stent Placement:: 2016 Past Psychological History: Anxiety Additional Psychological History / Comment(s): Pt resides with her spouse who has numerous health problems. Pt's sister, Ava is very helpful to them. She comes to their home on a daily basis and does housekeeping and shopping for them. Sister drives pt to her appts. Pt has a cane and a walker and wheelchair and hospital bed, she uses the walker the most. She manages her own medications. Smoking Status: Former smoker Past Alcohol Use History: None Reported Additional Past Alcohol Use History / Comment(s): Patient smoked only as a teenager. No medical marijuana, marijuana, street drug or alcohol use. Past Drug Use History: None Reported - Past Family History Mother Additional Family Medical History / Comment(s): Mother at age 85 with history of coronary artery disease status post CABG and hypertension. Brother(s) Additional Family Medical History / Comment(s): Patient has a brother who from prostate cancer. Sister(s) Additional Family Medical History / Comment(s): Patient has lost 2 sisters one to pancreatic cancer and one to lung cancer. Son(s) Additional Family Medical History / Comment(s): She has had one son from brain tumor. Father Family Medical History: Cancer Additional Family Medical History / Comment(s): Father at age 56 from kidney cancer. General Exam - General Exam Comments Initial Comments: GENERAL: Patient is well-developed and well-nourished. Patient is nontoxic and well- hydrated and is in mild distress. ENT: Neck is soft and supple. No significant lymphadenopathy is noted. Oropharynx is clear. Moist mucous membranes. Neck has full range of motion without eliciting any pain. EYES: The sclera were anicteric and conjunctiva were pink and moist. Extraocular movements were intact and pupils were equal round and reactive to light. Eyelids were unremarkable. PULMONARY: Unlabored respirations. Good breath sounds bilaterally. No audible rales rhonchi or wheezing was noted. CARDIOVASCULAR: There is a regular rate and rhythm with a 1/6 murmur ABDOMEN: Soft and nontender with normal bowel sounds. No palpable organomegaly was noted. There is no palpable pulsatile mass. SKIN: Skin is clear with no lesions or rashes and otherwise unremarkable. NEUROLOGIC: Patient is alert and oriented x3. Cranial nerves II through XII are grossly intact. Motor and sensory are also intact. Normal speech, volume and content. Symmetrical smile. MUSCULOSKELETAL: Normal extremities with adequate strength and full range of motion. No lower extremity swelling or edema. No calf tenderness. LYMPHATICS: No significant lymphadenopathy is noted PSYCHIATRIC: Normal psychiatric evaluation. Normal interpersonal interactions appears functionally intact in deals appropriately with others. No signs of depression. No signs of anxiety. Course Vital Signs 03/07/18 03/07/18 03/07/18 03:39 04:03 04:21 Temperature 97.7 F Pulse Rate 74 69 Respiratory 20 18 Rate Blood Pressure 162/92 146/80 O2 Sat by Pulse 96 98 Oximetry Medical Decision Making - Medical Decision Making EKG shows normal sinus rhythm at 65 bpm [place] interval 242 QRS is 82 QT interval 46 QTC is 422. Rations EKG shows no ST segment elevation or depression no T- wave abnormalities are noted. I compared this EKG to old EKGs there are no acute abnormalities noted Chest x-ray shows no acute abnormality. I started the patient heparin because of the unstable angina picture. I spoke with Dr. Calderon agreed to admit the patient admitted the patient I wrote admitting orders I consult cardiology. I continued heparin and aspirin and Nitropaste on the floor. - Lab Data Result diagrams: 03/07/18 04:08 03/07/18 04:08 Lab Results 03/07/18 03/07/18 03/07/18 Range/Units 04:08 04:08 04:08 WBC 5.5 (3.8-10.6) k/uL RBC 4.25 (3.80-5.40) m/uL Hgb 11.4 (11.4-16.0) gm/dL Hct 36.5 (34.0-46.0) % MCV 85.8 (80.0-100.0) fL MCH 26.8 (25.0-35.0) pg MCHC 31.3 (31.0-37.0) g/dL RDW 14.5 (11.5-15.5) % Plt Count 230 (150-450) k/uL Neutrophils % 44 % Lymphocytes % 44 % Monocytes % 5 % Eosinophils % 5 % Basophils % 1 % Neutrophils # 2.4 (1.3-7.7) k/uL Lymphocytes # 2.4 (1.0-4.8) k/uL Monocytes # 0.3 (0-1.0) k/uL Eosinophils # 0.3 (0-0.7) k/uL Basophils # 0.0 (0-0.2) k/uL PT (9.0-12.0) sec INR (<1.2) APTT (22.0-30.0) sec Sodium 141 (137-145) mmol/L Potassium 4.0 (3.5-5.1) mmol/L Chloride 103 (98-107) mmol/L Carbon Dioxide 28 (22-30) mmol/L Anion Gap 10 mmol/L BUN 26 H (7-17) mg/dL Creatinine 0.74 (0.52-1.04) mg/dL Est GFR (CKD-EPI)AfAm >90 (>60 ml/min/1.73 sqM) Est GFR (CKD-EPI)NonAf 80 (>60 ml/min/1.73 sqM) Glucose 112 H (74-99) mg/dL Calcium 9.3 (8.4-10.2) mg/dL Magnesium 2.1 (1.6-2.3) mg/dL Total Bilirubin 0.8 (0.2-1.3) mg/dL AST 21 (14-36) U/L ALT 21 (9-52) U/L Alkaline Phosphatase 65 (38-126) U/L Total Creatine Kinase 34 (30-135) U/L CK-MB (CK-2) 0.5 (0.0-2.4) ng/mL CK-MB (CK-2) Rel Index 1.5 Troponin I <0.012 (0.000-0.034) ng/mL Total Protein 6.9 (6.3-8.2) g/dL Albumin 3.9 (3.5-5.0) g/dL 03/07/ Range/Units 04:08 WBC (3.8-10.6) k/uL RBC (3.80-5.40) m/uL Hgb (11.4-16.0) gm/dL Hct (34.0-46.0) % MCV (80.0-100.0) fL MCH (25.0-35.0) pg MCHC (31.0-37.0) g/dL RDW (11.5-15.5) % Plt Count (150-450) k/uL Neutrophils % % Lymphocytes % % Monocytes % % Eosinophils % % Basophils % % Neutrophils # (1.3-7.7) k/uL Lymphocytes # (1.0-4.8) k/uL Monocytes # (0-1.0) k/uL Eosinophils # (0-0.7) k/uL Basophils # (0-0.2) k/uL PT 10.2 (9.0-12.0) sec INR 1.0 (<1.2) APTT 24.1 (22.0-30.0) sec Sodium (137-145) mmol/L Potassium (3.5-5.1) mmol/L Chloride (98-107) mmol/L Carbon Dioxide (22-30) mmol/L Anion Gap mmol/L BUN (7-17) mg/dL Creatinine (0.52-1.04) mg/dL Est GFR (CKD-EPI)AfAm (>60 ml/min/1.73 sqM) Est GFR (CKD-EPI)NonAf (>60 ml/min/1.73 sqM) Glucose (74-99) mg/dL Calcium (8.4-10.2) mg/dL Magnesium (1.6-2.3) mg/dL Total Bilirubin (0.2-1.3) mg/dL AST (14-36) U/L ALT (9-52) U/L Alkaline Phosphatase (38-126) U/L Total Creatine Kinase (30-135) U/L CK-MB (CK-2) (0.0-2.4) ng/mL CK-MB (CK-2) Rel Index Troponin I (0.000-0.034) ng/mL Total Protein (6.3-8.2) g/dL Albumin (3.5-5.0) g/dL Critical Care Time Critical Care Time: Yes Total Critical Care Time: 35 Disposition Clinical Impression: Unstable angina Disposition: ADMITTED IP TO THIS HOSP Referrals: Valentin Lugo MD [Primary Care Provider] - 1-2 days Time of Disposition: 05:05
[2018-03-07 04:16] LABS: Basophils % (A) 1 %; Eosinophils # (A) 0.3 k/uL (0-0.7); Eosinophils % (A) 5 %; HCT 36.5 % (34.0-46.0); HGB 11.4 gm/dL (11.4-16.0); Lymphocytes # (A) 2.4 k/uL (1.0-4.8); Lymphocytes % (A) 44 %; MCH 26.8 pg (25.0-35.0); MCHC 31.3 g/dL (31.0-37.0); MCV 85.8 fL (80.0-100.0); Mean Platelet Volume 6.6; Monocytes # (A) 0.3 k/uL (0-1.0); Monocytes % (A) 5 %; Neutrophils # (A) 2.4 k/uL (1.3-7.7); Neutrophils % (A) 44 %; Platelet Count 230 k/uL (150-450); RBC 4.25 m/uL (3.80-5.40); RDW 14.5 % (11.5-15.5); WBC 5.5 k/uL (3.8-10.6)
[2018-03-07 04:25] LABS: ALT 21 U/L (9-52); AST 21 U/L (14-36); Albumin 3.9 g/dL (3.5-5.0); Alkaline Phosphatase 65 U/L (38-126); Anion Gap 10 mmol/L; Blood Urea Nitrogen 26 mg/dL (7-17); Calcium 9.3 mg/dL (8.4-10.2); Carbon Dioxide 28 mmol/L (22-30); Chloride 103 mmol/L (98-107); Glucose 112 mg/dL (74-99); Magnesium 2.1 mg/dL (1.6-2.3); Sodium 141 mmol/L (137-145); Total Bilirubin 0.8 mg/dL (0.2-1.3); Total Protein 6.9 g/dL (6.3-8.2)
[2018-03-07 04:26] LABS: Partial Thromboplastin Time 24.1 sec (22.0-30.0); Prothrombin Time 10.2 sec (9.0-12.0)
[2018-03-07 04:37] LABS: Creatine Kinase 34 U/L (30-135)
--- NOTE | 2018-03-07 04:38 | XR ---
EXAMINATION TYPE: XR chest 2V DATE OF EXAM: 03/07/2018 COMPARISON: NONE HISTORY: Difficulty breathing TECHNIQUE: Frontal and lateral views of the chest are obtained. FINDINGS: Heart and mediastinum are normal. Lungs are clear. Costophrenic angles are clear. There ar e surgical clips over the left breast. There are chest leads. Bony thorax is intact. IMPRESSION: No cardiopulmonary disease. No change.
[2018-03-07 04:50] LABS: Creatine Kinase MB 0.5 ng/mL (0.0-2.4); Troponin I <0.012 ng/mL (0.000-0.034)
[2018-03-07] MEDS ORDERED: HEPARIN SODIUM,PORCINE 5,000 UNIT/ML 1 ML VIAL IV ONE (05:06)
[2018-03-07] MEDS ORDERED: NITROGLYCERIN SL TABS 0.4 MG TAB SUBLINGUAL PRN (05:06)
[2018-03-07] MEDS ORDERED: HEPARIN SODIUM,PORCINE/D5W PMX 25,000 UNIT in DEXTROSE/WATER 1 500ML.BAG IV SCH (05:15)
[2018-03-07] MEDS ORDERED: POLYETHYLENE GLYCOL 3350 17 GM POWD.PACK PO PRN (07:48)
[2018-03-07] MEDS: METOPROLOL TARTRATE 12.5 MG TAB PO SCH ×2 (08:26→20:43)
[2018-03-07] MEDS ORDERED: LOSARTAN 50 MG TAB PO SCH (09:30)
--- NOTE | 2018-03-07 10:15 | P.CRDCN ---
History of Present Illness History of present illness: Patient interviewed and examined. Please see full dictation by nurse practitioner Patient admitted with abdominal symptoms or blood pressure is quite elevated and I'll repeat measurements it is above 200 mmHg systolic. She is being transferred to the sixth floor, heparin is being discontinued, losartan 50 g twice daily is being added and we will gradually maximize her medications. It is quite possible that she has fluctuating blood pressure levels and hence staggered blood pressure medication dosing would be ideal. I will check TSH and cortisol level and renal artery Dopplers. Normal kidney function Past Medical History Past Medical History: Coronary Artery Disease (CAD), Cancer, Chest Pain / Angina , CVA/TIA, Hypertension, Myocardial Infarction ([place]), Musculoskeletal Disorder, Neurologic Disorder, Osteoarthritis (OA), Renal Disease Additional Past Medical History / Comment(s): Parkinson's disease with bilateral feet neuropathy, CVA with slight L sided weakness, cardiac murmur, "leaky heart valves", herniated cervical discx with cervical pain, back pain with bilateral sciatica, L shoulder cuff tear and joint is frozen, L breast cancer with lumpectomy, R nares skin cancer removal, cyst on L kidney, mild kidney dysfunction, UTIs, PUD, IBS, benign colon polyp, vitamin B12 and D deficiency, anemia, L leg varicosities, migraines many years ago, occasional tinnitis bilaterally, R ear pain and had MRI recently, past L leg and L ankle fractures. Last Myocardial Infarction Date:: 2016 History of Any Multi-Drug Resistant Organisms: None Reported Past Surgical History: Adenoidectomy, Appendectomy, Bladder Surgery, Breast Surgery, Section, Cholecystectomy, Heart Catheterization, Heart Catheterization With Stent, Hysterectomy, Orthopedic Surgery, Tonsillectomy Additional Past Surgical History / Comment(s): 2017 PCI with stent to RCA, L breast lumpectomy, bilateral cataract removals with lens implants, L knee arthroscopy, L foot neuroma removed, R nares skin cancer removal, bladder suspension, sinus surgery, colonoscopy/benign polypectomy, angiogram. Past Anesthesia/Blood Transfusion Reactions: No Reported Reaction Date of Last Stent Placement:: 2017 Past Psychological History: Anxiety Additional Psychological History / Comment(s): Pt resides with her spouse who has numerous health problems. Pt's sister, Ava is very helpful to them. She comes to their home on a daily basis and does housekeeping and shopping for them. Sister drives pt to her appts. Pt has a cane and a walker and wheelchair and hospital bed, she uses the walker the most. She manages her own medications. Smoking Status: Never smoker Past Alcohol Use History: None Reported Additional Past Alcohol Use History / Comment(s): Patient smoked only as a teenager. No medical marijuana, marijuana, street drug or alcohol use. Past Drug Use History: None Reported - Past Family History Mother Additional Family Medical History / Comment(s): Mother at age 85 with history of coronary artery disease status post CABG and hypertension. Brother(s) Additional Family Medical History / Comment(s): Patient has a brother who from prostate cancer. Sister(s) Additional Family Medical History / Comment(s): Patient has lost 2 sisters one to pancreatic cancer and one to lung cancer. Son(s) Additional Family Medical History / Comment(s): She has had one son from brain tumor. Father Family Medical History: Cancer Additional Family Medical History / Comment(s): Father at age 56 from kidney cancer. Medications and Allergies Home Medications Medication Instructions Recorded Confirmed Type Aspirin EC [Ecotrin Low Dose] 81 mg PO DAILY 06/27/17 03/07/18 History Metoprolol Tartrate [Lopressor] 12.5 mg PO BID 06/27/17 03/07/18 History clonazePAM [KlonoPIN] 0.5 mg PO TID PRN 06/27/17 03/07/18 History Carbidopa/Levodopa [Rytary ER 2 cap PO 5XD 02/22/18 03/07/18 History 48.75 mg-195 mg Cap] Ergocalciferol (Vitamin D2) 50,000 unit PO MO 02/22/18 03/07/18 History [Vitamin D2] Polyethylene Glycol 3350 [Miralax] 17 gm PO DAILY PRN 02/22/18 03/07/18 History Nitroglycerin Sl Tabs [Nitrostat] 0.4 mg SUBLINGUAL Q5M PRN #25 tab 02/23/18 Rx Allergies Allergy/AdvReac Type Severity Reaction Status Date / Time adhesive Allergy Unknown Verified 03/07/18 03:52 clarithromycin [From Biaxin] Allergy Unknown Verified 03/07/18 03:52 codeine Allergy Unknown Verified 03/07/18 03:52 kiwi Allergy Unknown Verified 03/07/18 03:52 latex Allergy Unknown Verified 03/07/18 03:52 levofloxacin [From Levaquin] Allergy Rash/Hives Verified 03/07/18 03:52 morphine Allergy Unknown Verified 03/07/18 03:52 nifedipine [From Procardia] Allergy Unknown Verified 03/07/18 03:52 amantadine AdvReac SHAKINESS Verified 03/07/18 03:52 Physical Exam Vitals: Vital Signs Temp Pulse Pulse Resp BP BP Pulse Ox 03/07/18 10:12 211/78 03/07/18 08:00 98.0 F 72 18 228/99 98 03/07/18 05:57 98.1 F 74 18 230/86 96 03/07/18 05:39 97.2 F L 70 18 108/60 100 03/07/18 04:21 69 18 146/80 98 03/07/18 04:03 162/92 03/07/18 03:39 97.7 F 74 20 96 Intake and Output 03/06/18 03/07/18 03/07/18 22:59 06:59 14:59 Intake Total 240 Balance 240 Intake: Oral 240 Other: # Voids 1 1 Weight 58.967 kg Results 03/07/18 04:08 03/07/18 04:08 Cardiac Enzymes 03/07/18 03/07/18 Range/Units 04:08 04:08 AST 21 (14-36) U/L CK-MB (CK-2) 0.5 (0.0-2.4) ng/mL Troponin I <0.012 (0.000-0.034) ng/mL Coagulation 03/07/18 Range/Units 04:08 PT 10.2 (9.0-12.0) sec APTT 24.1 (22.0-30.0) sec CBC 03/07/18 Range/Units 04:08 WBC 5.5 (3.8-10.6) k/uL RBC 4.25 (3.80-5.40) m/uL Hgb 11.4 (11.4-16.0) gm/dL Hct 36.5 (34.0-46.0) % Plt Count 230 (150-450) k/uL Comprehensive Metabolic Panel 03/07/18 Range/Units 04:08 Sodium 141 (137-145) mmol/L Potassium 4.0 (3.5-5.1) mmol/L Chloride 103 (98-107) mmol/L Carbon Dioxide 28 (22-30) mmol/L BUN 26 H (7-17) mg/dL Creatinine 0.74 (0.52-1.04) mg/dL Glucose 112 H (74-99) mg/dL Calcium 9.3 (8.4-10.2) mg/dL AST 21 (14-36) U/L ALT 21 (9-52) U/L Alkaline Phosphatase 65 (38-126) U/L Total Protein 6.9 (6.3-8.2) g/dL Albumin 3.9 (3.5-5.0) g/dL Current Medications Generic Name Dose Route Start Last Admin Trade Name Freq PRN Reason Stop Dose Admin Aspirin 81 mg 03/08/18 09:00 Aspirin PO DAILY SARAI Clonazepam 0.5 mg 03/07/18 07:48 Klonopin PO TID PRN Anxiety Ergocalciferol 50,000 unit 03/08/18 12:00 Vitamin D2 PO MO ON LICENSE OF [facility] Losartan Potassium 50 mg 03/07/18 21:00 Cozaar PO BID ON LICENSE OF [facility] Metoprolol Tartrate 12.5 mg 03/07/18 09:00 03/07/18 08:26 Lopressor PO 12.5 mg BID ON LICENSE OF [facility] Administration Nitroglycerin 0.4 mg 03/07/18 05:06 Nitrostat SUBLINGUAL Q5M PRN Chest Pain Carbidopa/Levodopa [ 2 cap 03/07/18 11:00 Rytary Er 48.75 Mg- PO 195 Mg Cap] 2 Cap 5XD ON LICENSE OF [facility] Polyethylene Glycol 17 gm 03/07/18 07:48 Miralax PO DAILY PRN CONSTIPATION Intake and Output 03/06/18 03/07/18 03/07/18 22:59 06:59 14:59 Intake Total 240 Balance 240 Intake: Oral 240 Other: # Voids 1 1 Weight 58.967 kg 03/07/18 04:08 03/07/18 04:08
[2018-03-07 10:18] LABS: Creatine Kinase 39 U/L (30-135)
--- NOTE | 2018-03-07 10:18 | P.CRDCN ---
History of Present Illness History of present illness: Mrs. Chaney is a pleasant 77-year-old female past medical history significant for coronary artery disease s/p angioplasty proximal and mid RCA 2016, hypertension, dyslipdemia and parkinsons disease. She follows with Dr. Rascon in the office. We have been asked to see her in consultation for chest pain. She states she saw Dr. Rascon in the office on and he recommended she citricel for assistance in moving her bowels. She took 2 doses Thursday and 2 more on Thursday. Thursday night she ate some cheerios and milk then started feeling a burning sensation in the epigastric region. She felt a pain in her upper abdomen from the right left side radiating back and forth with associated nausea. She denies associated shortness of breath, palpitations, dizziness, vomiting or diaphoresis. She said after she felt a burning sensation and she started feeling very flushed in her chest and a cheap. She looked in the mirror and she had a lot of redness in the anterior chest up into her neck. She denies pain in the arms, back, neck or jaw. She complains of weight loss over the previous 3-4 months. She states she is consistently constipated although she takes MiraLAX and stool softeners daily. EKG reveals sinus mechanism with LVH. Chest x-ray is negative for an acute cardiopulmonary process. Laboratory data reviewed, hemoglobin 11.4, platelets 230, sodium 141, potassium 4.0, magnesium 2.1, creatinine 0.74, cardiac enzymes negative 1. Current cardiac medications include aspirin 81 mg daily, Lopressor 12.5 mg twice a day. She also takes Klonopin, MiraLAX, vitamin D supplementation, levodopa/carbidopa. Most recent echocardiogram performed September 2016 reveals preserved left ventricular systolic function with ejection fraction 60%, aortic stenosis with a mean gradient 11.5 mmHg, mild to moderate mitral regurgitation and mild TR. At the time of my exam: CONSTITUTIONAL: Denies fever. Denies chills. EYES: Denies blurred vision. Denies vision changes. Denies eye pain. EARS, NOSE, MOUTH & THROAT: Denies headache. Denies sore throat. Denies ear pain. CARDIOVASCULAR: Denies chest pain. Denies shortness of breath. Denies orthopnea. Denies PND. Denies palpitations. RESPIRATORY: Denies cough. GASTROINTESTINAL: Planes of abdominal bloating. Denies diarrhea. Complains of constipation. Denies nausea. Denies vomiting. MUSCULOSKELETAL: Denies myalgias. INTEGUMENTARY: Denies pruitis. Denies rash. NEUROLOGIC: Denies numbness. Denies tingling. Denies weakness. PSYCHIATRIC: Denies anxiety. Denies depression. ENDOCRINE: Denies fatigue. Denies weight change. Denies polydipsia. Denies polyurina. GENITOURINARY: Denies burning, hematuria or urgency with micturation. HEMATOLOGIC: Denies history of anemia. Denies bleeding. Blood pressure 220/99 heart rate 72 afebrile maintaining oxygen saturation on room air GENERAL: This is a 77-year-old female in no apparent distress at the time of my examination. Frail. HEENT: Head is atraumatic, normocephalic. Pupils are equal, round. Sclerae anicteric. Conjunctivae are clear. Mucous membranes of the mouth are moist. Neck is supple. There is no jugular venous distention. No carotid bruit is heard. LUNGS: Clear to auscultation no wheezes, rales or rhonchi. No chest wall tenderness is noted on palpation or with deep breathing. HEART: Regular rate and rhythm with systolic ejection murmurs throughout the precordium, no rubs or gallops. S1 and S2 heard. ABDOMEN: Soft, nontender. Bowel sounds are heard. No organomegaly noted. EXTREMITIES: No evidence of peripheral edema and no calf tenderness noted. VASCULAR: Radial and dorsalis pedis pulses palpated, no evidence of clubbing. NEUROLOGIC: Patient is awake, alert and oriented x3. ASSESSMENT 1. Chest pain, atypical for an acute coronary event. 2. History of coronary artery disease status post angioplasty of the RCA September 2016 3. Hypertensive emergency 4. Dyslipidemia 5. Parkinson's PLAN Repeat blood pressure 202/83. Will add losartan 50 mg BID. Check TSH and random cortisol level. Obtain bilateral renal artery duplex. Check manual blood pressures q shift. Further recommendations to follow based on clinical course. Thank you kindly for this consultation. Nurse Practitioner note has been reviewed, I agree with a documented findings and plan of care. Patient was seen and examined. Past Medical History Past Medical History: Coronary Artery Disease (CAD), Cancer, Chest Pain / Angina , CVA/TIA, Hypertension, Myocardial Infarction ([place]), Musculoskeletal Disorder, Neurologic Disorder, Osteoarthritis (OA), Renal Disease Additional Past Medical History / Comment(s): Parkinson's disease with bilateral feet neuropathy, CVA with slight L sided weakness, cardiac murmur, "leaky heart valves", herniated cervical discx with cervical pain, back pain with bilateral sciatica, L shoulder cuff tear and joint is frozen, L breast cancer with lumpectomy, R nares skin cancer removal, cyst on L kidney, mild kidney dysfunction, UTIs, PUD, IBS, benign colon polyp, vitamin B12 and D deficiency, anemia, L leg varicosities, migraines many years ago, occasional tinnitis bilaterally, R ear pain and had MRI recently, past L leg and L ankle fractures. Last Myocardial Infarction Date:: 2016 History of Any Multi-Drug Resistant Organisms: None Reported Past Surgical History: Adenoidectomy, Appendectomy, Bladder Surgery, Breast Surgery, Section, Cholecystectomy, Heart Catheterization, Heart Catheterization With Stent, Hysterectomy, Orthopedic Surgery, Tonsillectomy Additional Past Surgical History / Comment(s): 2017 PCI with stent to RCA, L breast lumpectomy, bilateral cataract removals with lens implants, L knee arthroscopy, L foot neuroma removed, R nares skin cancer removal, bladder suspension, sinus surgery, colonoscopy/benign polypectomy, angiogram. Past Anesthesia/Blood Transfusion Reactions: No Reported Reaction Date of Last Stent Placement:: 2017 Past Psychological History: Anxiety Additional Psychological History / Comment(s): Pt resides with her spouse who has numerous health problems. Pt's sister, Ava is very helpful to them. She comes to their home on a daily basis and does housekeeping and shopping for them. Sister drives pt to her appts. Pt has a cane and a walker and wheelchair and hospital bed, she uses the walker the most. She manages her own medications. Smoking Status: Never smoker Past Alcohol Use History: None Reported Additional Past Alcohol Use History / Comment(s): Patient smoked only as a teenager. No medical marijuana, marijuana, street drug or alcohol use. Past Drug Use History: None Reported - Past Family History Mother Additional Family Medical History / Comment(s): Mother at age 85 with history of coronary artery disease status post CABG and hypertension. Brother(s) Additional Family Medical History / Comment(s): Patient has a brother who from prostate cancer. Sister(s) Additional Family Medical History / Comment(s): Patient has lost 2 sisters one to pancreatic cancer and one to lung cancer. Son(s) Additional Family Medical History / Comment(s): She has had one son from brain tumor. Father Family Medical History: Cancer Additional Family Medical History / Comment(s): Father at age 56 from kidney cancer. Medications and Allergies Home Medications Medication Instructions Recorded Confirmed Type Aspirin EC [Ecotrin Low Dose] 81 mg PO DAILY 06/27/17 03/07/18 History Metoprolol Tartrate [Lopressor] 12.5 mg PO BID 06/27/17 03/07/18 History clonazePAM [KlonoPIN] 0.5 mg PO TID PRN 06/27/17 03/07/18 History Carbidopa/Levodopa [Rytary ER 2 cap PO 5XD 02/22/18 03/07/18 History 48.75 mg-195 mg Cap] Ergocalciferol (Vitamin D2) 50,000 unit PO MO 02/22/18 03/07/18 History [Vitamin D2] Polyethylene Glycol 3350 [Miralax] 17 gm PO DAILY PRN 02/22/18 03/07/18 History Nitroglycerin Sl Tabs [Nitrostat] 0.4 mg SUBLINGUAL Q5M PRN #25 tab 02/23/18 Rx Allergies Allergy/AdvReac Type Severity Reaction Status Date / Time adhesive Allergy Unknown Verified 03/07/18 03:52 clarithromycin [From Biaxin] Allergy Unknown Verified 03/07/18 03:52 codeine Allergy Unknown Verified 03/07/18 03:52 kiwi Allergy Unknown Verified 03/07/18 03:52 latex Allergy Unknown Verified 03/07/18 03:52 levofloxacin [From Levaquin] Allergy Rash/Hives Verified 03/07/18 03:52 morphine Allergy Unknown Verified 03/07/18 03:52 nifedipine [From Procardia] Allergy Unknown Verified 03/07/18 03:52 amantadine AdvReac SHAKINESS Verified 03/07/18 03:52 Physical Exam Vitals: Vital Signs Temp Pulse Pulse Resp BP BP Pulse Ox 03/07/18 08:00 98.0 F 72 18 228/99 98 03/07/18 05:57 98.1 F 74 18 230/86 96 03/07/18 05:39 97.2 F L 70 18 108/60 100 03/07/18 04:21 69 18 146/80 98 03/07/18 04:03 162/92 03/07/18 03:39 97.7 F 74 20 96 Intake and Output 03/06/18 03/07/18 03/07/18 22:59 06:59 14:59 Intake Total 240 Balance 240 Intake: Oral 240 Other: # Voids 1 1 Weight 58.967 kg Results 03/07/18 04:08 03/07/18 04:08 Cardiac Enzymes 03/07/18 03/07/18 Range/Units 04:08 04:08 AST 21 (14-36) U/L CK-MB (CK-2) 0.5 (0.0-2.4) ng/mL Troponin I <0.012 (0.000-0.034) ng/mL Coagulation 03/07/18 Range/Units 04:08 PT 10.2 (9.0-12.0) sec APTT 24.1 (22.0-30.0) sec CBC 03/07/18 Range/Units 04:08 WBC 5.5 (3.8-10.6) k/uL RBC 4.25 (3.80-5.40) m/uL Hgb 11.4 (11.4-16.0) gm/dL Hct 36.5 (34.0-46.0) % Plt Count 230 (150-450) k/uL Comprehensive Metabolic Panel 03/07/18 Range/Units 04:08 Sodium 141 (137-145) mmol/L Potassium 4.0 (3.5-5.1) mmol/L Chloride 103 (98-107) mmol/L Carbon Dioxide 28 (22-30) mmol/L BUN 26 H (7-17) mg/dL Creatinine 0.74 (0.52-1.04) mg/dL Glucose 112 H (74-99) mg/dL Calcium 9.3 (8.4-10.2) mg/dL AST 21 (14-36) U/L ALT 21 (9-52) U/L Alkaline Phosphatase 65 (38-126) U/L Total Protein 6.9 (6.3-8.2) g/dL Albumin 3.9 (3.5-5.0) g/dL Current Medications Generic Name Dose Route Start Last Admin Trade Name Nan PRN Reason Stop Dose Admin Aspirin 81 mg 03/08/18 09:00 Aspirin PO DAILY [facility] Clonazepam 0.5 mg 03/07/18 07:48 Klonopin PO TID PRN Anxiety Ergocalciferol 50,000 unit 03/08/18 12:00 Vitamin D2 PO MO [facility] Heparin Sodium/Dextrose 25,000 500 mls @ 14.15 mls/hr 03/07/18 05:15 05:37 unit/ IV Solution IV 12 units/kg/hr .Q24H SARAI 14.15 mls/hr Protocol Administration 12 UNITS/KG/HR Metoprolol Tartrate 12.5 mg 03/07/18 09:00 03/07/18 08:26 Lopressor PO 12.5 mg BID SARAI Administration Nitroglycerin 1 inch 03/07/18 12:00 Nitro-Bid Oint TOPICAL Q6HR [facility] Nitroglycerin 0.4 mg 03/07/18 05:06 Nitrostat SUBLINGUAL Q5M PRN Chest Pain Carbidopa/Levodopa [ 2 cap 03/07/18 11:00 Rytary Er 48.75 Mg- PO 195 Mg Cap] 2 Cap 5XD [facility] Polyethylene Glycol 17 gm 03/07/18 07:48 Miralax PO DAILY PRN CONSTIPATION Intake and Output 03/06/18 03/07/18 03/07/18 22:59 06:59 14:59 Intake Total 240 Balance 240 Intake: Oral 240 Other: # Voids 1 1 Weight 58.967 kg 03/07/18 04:08 03/07/18 04:08
[2018-03-07 10:29] LABS: Creatine Kinase MB 0.6 ng/mL (0.0-2.4); Troponin I <0.012 ng/mL (0.000-0.034)
[2018-03-07] MEDS: LEVODOPA PO SCH ×3 (11:55→22:00)
[2018-03-07] MEDS: CARBIDOPA PO SCH ×3 (11:55→22:00)
[2018-03-07] MEDS ORDERED: NITROGLYCERIN OINT 1 INCH/GM PACKET TOPICAL SCH (12:00)
[2018-03-07 16:39] LABS: Creatine Kinase 38 U/L (30-135)
[2018-03-07 16:51] LABS: Creatine Kinase MB 0.5 ng/mL (0.0-2.4); Troponin I <0.012 ng/mL (0.000-0.034)
--- NOTE | 2018-03-07 20:27 | HP ---
HISTORY AND PHYSICAL DATE OF ADMISSION: 03/07/18. DATE OF SERVICE: 03/07/18. PRESENTING COMPLAINT: Abdominal pain. HISTORY OF PRESENTING COMPLAINT: This is a very pleasant 77-year-old patient who was in the hospital about 2 weeks ago. The patient's chronic stable medical conditions include coronary artery disease, hypertension, primary osteoarthritis, Parkinson disease causing peripheral neuropathy, irritable bowel syndrome, anxiety, not otherwise specified. Patient normally has a bowel movement about once a week. Often takes enema for the same. The patient presented with multitude of symptoms. In the ER it was felt she had a chest pain, but actually patient describes the pain starting out in the pelvic area and going up to the epigastric area is pretty significant and patient felt nauseated the whole time. A little bit dizzy. it came out the epigastric, she was concerned of the heart. Took nitroglycerin, but did not help. She did take blood pressure, which is noted at over 220/110. There was no edema. No cough. No fever. In fact patient states that it seems she has not had a bowel movement for at least about 10 days. Patient when presented her blood pressure was still running at over 200 systolic and patient was moved by Dr. Lopez to the telemetry floor and antihypertensives were added in form of Cozaar 50 mg b.i.d. The patient denies any chest pain per se. REVIEW OF SYSTEMS: CONSTITUTIONAL: Tired. HEENT: None. RESPIRATORY: As above. CARDIOVASCULAR: No chest pain. GASTROINTESTINAL: As above. GENITOURINARY: None. MUSCULOSKELETAL: Pain in many joints. DERMATOLOGICAL, HEMATOLOGIC, LYMPHATIC: None. PSYCHIATRY: None. NEUROLOGICAL: Treated for Parkinson's. Normally uses a walker. PAST MEDICAL HISTORY: Coronary artery via stent, stroke with left-sided weakness, hypertension, osteoarthritis, Parkinson disease, bilateral distal neuropathy, herniated cervical disc, cervical pain, back pain with bilateral sciatica, left shoulder cuff tear and left shoulder is frozen, left breast cancer lumpectomy, right knee skin cancer removed, UTIs, peptic ulcer disease, irritable bowel syndrome, vitamin B12 and D deficiency, left leg varicosities, migraine in the past, occasional tinnitus, left leg and left ankle fractures. PAST SURGICAL HISTORY: Appendectomy, adenoidectomy, bladder surgery, breast surgery, , cholecystectomy, cardiac cath with stent, hysterectomy, stent to the RCA 2016, left breast lumpectomy, bilateral cataract removal with lens implant, left foot neuroma removed, bladder suspension, colonoscopy with benign polypectomy. PSYCH HISTORY: Anxiety. SOCIAL HISTORY: . The sister Ava helps out at home. The patient has a cane and a walker and a wheelchair and hospital bed. No recreation drug use. No smoking. No alcohol. FAMILY HISTORY: Father of kidney cancer at age of 56. HOME MEDICATIONS: 1. Klonopin 0.5 p.o. t.i.d. p.r.n. 2. MiraLAX 17 g p.o. daily p.r.n. 3. Nitrostat 0.4 sublingual q.5 p.r.n. 4. Lopressor 12.5 p.o. b.i.d. 5. Vitamin D2 95422 units p.o. on Mondays. 6. Rytary ER 48.75/195, 2 capsules p.o. 5 times a day. 7. Aspirin 81 mg p.o. daily. ALLERGIES: To adhesive, cephamycin, codeine, kiwi, latex, Levaquin, morphine, nifedipine, amantadine. PHYSICAL EXAMINATION: Vital signs on presentation: Temperature 97.7, pulse 74, respiration 20, blood pressure went up to 230/86, pulse ox 96% on room air. GENERAL APPEARANCE: Thin build, lying in bed, awake. EYES: Pupils equal. Conjunctivae normal. HEENT: External appearance of nose and ears normal. Oral cavity normal. NECK: JVD unable to assess. Mass not palpable. RESPIRATORY: Effort normal. Lungs are clear. CARDIOVASCULAR: First and second sounds, no edema. ABDOMEN: Soft, minimal tenderness. Liver and spleen not palpable. LYMPHATIC: No lymph nodes palpable in neck or axillae. PSYCHIATRY: Alert and oriented x3. Mood and affect anxious-appearing. NEUROLOGICAL: Pupils equal. Cranial nerves grossly intact. Power and sensation grossly intact. MUSCULOSKELETAL: Evidence of osteoarthritis in multiple joints. Limited range of motion in the left shoulder. INVESTIGATIONS: White count 5.5, hemoglobin 11.4, potassium 4.2, BUN 26, creatinine 0.74. Troponin x3 negative. TSH is normal. EKG normal sinus rhythm. ASSESSMENT: 1. Abdominal pain from severe constipation. Patient had a bowel movement for over 10 days. 2. Essential hypertension uncontrolled, probably a component of anxiety. 3. Coronary artery disease with prior history of stent. 4. Primary osteoarthritis. 5. Parkinson disease causing peripheral neuropathy. 6. Irritable bowel syndrome. 7. Anxiety, not otherwise specified. PLAN: Patient is started on Cozaar by Cardiology. We will give the patient soapsuds enema. We will also add Metamucil. Care was discussed with the patient. Blood pressure checks to be maintained. MMODL / IJN: [id number] /
[2018-03-07] MEDS: PSYLLIUM HUSK 100% 6 GM PACKET PO SCH (20:38)
[2018-03-07] MEDS: RYTARY PO SCH (20:39)
[2018-03-07] MEDS: LOSARTAN 50 MG TAB PO SCH (20:43)
[2018-03-08] MEDS: RYTARY PO SCH ×6 (01:56→23:05)
[2018-03-08 03:32] LABS: Cholesterol 176 mg/dL (<200); HDL Cholesterol 40 mg/dL (40-60); LDL Cholesterol,Calculated 120 mg/dL (0-99); Triglycerides 80 mg/dL (<150)
[2018-03-08] MEDS ORDERED: ASPIRIN 325 MG TAB PO SCH (09:00)
[2018-03-08] MEDS: ASPIRIN 81 MG PO SCH (09:29)
[2018-03-08] MEDS: METOPROLOL TARTRATE 12.5 MG TAB PO SCH ×2 (09:29→20:23)
[2018-03-08] MEDS: LOSARTAN 50 MG TAB PO SCH ×2 (09:30→20:23)
[2018-03-08] MEDS: PSYLLIUM HUSK 100% 6 GM PACKET PO SCH ×2 (09:30→20:23)
--- NOTE | 2018-03-08 11:54 | P.PN ---
Subjective Progress Note Date: 03/08/18 Mrs. Chaney is a pleasant 77-year-old female past medical history significant for coronary artery disease s/p angioplasty proximal and mid RCA 2016, hypertension, dyslipdemia and parkinsons disease. She follows with Dr. Rascon in the office. We have been asked to see her in consultation for chest pain. She states she saw Dr. Rascon in the office on and he recommended Citricel for assistance in moving her bowels. She took 2 doses Thursday and 2 more on Thursday. Thursday night she ate some cheerios and milk then started feeling a burning sensation in the epigastric region. She felt a pain in her upper abdomen from the right left side radiating back and forth with associated nausea. She states she also developed subsequent rash. She denies associated shortness of breath, palpitations, dizziness, vomiting or diaphoresis. She said after she felt a burning sensation and she started feeling very flushed in her chest. She looked in the mirror and she had a lot of redness in the anterior chest up into her neck. She denies pain in the arms, back, neck or jaw. She complains of weight loss over the previous 3-4 months. She states she is consistently constipated although she takes MiraLAX and stool softeners daily. Patient was also noted to have a significantly elevated blood pressure on presentation here and adjustments have been made to her medications. According to the patient, Dr. Simons had recently reduced her Cozaar because of hypotension in the office. Blood pressure this morning 148/60 with a heart rate 50's. She feels well overall,, states she didn't sleep well last night because of her tremors from her Parkinson's. Patient did go down this morning for her renal artery duplex which is yet pending. Objective - Vital Signs Vital signs: Vital Signs Temp 97.6 F 03/08/18 11:23 Pulse 53 L 03/08/18 11:23 Resp 20 03/08/18 11:23 BP 137/66 03/08/18 11:23 Pulse Ox 97 03/08/18 11:23 Intake & Output 03/07/18 03/08/18 03/08/18 18:59 06:59 18:59 Intake Total 480 200 Balance 480 200 Weight 57.6 kg Intake: Intake, IV Titration 0 Amount Heparin Sodium,Porcine/ 0 D5w Pmx 25,000 unit In Dextrose/Water 1 500ml. bag @ 12 UNITS/KG/HR 14. 15 mls/hr IV .Q24H [facility] Rx #:[id number] Oral 480 200 Other: Voiding Method Toilet # Voids 2 2 1 # Bowel Movements 1 - Exam PHYSICAL EXAMINATION: GENERAL: This is a 77-year-old female in no apparent distress at the time of my examination HEENT: Head is atraumatic, normocephalic. Pupils equal, round. Sclera anicteric. Conjunctiva are clear. Mucous membranes of the mouth are moist. Neck is supple. There is no elevated jugular venous pressure.] bruit is heard. HEART EXAMINATION: Heart S1 and S2 systolic ejection murmur is heard. CHEST EXAMINATION: Lungs are clear to auscultation and precussion. No chest wall tenderness is noted on palpation or with deep breathing. ABDOMEN: Soft, nontender. Bowel sounds are heard. No organomegaly noted. EXTREMITIES: 2+ peripheral pulses with no evidence of peripheral edema and no calf tenderness noted. NEUROLOGIC patient is awake, alert and oriented -3. . - Labs CBC & Chem 7: 03/07/18 04:08 03/07/18 04:08 Labs: Abnormal Lab Results - Last 24 Hours (Table) 03/07/18 Range/Units 04:08 LDL Cholesterol, Calc 120 H (0-99) mg/dL Assessment and Plan Plan: ASSESSMENT and plan 1. Chest pain, atypical for an acute coronary event. 2. History of coronary artery disease status post angioplasty of the RCA September 2016 3. Hypertensive emergency 4. Dyslipidemia 5. Parkinson's Plan We will add a small dose of diuretics in the form of Dyazide to her medication regime today. Continue to monitor blood pressure closely. DNP note has been reviewed, I agree with a documented findings and plan of care. Patient was seen and examined.
[2018-03-08] MEDS ORDERED: ERGOCALCIFEROL 50,000 UNIT CAP PO SCH (12:00)
[2018-03-08] MEDS: TRIAMTERENE-HCTZ 37.5-25MG 1 EACH CAP PO SCH (12:07)
--- NOTE | 2018-03-08 13:24 | US ---
EXAMINATION TYPE: US renal artery duplex complet DATE OF EXAM: 03/08/2018 COMPARISON: NONE CLINICAL HISTORY: 77-year-old female elevated blood pressure. TECHNIQUE: Multiple sonographic images of the kidneys are obtained. Color Doppler and spectral wavefo rm analysis of the renal arteries. FINDINGS: RENAL SIZE: Rt Kidney: 8.8 x 3.6 x 3.7cm without hydronephrosis. There is a 1.5 cm cortical cyst in the upper philly e. Lt Kidney: 8.8 x 4.7 x 3.2cm without hydronephrosis. MEASUREMENTS: Aorta PSV: 60.8 cm/s RESISTANCE INDEX Right: 0.7 Left: 0.6 RA/AO RATIO (normal < 3.5 ) Right: 1.48 Left: 1.16 RA VELOCITY ( normal < 180 cm/s) Right: 89.9 Left: 70.5 Buggy Runner notes: Technically difficult study. Limitations due to excessive overlying bowel gas, se jordana limitations on left. Unable to visualized kidneys or arteries in their entirety especially on th e left. Right renal artery tortuous, left renal artery seen only in small portion. Kidneys measure small. Measurements appear normal, however left Limited visualization of the left renal artery, unable to vi sualize proximal portion. IMPRESSION: Technically limited exam, unable to adequately visualize portions of the left renal artery. No convin cing findings of renal artery stenosis by ultrasound. If there remains persistent clinical concern, c onsider CT or MR angiography
[2018-03-08 14:00] VITALS: BMI 23.2
[2018-03-08] MEDS: CEPHALEXIN 500 MG CAP PO SCH ×2 (15:18→20:23)
--- NOTE | 2018-03-08 21:30 | P.PN ---
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 History of left breast cancer status post lumpectomy she was recently discharged from hospital on 02/22/2018 for chest pain, that time she couldn't tolerate the stress test due to nausea which was deferred as an outpatient. Now patient presents because of chest pressure pressure and dyspnea, associated with itching of one-day duration, this happened 1 day after she was a started on medication because she was not moving her bowel that starts with see IT as per patient, patient cannot remember the name of the medication and she was asked to bring this new medication to the hospital by the help of her and she agrees Objective - Vital Signs Vital signs: Vital Signs Temp 96.2 F L 03/08/18 09:10 Pulse 60 03/08/18 09:10 Resp 20 03/08/18 09:10 BP 137/60 03/08/18 09:10 Pulse Ox 98 03/08/18 09:10 Intake & Output 03/07/18 03/08/18 03/08/18 18:59 06:59 18:59 Intake Total 480 200 Balance 480 200 Weight 57.6 kg Intake: Intake, IV Titration 0 Amount Heparin Sodium,Porcine/ 0 D5w Pmx 25,000 unit In Dextrose/Water 1 500ml. bag @ 12 UNITS/KG/HR 14. 15 mls/hr IV .Q24H [facility] Rx #:[id number] Oral 480 200 Other: Voiding Method Toilet # Voids 2 2 1 # Bowel Movements 1 - Exam GENERAL: The patient is alert and oriented x3, not in any acute distress. Well developed, well nourished. HEENT: Pupils are round and equally reacting to light. EOMI. No scleral icterus. No conjunctival pallor. Normocephalic, atraumatic. No pharyngeal erythema. No thyromegaly. CARDIOVASCULAR: S1 and S2 present. No murmurs, rubs, or gallops. PULMONARY: Chest is clear to auscultation, no wheezing or crackles. ABDOMEN: Soft, nontender, nondistended, normoactive bowel sounds. No palpable organomegaly. MUSCULOSKELETAL: No joint swelling or deformity. EXTREMITIES: No cyanosis, clubbing, or pedal edema. NEUROLOGICAL: Gross neurological examination did not reveal any focal deficits. SKIN: No rashes. - Labs CBC & Chem 7: 03/07/18 04:08 03/07/18 04:08 Labs: Abnormal Lab Results - Last 24 Hours (Table) 03/07/18 Range/Units 04:08 LDL Cholesterol, Calc 120 H (0-99) mg/dL Assessment and Plan Plan: -Chest pressure syndrome, serial troponins were negative, echo showing ejection fraction 60-65%. Cardiology consult is appreciated and they recommended medical management. Patient had chest pressure and dyspnea after she was started on medication, mostly related to ALLERGIC reaction this medication patient was instructed to avoid using such medication (exact medication is unknown and asked patient to bring it from home) -Hypertensive emergency , Hypertension was uncontrolled on admission with systolic was 226. Literacy Education Professor recommended losartan 50 mg twice a day and recommended renal artery duplex: Pending results. TSH 1.7 and random cortisol level 18 (both within normal level). Blood pressure is better controlled now. Dyazide (triamterene/HCTZ) was added by cardiology team -History of hyperlipidemia continue with the same treatment -History of Parkinson, continue with same and treatment -Possible UTI with positive UA, start keflex x 3 days DVT Px: heparin pt/ot ; pending
[2018-03-09] MEDS: RYTARY PO SCH ×4 (06:25→20:44)
--- NOTE | 2018-03-09 08:04 | P.PN ---
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 History of left breast cancer status post lumpectomy she was recently discharged from hospital on 02/22/2018 for chest pain, that time she couldn't tolerate the stress test due to nausea which was deferred as an outpatient. Now patient presents because of chest pressure pressure and dyspnea, associated with itching of one-day duration, this happened 1 day after she was a started on medication because she was not moving her bowel that starts with see IT as per patient, patient cannot remember the name of the medication and she was asked to bring this new medication to the hospital by the help of her and she agrees On 03/09/2018 Patient was lying in bed comfortable, not in distress. Patient denies chest pain or dyspnea and states her chest discomfort has resolved completely. She denies any other complaints, no change in bowel habit, no fever. Patient was informed she has UTI, she states over the last 2 weeks she's been peeing a lot over the night, however she denies dysuria or urgency Objective - Vital Signs Vital signs: Vital Signs Temp 96.5 F L 03/09/18 04:00 Pulse 55 L 03/09/18 04:00 Resp 18 03/09/18 04:00 BP 136/60 03/09/18 04:00 Pulse Ox 92 L 03/09/18 04:00 Intake & Output 03/08/18 03/09/18 03/09/18 18:59 06:59 18:59 Intake Total 560 Balance 560 Weight 57.6 kg 57.7 kg Intake: Oral 560 Other: Voiding Method Toilet Toilet # Voids 2 1 # Bowel Movements 1 - Exam GENERAL: The patient is alert and oriented x3, not in any acute distress. Well developed, well nourished. HEENT: Pupils are round and equally reacting to light. EOMI. No scleral icterus. No conjunctival pallor. Normocephalic, atraumatic. No pharyngeal erythema. No thyromegaly. CARDIOVASCULAR: S1 and S2 present. No murmurs, rubs, or gallops. PULMONARY: Chest is clear to auscultation, no wheezing or crackles. ABDOMEN: Soft, nontender, nondistended, normoactive bowel sounds. No palpable organomegaly. MUSCULOSKELETAL: No joint swelling or deformity. EXTREMITIES: No cyanosis, clubbing, or pedal edema. NEUROLOGICAL: Gross neurological examination did not reveal any focal deficits. SKIN: No rashes. - Labs CBC & Chem 7: 03/07/18 04:08 03/07/18 04:08 Assessment and Plan Plan: -Chest pressure syndrome, serial troponins were negative, echo showing ejection fraction 60-65%. Cardiology consult is appreciated and they recommended medical management. Patient had chest pressure and dyspnea after she was started on medication, mostly related to ALLERGIC reaction this medication patient was instructed to avoid using such medication (exact medication is unknown and asked patient to bring it from home) -Hypertensive emergency , Hypertension was uncontrolled on admission with systolic was 226. [employer] Operator recommended losartan 50 mg twice a day and recommended renal artery duplex: Pending results. TSH 1.7 and random cortisol level 18 (both within normal level). Blood pressure is better controlled now. Dyazide (triamterene/HCTZ) was added by cardiology team -History of hyperlipidemia continue with the same treatment -History of Parkinson, continue with same and treatment -Possible UTI with positive UA, start keflex x 3 days DVT Px: heparin pt/ot ; pending
[2018-03-09] MEDS: PSYLLIUM HUSK 100% 6 GM PACKET PO SCH ×2 (08:30→20:44)
[2018-03-09] MEDS: CEPHALEXIN 500 MG CAP PO SCH ×2 (08:30→20:44)
[2018-03-09] MEDS: METOPROLOL TARTRATE 12.5 MG TAB PO SCH ×2 (08:30→20:44)
[2018-03-09] MEDS: TRIAMTERENE-HCTZ 37.5-25MG 1 EACH CAP PO SCH (08:30)
[2018-03-09] MEDS: ASPIRIN 81 MG PO SCH (08:32)
[2018-03-09] MEDS: LOSARTAN 50 MG TAB PO SCH ×2 (10:40→20:44)
[2018-03-09] MEDS ORDERED: ONDANSETRON 4 MG/2 ML VIAL IVP PRN (10:54)
[2018-03-09] MEDS ORDERED: PANTOPRAZOLE 40 MG/10 ML VIAL IVP SCH (11:00)
[2018-03-09] MEDS: HEPARIN SODIUM,PORCINE 5,000 UNIT/ML 1 ML VIAL SQ SCH ×2 (11:25→20:44)
[2018-03-09] MEDS: clonazePAM 0.5 MG TAB PO PRN ×2 (11:44→17:23)
--- NOTE | 2018-03-09 12:04 | P.PN ---
Subjective Progress Note Date: 03/09/18 Mrs. Chaney is a pleasant 77-year-old female past medical history significant for coronary artery disease s/p angioplasty proximal and mid RCA 2016, hypertension, dyslipdemia and parkinsons disease. She follows with Dr. Rascon in the office. We have been asked to see her in consultation for chest pain. She states she saw Dr. Rascon in the office on and he recommended Citricel for assistance in moving her bowels. She took 2 doses Thursday and 2 more on Thursday. Thursday night she ate some cheerios and milk then started feeling a burning sensation in the epigastric region. She felt a pain in her upper abdomen from the right left side radiating back and forth with associated nausea. She states she also developed subsequent rash. She denies associated shortness of breath, palpitations, dizziness, vomiting or diaphoresis. She said after she felt a burning sensation and she started feeling very flushed in her chest. She looked in the mirror and she had a lot of redness in the anterior chest up into her neck. She denies pain in the arms, back, neck or jaw. She complains of weight loss over the previous 3-4 months. She states she is consistently constipated although she takes MiraLAX and stool softeners daily. Patient was also noted to have a significantly elevated blood pressure on presentation here and adjustments have been made to her medications. According to the patient, Dr. Simons had recently reduced her Cozaar because of hypotension in the office. Blood pressure this morning 148/60 with a heart rate 50's. She feels well overall,, states she didn't sleep well last night because of her tremors from her Parkinson's. Patient did go down this morning for her renal artery duplex which is yet pending. 03/09/2018 Patient seen and examined this morning, quite nauseated after coming out of the shower, no emesis. Blood pressure 136/60, 138/60,112/5-. She did have an episode through the night where the pressure went up however we will keep her medications as they are right now, because patient does have some labile blood pressures secondary to her Parkinson's. From our perspective she may be able to be discharged once cleared by primary and we will make her a follow-up appointment to see Dr. Simons in the office post discharge. Objective - Vital Signs Vital signs: Vital Signs Temp 96.9 F L 03/09/18 11:24 Pulse 59 L 03/09/18 11:24 Resp 20 03/09/18 11:24 BP 138/61 03/09/18 11:24 Pulse Ox 96 03/09/18 11:24 Intake & Output 03/08/18 03/09/18 03/09/18 18:59 06:59 18:59 Intake Total 560 Output Total 1 Balance 560 -1 Weight 57.6 kg 57.7 kg Intake: Oral 560 Output: Emesis 1 Other: Voiding Method Toilet Toilet Toilet # Voids 2 1 2 # Bowel Movements 1 - Exam PHYSICAL EXAMINATION: GENERAL: This is a 77-year-old female in no apparent distress at the time of my examination HEENT: Head is atraumatic, normocephalic. Pupils equal, round. Sclera anicteric. Conjunctiva are clear. Mucous membranes of the mouth are moist. Neck is supple. There is no elevated jugular venous pressure.] bruit is heard. HEART EXAMINATION: Heart S1 and S2 systolic ejection murmur is heard. CHEST EXAMINATION: Lungs are clear to auscultation and precussion. No chest wall tenderness is noted on palpation or with deep breathing. ABDOMEN: Soft, nontender. Bowel sounds are heard. No organomegaly noted. EXTREMITIES: 2+ peripheral pulses with no evidence of peripheral edema and no calf tenderness noted. NEUROLOGIC patient is awake, alert and oriented -3. . - Labs CBC & Chem 7: 03/07/18 04:08 03/07/18 04:08 Assessment and Plan Plan: ASSESSMENT and plan 1. Chest pain, atypical for an acute coronary event. 2. History of coronary artery disease status post angioplasty of the RCA September 2016 3. Hypertensive emergency 4. Dyslipidemia 5. Parkinson's Plan From cardiology's perspective, we will continue the patient on the current medication she is on at this time. She may be able to be discharged once cleared by primary and we will make her a follow-up appointment to see Dr. Simons in the office post discharge. DNP note has been reviewed, I agree with a documented findings and plan of care. Patient was seen and examined.
[2018-03-09] MEDS: POLYETHYLENE GLYCOL 3350 17 GM POWD.PACK PO SCH (13:06)
[2018-03-09 22:16] VITALS: RESP 18
[2018-03-10] MEDS: RYTARY PO SCH ×4 (03:11→15:32)
[2018-03-10] MEDS: clonazePAM 0.5 MG TAB PO PRN (07:00)
[2018-03-10] MEDS ORDERED: PANTOPRAZOLE 40 MG TABLET PO SCH (07:30)
--- NOTE | 2018-03-10 08:50 | P.DS ---
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 History of left breast cancer status post lumpectomy she was recently discharged from hospital on 02/22/2018 for chest pain, that time she couldn't tolerate the stress test due to nausea which was deferred as an outpatient. Now patient presents because of chest pressure and dyspnea, associated with itching of one-day duration associated with a feeling of swelling in the back of her throat as per her airways going to close up, this happened 1 day after she was a started on medication because she was not moving her bowel that starts with see IT as per patient, family brought this medication and it is ( methylcellulose) laxative on fiber therapy. Patient is been instructed she is ALLERGIC to this medication and advised against using it again and she verbalized understanding and acceptance with this recommendation, patient has been evaluated by clasp machine operator On admission patient has hypertensive emergency with systolic blood pressure was at 226. Patient was started on losartan 50 g twice daily and triamterene/ HCTZ as per cardiology recommendation. Her blood pressure was labile in the beginning but is more controlled over the last 24 hours and systolic blood pressure between 120s and 140s. TSH and random cortisol levels were within normal limits. Bilateral renal artery duplex was unremarkable for significant stenosis Patient showed interval improvement, and on the day of discharge patient states she is back to her baseline " I feel much better", no more urinary symptoms. Patient is pain more as she was started on diuretic. Her UA was suspicious for UTI with history of frequent urination patient was started on Keflex. Her Parkinson symptoms and tremor looks control and better on discharge. Patient denies any more symptoms like no chest pain, no dyspnea. Problem and management plan were discussed with the patient and she verbalized understanding and acceptance Patient was cleared by cardiology for discharge. Patient is found stable and can be discharged home however she needs follow-up as an outpatient. Appointment is made with the cardiology office and patient in agreement with the appointments and its timing Discharge exam GENERAL: The patient is alert and oriented x3, not in any acute distress. Well developed, well nourished. HEENT: Pupils are round and equally reacting to light. EOMI. No scleral icterus. No conjunctival pallor. Normocephalic, atraumatic. No pharyngeal erythema. No thyromegaly. CARDIOVASCULAR: S1 and S2 present. No murmurs, rubs, or gallops. PULMONARY: Chest is clear to auscultation, no wheezing or crackles. ABDOMEN: Soft, nontender, nondistended, normoactive bowel sounds. No palpable organomegaly. MUSCULOSKELETAL: No joint swelling or deformity. EXTREMITIES: No cyanosis, clubbing, or pedal edema. NEUROLOGICAL: Gross neurological examination did not reveal any focal deficits. SKIN: No rashes. Time spent more than 35 minutes Plan - Discharge Summary Discharge Rx Participant: No New Discharge Prescriptions: No Action RX: Aspirin EC [Ecotrin Low Dose] 81 mg PO DAILY RX: clonazePAM [KlonoPIN] 0.5 mg PO TID PRN PRN Reason: Anxiety RX: Metoprolol Tartrate [Lopressor] 12.5 mg PO BID RX: Polyethylene Glycol 3350 [Miralax] 17 gm PO DAILY PRN PRN Reason: Diarrhea RX: Carbidopa/Levodopa [Rytary ER 48.75 mg-195 mg Cap] 2 cap PO 5XD RX: Ergocalciferol (Vitamin D2) [Vitamin D2] 50,000 unit PO MO RX: Nitroglycerin Sl Tabs [Nitrostat] 0.4 mg SUBLINGUAL Q5M PRN #25 tab PRN Reason: Chest Pain Discharge Medication List RX: Aspirin EC [Ecotrin Low Dose] 81 mg PO DAILY 06/27/17 [History] RX: Metoprolol Tartrate [Lopressor] 12.5 mg PO BID 06/27/17 [History] RX: clonazePAM [KlonoPIN] 0.5 mg PO TID PRN 06/27/17 [History] RX: Carbidopa/Levodopa [Rytary ER 48.75 mg-195 mg Cap] 2 cap PO 5XD 02/22/18 [ History] RX: Ergocalciferol (Vitamin D2) [Vitamin D2] 50,000 unit PO MO 02/22/18 [History ] RX: Polyethylene Glycol 3350 [Miralax] 17 gm PO DAILY PRN 02/22/18 [History] RX: Nitroglycerin Sl Tabs [Nitrostat] 0.4 mg SUBLINGUAL Q5M PRN #25 tab [Rx] Follow up Appointment(s)/Referral(s): Manish Rascon MD [STAFF PHYSICIAN] - 2 Weeks (Family requesting to make follow up appointment.) Valentin Lugo MD [Primary Care Provider] - 1-2 Days (Please call your Doctor to schedule an appointment and to be seen at home. ) Patient Instructions/Handouts: Hypertension (DC) Activity/Diet/Wound Care/Special Instructions: Continue with cardiac diet Activity as tolerated
[2018-03-10] MEDS: PSYLLIUM HUSK 100% 6 GM PACKET PO SCH (09:04)
[2018-03-10] MEDS: POLYETHYLENE GLYCOL 3350 17 GM POWD.PACK PO SCH (09:06)
[2018-03-10] MEDS: HEPARIN SODIUM,PORCINE 5,000 UNIT/ML 1 ML VIAL SQ SCH (09:06)
[2018-03-10] MEDS: ASPIRIN 81 MG PO SCH (09:07)
[2018-03-10] MEDS: TRIAMTERENE-HCTZ 37.5-25MG 1 EACH CAP PO SCH (09:07)
[2018-03-10] MEDS: CEPHALEXIN 500 MG CAP PO SCH (09:07)
[2018-03-10] MEDS: METOPROLOL TARTRATE 12.5 MG TAB PO SCH (09:07)
[2018-03-10] MEDS: LOSARTAN 50 MG TAB PO SCH (09:08)
[2018-03-10 15:05] VITALS: PULSE 60
[2018-03-10 15:10] VITALS: BP 128/80; TEMP 96.4
--- NOTE | 2018-03-10 15:26 | P.PN ---
Subjective Progress Note Date: 03/10/18 Mrs. Chaney is a pleasant 77-year-old female past medical history significant for coronary artery disease s/p angioplasty proximal and mid RCA 2016, hypertension, dyslipdemia and parkinsons disease. She follows with Dr. Rascon in the office. We have been asked to see her in consultation for chest pain. She states she saw Dr. Rascon in the office on and he recommended Citricel for assistance in moving her bowels. She took 2 doses Thursday and 2 more on Thursday. Thursday night she ate some cheerios and milk then started feeling a burning sensation in the epigastric region. She felt a pain in her upper abdomen from the right left side radiating back and forth with associated nausea. She states she also developed subsequent rash. She denies associated shortness of breath, palpitations, dizziness, vomiting or diaphoresis. She said after she felt a burning sensation and she started feeling very flushed in her chest. She looked in the mirror and she had a lot of redness in the anterior chest up into her neck. She denies pain in the arms, back, neck or jaw. She complains of weight loss over the previous 3-4 months. She states she is consistently constipated although she takes MiraLAX and stool softeners daily. Patient was also noted to have a significantly elevated blood pressure on presentation here and adjustments have been made to her medications. According to the patient, Dr. Simons had recently reduced her Cozaar because of hypotension in the office. Blood pressure this morning 148/60 with a heart rate 50's. She feels well overall,, states she didn't sleep well last night because of her tremors from her Parkinson's. Patient did go down this morning for her renal artery duplex which is yet pending. 03/09/2018 Patient seen and examined this morning, quite nauseated after coming out of the shower, no emesis. Blood pressure 136/60, 138/60,112/5-. She did have an episode through the night where the pressure went up however we will keep her medications as they are right now, because patient does have some labile blood pressures secondary to her Parkinson's. From our perspective she may be able to be discharged once cleared by primary and we will make her a follow-up appointment to see Dr. Simons in the office post discharge. 03/10/2018 Patient was seen and examined this morning, no further nausea. Blood pressure remaining stable. From our perspective she should be able to be discharged home today to follow-up with Dr. Simons in the office post discharge. Objective - Vital Signs Vital signs: Vital Signs Temp 96.4 F L 03/10/18 12:00 Pulse 60 03/10/18 12:00 Resp 18 03/10/18 12:00 BP 128/80 03/10/18 12:00 Pulse Ox 96 03/10/18 12:00 Intake & Output 03/09/18 03/10/18 03/10/18 18:59 06:59 18:59 Intake Total 330 100 Output Total 1 Balance 329 100 Weight 57.4 kg Intake: Oral 330 100 Output: Emesis 1 Other: Voiding Method Toilet Toilet Toilet # Voids 1 1 1 # Bowel Movements 1 - Exam PHYSICAL EXAMINATION: GENERAL: This is a 77-year-old female in no apparent distress at the time of my examination HEENT: Head is atraumatic, normocephalic. Pupils equal, round. Sclera anicteric. Conjunctiva are clear. Mucous membranes of the mouth are moist. Neck is supple. There is no elevated jugular venous pressure.] bruit is heard. HEART EXAMINATION: Heart S1 and S2 systolic ejection murmur is heard. CHEST EXAMINATION: Lungs are clear to auscultation and precussion. No chest wall tenderness is noted on palpation or with deep breathing. ABDOMEN: Soft, nontender. Bowel sounds are heard. No organomegaly noted. EXTREMITIES: 2+ peripheral pulses with no evidence of peripheral edema and no calf tenderness noted. NEUROLOGIC patient is awake, alert and oriented -3. . - Labs CBC & Chem 7: 03/07/18 04:08 03/07/18 04:08 Assessment and Plan Plan: ASSESSMENT and plan 1. Chest pain, atypical for an acute coronary event. 2. History of coronary artery disease status post angioplasty of the RCA September 2016 3. Hypertensive emergency 4. Dyslipidemia 5. Parkinson's Plan From cardiology's perspective, we will continue the patient on the current medication she is on at this time. She may be able to be discharged once cleared by primary and we will make her a follow-up appointment to see Dr. Simons in the office post discharge. DNP note has been reviewed, I agree with a documented findings and plan of care. Patient was seen and examined.
== END 2018-03-10 16:07 | disposition home or self-care (01) ==
LOC: EC 03:38 → 3SUR 05:06 → 6SEL 10:50
PROVIDERS: ADMIT Hospitalist; ATTEND Hospitalist
DX: R07.89 Other chest pain (principal); I16.1 Hypertensive emergency; J39.2 Other diseases of pharynx; L29.9 Pruritus, unspecified; T47.4X5A Adverse effect of other laxatives, initial encounter; K58.1 Irritable bowel syndrome with constipation; I25.110 Atherosclerotic heart disease of native coronary artery with unstable angina pectoris; Z95.5 Presence of coronary angioplasty implant and graft; M15.9 Polyosteoarthritis, unspecified; E78.5 Hyperlipidemia, unspecified; G20 Parkinson's disease; I69.354 Hemiplegia and hemiparesis following cerebral infarction affecting left non-dominant side; I10 Essential (primary) hypertension; G62.9 Polyneuropathy, unspecified; M54.9 Dorsalgia, unspecified; G89.29 Other chronic pain; R35.0 Frequency of micturition; R20.8 Other disturbances of skin sensation; R11.0 Nausea; R10.10 Upper abdominal pain, unspecified; R63.4 Abnormal weight loss; M50.20 Other cervical disc displacement, unspecified cervical region; M54.42 Lumbago with sciatica, left side; M54.41 Lumbago with sciatica, right side; E53.8 Deficiency of other specified B group vitamins; E55.9 Vitamin D deficiency, unspecified; M19.91 Primary osteoarthritis, unspecified site; F41.9 Anxiety disorder, unspecified; R42 Dizziness and giddiness; R21 Rash and other nonspecific skin eruption; Z79.82 Long term (current) use of aspirin; Z79.899 Other long term (current) drug therapy; Z88.1 Allergy status to other antibiotic agents; Z91.040 Latex allergy status; Z88.5 Allergy status to narcotic agent; Z88.8 Allergy status to other drugs, medicaments and biological substances; Z91.018 Allergy to other foods; Z91.048 Other nonmedicinal substance allergy status; Z85.828 Personal history of other malignant neoplasm of skin; Z87.11 Personal history of peptic ulcer disease; Z87.440 Personal history of urinary (tract) infections; Z87.891 Personal history of nicotine dependence; Z85.3 Personal history of malignant neoplasm of breast; Z82.49 Family history of ischemic heart disease and other diseases of the circulatory system; Z80.42 Family history of malignant neoplasm of prostate; Z80.51 Family history of malignant neoplasm of kidney; Z80.1 Family history of malignant neoplasm of trachea, bronchus and lung; Z80.0 Family history of malignant neoplasm of digestive organs; Z84.89 Family history of other specified conditions
CPT/HCPCS: 96376 ×2; 96365 ×2; 99291 ×2; 96366; 96372 ×2; 96375; 36415; 93005; 97162; 97165; 80061; 80053; 84443; 82533; 82550; 82553; 83735; 84484; 85025; 85610; 85730; 71046; 93975; G0378 ×5; J1644 ×4; J2405; C9113

== ENCOUNTER → 2018-04-01 | Outpatient (CLI) | payer MEDICARE, BC ==
--- NOTE | 2018-04-01 12:07 | FL ---
EXAMINATION TYPE: FL barium swallow w video DATE OF EXAM: 04/01/2018 MODIFIED SWALLOW / DEGLUTITION STUDY CLINICAL HISTORY: Dysphagia. Parkinson's. History of esophageal web. TECHNIQUE: Deglutition study is performed utilizing thin liquid barium, honey and nectar thick liqui d barium and barium thick pudding. 1.21 minutes of fluoroscopy time was utilized. 0 fluoroscopic imag es were saved as this was video recorded. COMPARISON: 10/11/2015. FINDINGS: The oral and pharyngeal phases show satisfactory initiation and propagation with all modali ties tested. Normal mastication is seen with solid modalities tested. The previously seen esophagea l and is not reproduced on today's examination. No evidence of upper esophageal stricture. There is n o evidence of penetration or aspiration with any modality tested. Small amount of pharyngeal and vall ecular residue was appreciated with thicker consistencies including the nectar thick barium and bariu m thick pudding. IMPRESSION: No evidence of laryngeal penetration, aspiration, or upper esophageal stricture. The prev iously seen cervical esophageal web is not reproduced on today's examination. Small amount of pharyng eal and vallecular residue. Otherwise unremarkable exam. Please refer to speech therapist notes for f urther details if necessary.
== END | disposition home or self-care (01) ==
LOC: RADFLMAIN 11:23
PROVIDERS: ATTEND Family Medicine
DX: Q39.4 Esophageal web (principal); R53.81 Other malaise; J31.0 Chronic rhinitis; E53.8 Deficiency of other specified B group vitamins; G20 Parkinson's disease; R13.10 Dysphagia, unspecified; D05.12 Intraductal carcinoma in situ of left breast; R26.9 Unspecified abnormalities of gait and mobility
CPT/HCPCS: 74230

== ENCOUNTER 2018-12-22 05:54 | Observation (INO) | payer MEDICARE, BC ==
[2018-12-22 06:43] LABS: Basophils % (A) 1 %; Eosinophils # (A) 0.2 k/uL (0-0.7); Eosinophils % (A) 5 %; HCT 35.1 % (34.0-46.0); HGB 11.7 gm/dL (11.4-16.0); Lymphocytes # (A) 1.1 k/uL (1.0-4.8); Lymphocytes % (A) 32 %; MCH 28.1 pg (25.0-35.0); MCHC 33.4 g/dL (31.0-37.0); MCV 84.2 fL (80.0-100.0); Monocytes # (A) 0.2 k/uL (0-1.0); Monocytes % (A) 5 %; Neutrophils % (A) 57 %; Platelet Count 255 k/uL (150-450); RBC 4.17 m/uL (3.80-5.40); RDW 14.3 % (11.5-15.5); WBC 3.6 k/uL (3.8-10.6)
[2018-12-22 06:52] LABS: Anion Gap 7 mmol/L; Blood Urea Nitrogen 23 mg/dL (7-17); Calcium 9.3 mg/dL (8.4-10.2); Carbon Dioxide 30 mmol/L (22-30); Chloride 104 mmol/L (98-107); Glucose 91 mg/dL (74-99); Potassium 4.3 mmol/L (3.5-5.1); Sodium 141 mmol/L (137-145)
[2018-12-22 06:54] LABS: Prothrombin Time 10.4 sec (9.0-12.0)
--- NOTE | 2018-12-22 07:06 | XR ---
EXAM: XR Chest, 1 View. CLINICAL HISTORY: Reason: Pain TECHNIQUE: Frontal view of the chest. COMPARISON: 03/07/18. FINDINGS: Lungs: Normal lung volumes. Mild pulmonary vascular congestion. No evidence of airspace consolidation. Pleural spaces: Slight blunting of the costophrenic angles may be due to small pleural effusions. No pneumothorax. Heart: Heart size top normal. Mediastinum: No mediastinal widening or shift. Bones: No acute osseous abnormality. IMPRESSION: No evidence of airspace consolidation. Probable mild pulmonary vascular congestion and small bilateral pleural effusions.
[2018-12-22] MEDS ORDERED: ASPIRIN 81 MG PO STA (07:14)
[2018-12-22] MEDS ORDERED: NITROGLYCERIN OINT 1 INCH/GM PACKET TOPICAL STA (07:14)
--- NOTE | 2018-12-22 07:19 | ED ---
General Adult HPI - General Chief complaint: Chest Pain Stated complaint: Chest Pain Time Seen by Provider: 12/22/18 07:00 Source: patient, EMS, RN notes reviewed Mode of arrival: EMS Limitations: no limitations, physical limitation - History of Present Illness Initial comments: This is a 78-year-old female presents emergency Department complaining of chest pain that woke up at about 3:30 in morning. Patient states the pain lasts for about 20 minutes. Patient states he was very similar to her heart attack pain that she's had in the past but it was actually worse this time. Patient states it radiated down both arms. Patient states she also was short of breath diaphoretic and very nauseated. Patient states currently she has no symptoms. Patient denies any palpitations. Patient denies any recent fever chills or cough. Patient denies any lightheadedness dizziness or near syncopal episode. Patient denies any abdominal pain patient denies any vomiting or diarrhea. Patient denies any leg swelling or calf tenderness. Patient denies any recent injury or trauma. Patient denies headache patient denies any numbness or focal weakness - Related Data Home Medications Medication Instructions Recorded Confirmed Aspirin EC [Ecotrin Low Dose] 81 mg PO DAILY 06/27/17 12/22/18 Metoprolol Tartrate [Lopressor] 12.5 mg PO BID 06/27/17 12/22/18 clonazePAM [KlonoPIN] 0.5 mg PO TID PRN 06/27/17 12/22/18 Carbidopa/Levodopa [Rytary ER 2 cap PO 5XD 02/22/18 12/22/18 48.75 mg-195 mg Cap] Polyethylene Glycol 3350 [Miralax] 17 gm PO DAILY PRN 02/22/18 12/22/18 Previous Rx's Medication Instructions Recorded Nitroglycerin Sl Tabs [Nitrostat] 0.4 mg SUBLINGUAL Q5M PRN #25 tab 02/23/18 Pantoprazole [Protonix] 40 mg PO AC-BRKFST #30 tablet. 03/10/18 Allergies Allergy/AdvReac Type Severity Reaction Status Date / Time codeine Allergy Severe RASH/VIRA Verified 12/22/18 07:22 adhesive Allergy Unknown Verified 12/22/18 07:22 clarithromycin [From Biaxin] Allergy Unknown Verified 12/22/18 07:22 kiwi Allergy Unknown Verified 12/22/18 07:22 latex Allergy Unknown Verified 12/22/18 07:22 levofloxacin [From Levaquin] Allergy Rash/Hives Verified 12/22/18 07:22 morphine Allergy Unknown Verified 12/22/18 07:22 nifedipine [From Procardia] Allergy Unknown Verified 12/22/18 07:22 amantadine AdvReac SHAKINESS Verified 12/22/18 07:22 methylcellulose Allergy Dyspnea Uncoded 12/22/18 07:22 Review of Systems ROS Statement: Those systems with pertinent positive or pertinent negative responses have been documented in the HPI. ROS Other: All systems not noted in ROS Statement are negative. Past Medical History Past Medical History: Coronary Artery Disease (CAD), Cancer, Chest Pain / Angina, CVA/TIA, Hypertension, Myocardial Infarction (MS), Musculoskeletal Disorder, Neurologic Disorder, Osteoarthritis (OA), Renal Disease Additional Past Medical History / Comment(s): Parkinson's disease with bilateral feet neuropathy, CVA with slight L sided weakness, cardiac murmur, "leaky heart valves", herniated cervical discx with cervical pain, back pain with bilateral sciatica, L shoulder cuff tear and joint is frozen, L breast cancer with lumpectomy, R nares skin cancer removal, cyst on L kidney, mild kidney dysfunction, UTIs, PUD, IBS, benign colon polyp, vitamin B12 and D deficiency, anemia, L leg varicosities, migraines many years ago, occasional tinnitis bilaterally, R ear pain and had MRI recently, past L leg and L ankle fractures. Last Myocardial Infarction Date:: 2016 History of Any Multi-Drug Resistant Organisms: None Reported Past Surgical History: Adenoidectomy, Appendectomy, Bladder Surgery, Breast Surgery, Section, Cholecystectomy, Heart Catheterization, Heart Catheterization With Stent, Hysterectomy, Orthopedic Surgery, Tonsillectomy Additional Past Surgical History / Comment(s): 2017 PCI with stent to RCA, L breast lumpectomy, bilateral cataract removals with lens implants, L knee arthroscopy, L foot neuroma removed, R nares skin cancer removal, bladder suspension, sinus surgery, colonoscopy/benign polypectomy, angiogram. Past Anesthesia/Blood Transfusion Reactions: No Reported Reaction Date of Last Stent Placement:: 2016 Past Psychological History: Anxiety Additional Psychological History / Comment(s): Pt resides with her spouse who has numerous health problems. Pt's sister, Ava is very helpful to them. She comes to their home on a daily basis and does housekeeping and shopping for them. Sister drives pt to her appts. Pt has a cane and a walker and wheelchair and hospital bed, she uses the walker the most. She manages her own medications. Smoking Status: Never smoker Past Alcohol Use History: None Reported Additional Past Alcohol Use History / Comment(s): Patient smoked only as a teenager. No medical marijuana, marijuana, street drug or alcohol use. Past Drug Use History: None Reported - Past Family History Mother Additional Family Medical History / Comment(s): Mother at age 85 with history of coronary artery disease status post CABG and hypertension. Brother(s) Additional Family Medical History / Comment(s): Patient has a brother who from prostate cancer. Sister(s) Additional Family Medical History / Comment(s): Patient has lost 2 sisters one to pancreatic cancer and one to lung cancer. Son(s) Additional Family Medical History / Comment(s): She has had one son from brain tumor. Father Family Medical History: Cancer Additional Family Medical History / Comment(s): Father at age 56 from kidney cancer. General Exam - General Exam Comments Initial Comments: GENERAL: Patient is well-developed and well-nourished. Patient is nontoxic and well- hydrated and is in no acute distress. ENT: Neck is soft and supple. No significant lymphadenopathy is noted. Oropharynx is clear. Moist mucous membranes. Neck has full range of motion without eliciting any pain. EYES: The sclera were anicteric and conjunctiva were pink and moist. Extraocular movements were intact and pupils were equal round and reactive to light. Eyelids were unremarkable. PULMONARY: Unlabored respirations. Good breath sounds bilaterally. No audible rales rhonchi or wheezing was noted. CARDIOVASCULAR: There is a regular rate and rhythm without any murmurs gallops or rubs. ABDOMEN: Soft and nontender with normal bowel sounds. No palpable organomegaly was noted. There is no palpable pulsatile mass. SKIN: Skin is clear with no lesions or rashes and otherwise unremarkable. NEUROLOGIC: Patient is alert and oriented x3. Cranial nerves II through XII are grossly intact. Motor and sensory are also intact. Normal speech, volume and content. Symmetrical smile. MUSCULOSKELETAL: Normal extremities with adequate strength and full range of motion. LYMPHATICS: No significant lymphadenopathy is noted PSYCHIATRIC: Normal psychiatric evaluation. Limitations: no limitations, physical limitation Course Vital Signs 12/22/18 12/22/18 06:08 07:35 Temperature 98.1 F Pulse Rate 70 61 Respiratory 16 18 Rate Blood Pressure 221/98 199/77 O2 Sat by Pulse 100 98 Oximetry Medical Decision Making - Medical Decision Making EKG shows sinus rhythm at 70 bpm QRS is 94 Q-T intervals 44 QTC is 436. ND interval is 110. EKG shows no ST segment elevation or depression. Chest x-ray shows possible mild pulmonary congestion. Patient was given heparin because the unstable angina picture. I spoke with some physicians and admitted the patient accepted the admission I wrote admitting orders and consult cardiology continued heparin and aspirin and Nitropaste on the floor. - Lab Data Result diagrams: 12/22/18 06:21 12/22/18 06:21 Lab Results 12/22/18 12/22/18 12/22/18 Range/Units 06:21 06:21 06:21 WBC (3.8-10.6) k/uL RBC (3.80-5.40) m/uL Hgb (11.4-16.0) gm/dL Hct (34.0-46.0) % MCV (80.0-100.0) fL MCH (25.0-35.0) pg MCHC (31.0-37.0) g/dL RDW (11.5-15.5) % Plt Count (150-450) k/uL Neutrophils % % Lymphocytes % % Monocytes % % Eosinophils % % Basophils % % Neutrophils # (1.3-7.7) k/uL Lymphocytes # (1.0-4.8) k/uL Monocytes # (0-1.0) k/uL Eosinophils # (0-0.7) k/uL Basophils # (0-0.2) k/uL PT 10.4 (9.0-12.0) sec INR 1.0 (<1.2) APTT (22.0-30.0) sec Sodium 141 (137-145) mmol/L Potassium 4.3 (3.5-5.1) mmol/L Chloride 104 (98-107) mmol/L Carbon Dioxide 30 (22-30) mmol/L Anion Gap 7 mmol/L BUN 23 H (7-17) mg/dL Creatinine 0.56 (0.52-1.04) mg/dL Est GFR (CKD-EPI)AfAm >90 (>60 ml/min/1.73 sqM) Est GFR (CKD-EPI)NonAf >90 (>60 ml/min/1.73 sqM) Glucose 91 (74-99) mg/dL Calcium 9.3 (8.4-10.2) mg/dL Troponin I <0.012 (0.000-0.034) ng/mL 12/22/18 12/22/18 Range/Units 06:21 06:21 WBC 3.6 L (3.8-10.6) k/uL RBC 4.17 (3.80-5.40) m/uL Hgb 11.7 (11.4-16.0) gm/dL Hct 35.1 (34.0-46.0) % MCV 84.2 (80.0-100.0) fL MCH 28.1 (25.0-35.0) pg MCHC 33.4 (31.0-37.0) g/dL RDW 14.3 (11.5-15.5) % Plt Count 255 (150-450) k/uL Neutrophils % 57 % Lymphocytes % 32 % Monocytes % 5 % Eosinophils % 5 % Basophils % 1 % Neutrophils # 2.0 (1.3-7.7) k/uL Lymphocytes # 1.1 (1.0-4.8) k/uL Monocytes # 0.2 (0-1.0) k/uL Eosinophils # 0.2 (0-0.7) k/uL Basophils # 0.0 (0-0.2) k/uL PT (9.0-12.0) sec INR (<1.2) APTT 26.4 (22.0-30.0) sec Sodium (137-145) mmol/L Potassium (3.5-5.1) mmol/L Chloride (98-107) mmol/L Carbon Dioxide (22-30) mmol/L Anion Gap mmol/L BUN (7-17) mg/dL Creatinine (0.52-1.04) mg/dL Est GFR (CKD-EPI)AfAm (>60 ml/min/1.73 sqM) Est GFR (CKD-EPI)NonAf (>60 ml/min/1.73 sqM) Glucose (74-99) mg/dL Calcium (8.4-10.2) mg/dL Troponin I (0.000-0.034) ng/mL Critical Care Time Critical Care Time: Yes Total Critical Care Time: 35 Disposition Clinical Impression: Unstable angina pectoris Disposition: ADMITTED IP TO THIS HOSP Referrals: Valentin Lugo MD [Primary Care Provider] - 1-2 days Time of Disposition: 08:03
[2018-12-22] MEDS ORDERED: LABETALOL SYRINGE 5 MG/ML IVP STA ×2 (07:44→08:34)
[2018-12-22] MEDS ORDERED: HEPARIN SODIUM,PORCINE 5,000 UNIT/ML 1 ML VIAL IV ONE (08:00)
[2018-12-22] MEDS ORDERED: NITROGLYCERIN SL TABS 0.4 MG TAB SUBLINGUAL PRN (08:04)
[2018-12-22] MEDS: HEPARIN SOD,PORK IN 0.45% NACL 25,000 UNIT in 0.45% NACL 1 250ML.BAG IV SCH (08:55)
[2018-12-22] MEDS: clonazePAM 0.5 MG TAB PO PRN ×2 (10:41→20:37)
[2018-12-22] MEDS: PANTOPRAZOLE 40 MG TABLET PO SCH ×2 (10:41→10:42)
[2018-12-22] MEDS: METOPROLOL TARTRATE 12.5 MG TAB PO SCH (10:42)
[2018-12-22] MEDS: LEVODOPA PO SCH ×3 (13:36→23:26)
[2018-12-22] MEDS: CARBIDOPA PO SCH ×3 (13:36→23:26)
[2018-12-22] MEDS: NITROGLYCERIN OINT 1 INCH/GM PACKET TOPICAL SCH ×3 (13:37→23:26)
[2018-12-22] MEDS: hydrALAZINE HCL 25 MG TAB PO SCH ×2 (14:15→23:26)
--- NOTE | 2018-12-22 14:36 | P.HPIM ---
History of Present Illness H&P Date: 12/22/18 Chief Complaint: Chest pain 78-year-old female with PMH of Parkinson's disorder, history of TIA with left- sided residual weakness, CAD status post stent placed by Dr. Simons approximately 2 years ago, hypertension presents to the ED for chest pain. Patient reports that the chest pain began at 3 AM. Patient states that she was not asleep, she was restless due to her restless leg syndrome. Pain was described as chest tightness and constant in nature. Pain was 10 out of 10 in severity. Pain was radiating to the back and to the bilateral arms. Patient reports taking her blood pressure and had an SBP greater than 200. Her chest pain was associated with palpitations, nausea and sweating. Patient reports taking 2 aspirin and sitting up in a chair which did not help alleviate her symptoms. She then took Nitrostat tablet which helped after 20 minutes. Patient also reports lower extremity cramping has been ongoing for the last couple of months. Patient reports having a labile blood pressure that dropped very quickly. She is currently on metoprolol and has had syncopal episodes when taking losartan. Patient denies any headaches, lower extremity edema, nausea, vomiting, fever, chills, cough, changes in urination or bowel habits. Patient does report an un specified amount of weight loss over the past 2 months without a change in her appetite. She denies smoking cigarettes or drinking alcohol. In the ED, CBC and CMP were unremarkable except for a BUNs of 23. Troponin was less than 0.012, EKG showing sinus rhythm with T-wave inversions. Chest x-ray was negative for acute process. Patient was noted to have an SBP greater than 200 in the ED, given IV labetalol. Patient is admitted for chest pain, rule out acute coronary syndrome, cardiology on consult, IV heparin started. Review of Systems All pertinent positive review of systems is seen in the HPI. All other review of systems have been reviewed and negative. All systems: negative Past Medical History Past Medical History: Coronary Artery Disease (CAD), Cancer, Chest Pain / Angina, CVA/TIA, Hypertension, Myocardial Infarction (PR), Musculoskeletal Disorder, Neurologic Disorder, Osteoarthritis (OA), Renal Disease Additional Past Medical History / Comment(s): Parkinson's disease with bilateral feet neuropathy, CVA with slight L sided weakness, cardiac murmur, "leaky heart valves", herniated cervical discx with cervical pain, back pain with bilateral sciatica, L shoulder cuff tear and joint is frozen, L breast cancer with lumpectomy, R and L nares skin cancer removal, cyst on L kidney, mild kidney dysfunction, UTIs, PUD, IBS, benign colon polyp, vitamin B12 and D deficiency, anemia, L leg varicosities, migraines many years ago, , R ear pain and had MRI recently, past L leg and L ankle fractures. "R carotid plugged" Last Myocardial Infarction Date:: 2017 History of Any Multi-Drug Resistant Organisms: None Reported Past Surgical History: Adenoidectomy, Appendectomy, Bladder Surgery, Breast Surgery, Section, Cholecystectomy, Heart Catheterization, Heart Catheterization With Stent, Hysterectomy, Orthopedic Surgery, Tonsillectomy Additional Past Surgical History / Comment(s): 2017 PCI with stent to RCA, L breast lumpectomy, bilateral cataract removals with lens implants, L knee arthroscopy, L foot neuroma removed, R nares skin cancer removal, bladder suspension, sinus surgery, colonoscopy/benign polypectomy, angiogram. Past Anesthesia/Blood Transfusion Reactions: No Reported Reaction Date of Last Stent Placement:: 2017 Past Psychological History: Anxiety Additional Psychological History / Comment(s): Pt resides with her spouse who has numerous health problems. Pt's sister, Ava is very helpful to them. She comes to their home on a daily basis and does housekeeping and shopping for them. Sister drives pt to her appts. Pt has a cane and a walker and wheelchair and hospital bed, she uses the walker the most. She manages her own medications. Smoking Status: Never smoker Past Alcohol Use History: None Reported Additional Past Alcohol Use History / Comment(s): Patient smoked only as a teenager. No medical marijuana, marijuana, street drug or alcohol use. Past Drug Use History: None Reported - Past Family History Mother Additional Family Medical History / Comment(s): Mother at age 85 with history of coronary artery disease status post CABG and hypertension. Brother(s) Additional Family Medical History / Comment(s): Patient has a brother who from prostate cancer. Sister(s) Additional Family Medical History / Comment(s): Patient has lost 2 sisters one to pancreatic cancer and one to lung cancer. Son(s) Additional Family Medical History / Comment(s): She has had one son from brain tumor. Father Family Medical History: Cancer Additional Family Medical History / Comment(s): Father at age 56 from kidney cancer. Medications and Allergies Home Medications Medication Instructions Recorded Confirmed Type Aspirin EC [Ecotrin Low Dose] 81 mg PO DAILY 06/27/17 12/22/18 History Metoprolol Tartrate [Lopressor] 12.5 mg PO BID 06/27/17 12/22/18 History clonazePAM [KlonoPIN] 0.5 mg PO TID PRN 06/27/17 12/22/18 History Carbidopa/Levodopa [Rytary ER 2 cap PO 5XD 02/22/18 12/22/18 History 48.75 mg-195 mg Cap] Polyethylene Glycol 3350 [Miralax] 17 gm PO DAILY PRN 02/22/18 12/22/18 History Nitroglycerin Sl Tabs [Nitrostat] 0.4 mg SUBLINGUAL Q5M PRN #25 tab 02/23/18 12/22/18 Rx Pantoprazole [Protonix] 40 mg PO AC-BRKFST #30 tablet. 03/10/18 12/22/18 Rx Allergies Allergy/AdvReac Type Severity Reaction Status Date / Time codeine Allergy Severe RASH/VIRA Verified 12/22/18 07:22 adhesive Allergy Unknown Verified 12/22/18 07:22 clarithromycin [From Biaxin] Allergy Unknown Verified 12/22/18 07:22 kiwi Allergy Unknown Verified 12/22/18 07:22 latex Allergy Unknown Verified 12/22/18 07:22 levofloxacin [From Levaquin] Allergy Rash/Hives Verified 12/22/18 07:22 morphine Allergy Unknown Verified 12/22/18 07:22 nifedipine [From Procardia] Allergy Unknown Verified 12/22/18 07:22 amantadine AdvReac SHAKINESS Verified 12/22/18 07:22 methylcellulose Allergy Dyspnea Uncoded 12/22/18 07:22 Physical Exam Vitals: Vital Signs Temp Pulse Pulse Resp BP BP Pulse Ox 12/22/18 12:57 98.4 F 68 18 216/76 99 12/22/18 12:50 98.1 F 67 18 175/66 97 12/22/18 12:21 67 18 175/66 97 12/22/18 12:00 68 18 12/22/18 10:46 75 16 182/67 98 12/22/18 10:09 183/66 12/22/18 08:23 64 18 194/76 98 12/22/18 07:35 61 18 199/77 98 12/22/18 06:08 98.1 F 70 16 221/98 100 Intake and Output 12/21/18 12/22/18 12/22/18 22:59 06:59 14:59 Other: Voiding Method Toilet # Voids 1 Weight 53.977 kg General: [non toxic], [no distress], [underweight] Derm: [warm], [dry] Head: [atraumatic], [normocephalic], [symmetric] Eyes: [EOMI], [no lid lag], [anicteric sclera] Mouth: [no lip lesion], [mucus membranes moist] Cardiovascular: [S1S2 reg], [systolic murmur], [positive DP pulse bilateral] Lungs: [CTA bilateral], [no rhonchi, no rales] , [no accessory muscle use] Abdominal: [soft], [ nontender to palpation], [no guarding], [no appreciable organomegaly] Ext: [no gross muscle atrophy], [no edema], [no contractures] Neuro: [ CN II-XI grossly intact], [no focal neuro deficits] Psych: [Alert], [oriented], [appropriate affect] Results CBC & Chem 7: 12/22/18 06:21 12/22/18 06:21 Labs: Abnormal Lab Results - Last 24 Hours (Table) 12/22/18 12/22/18 Range/Units 06:21 06:21 WBC 3.6 L (3.8-10.6) k/uL BUN 23 H (7-17) mg/dL Thrombosis Risk Factor Assmnt - Choose All That Apply Any of the Below Risk Factors Present?: No Other Risk Factors: Yes Each Risk Factor Represents 3 Points: Age 75 years or older Thrombosis Risk Factor Assessment Total Risk Factor Score: 3 Thrombosis Risk Factor Assessment Level: Moderate Risk Assessment and Plan Assessment: Assessment and Plan 1. Chest pain 2. Hypertensive urgency 3. Parkinson's disorder 4. Low BMI 5. CAD/history of CVA 1. Likely secondary to hypertensive urgency, rule out acute coronary syndrome. Troponin is less than 0.012, 0.020 with EKG showing sinus rhythm with T-wave inversions. Trend 2 to control/EKG to rule out ACS. Telemetry monitoring. Started on heparin drip. Continue aspirin. Hold statin due to history of complications, will defer decision to cardiology. Continue beta darrin. Follow cardiology recommendations. Follow lipid panel. 2. BP 216/76. Isolated systolic hypertension. Continue metoprolol. Added hydralazine 25 mg by mouth twice a day. Monitor vitals, adjust medications as necessary. Follow cardiology recommendations. 3. Continue carbidopa/levodopa 5 times a day. Follow PT and OT recommendations. 4. BMI 21.8. Will consult dietitian for additional supplementation. Patient is underwent many colonoscopies according to her. She does have a history of breast cancer and underwent 2 lumpectomies. She does have a follow-up according to her coming up this week. Daily weights. 5. Continue aspirin 325 mg by mouth daily. Will defer decision for statin to cardiology. Patient admitted for chest pain, rule out acute coronary syndrome, cardiology on consult. Found to have elevated BP with a SBP greater than 200.
[2018-12-22] MEDS ORDERED: MORPHINE SULFATE 2 MG/ML SYRINGE IV PRN (14:37)
[2018-12-22] MEDS ORDERED: ACETAMINOPHEN TAB 325 MG TAB PO PRN (14:37)
[2018-12-22] MEDS ORDERED: NALOXONE 0.4 MG/ML 1 ML VIAL IV PRN (14:37)
[2018-12-22] MEDS ORDERED: HEPARIN SODIUM,PORCINE 5,000 UNIT/ML 1 ML VIAL IV PRN (15:33)
[2018-12-22 16:02] VITALS: BMI 21.7
[2018-12-22] MEDS ORDERED: hydrALAZINE HCL 20 MG/ML 1 ML VIAL IVP ONE (16:45)
[2018-12-22] MEDS: amLODIPine 10 MG TAB PO SCH (17:12)
[2018-12-22] MEDS: HYDROcodone/APAP 5-325MG 1 EACH TAB PO PRN (20:54)
[2018-12-23] MEDS: LEVODOPA PO SCH ×3 (01:30→12:29)
[2018-12-23] MEDS: CARBIDOPA PO SCH ×3 (01:30→12:29)
[2018-12-23] MEDS: HYDROcodone/APAP 5-325MG 1 EACH TAB PO PRN (02:36)
[2018-12-23] MEDS: NITROGLYCERIN OINT 1 INCH/GM PACKET TOPICAL SCH (04:46)
[2018-12-23 06:29] LABS: Cholesterol 144 mg/dL (<200); HDL Cholesterol 39 mg/dL (40-60); LDL Cholesterol,Calculated 93 mg/dL (0-99); Triglycerides 61 mg/dL (<150)
[2018-12-23 07:58] VITALS: RESP 18
[2018-12-23] MEDS ORDERED: ASPIRIN 325 MG TAB PO SCH (09:00)
[2018-12-23] MEDS: amLODIPine 10 MG TAB PO SCH (10:26)
[2018-12-23] MEDS: hydrALAZINE HCL 25 MG TAB PO SCH (10:26)
[2018-12-23] MEDS: METOPROLOL TARTRATE 12.5 MG TAB PO SCH (10:26)
[2018-12-23] MEDS ORDERED: ISOSORBIDE MONONITRATE ER 30 MG TAB.ER.24H PO SCH (10:45)
--- NOTE | 2018-12-23 10:46 | ECHOF ---
Referral Reason:Chest pain MEASUREMENTS -------- HEIGHT: 157.5 cm WEIGHT: 54.0 kg BP: 216/76 RVIDd: 2.7 cm (< 3.3) IVSd: 1.1 cm (0.6 - 1.1) LVIDd: 3.8 cm (3.9 - 5.3) LVPWd: 1.1 cm (0.6 - 1.1) IVSs: 1.3 cm LVIDs: 2.9 cm LVPWs: 1.4 cm LAESV Index (A-L): 36.33 ml/m Ao Diam: 2.6 cm (2.0 - 3.7) AV Cusp: 1.0 cm (1.5 - 2.6) LA Diam: 3.3 cm (2.7 - 3.8) MV E Royce: 1.53 m/s MV DecT: 296 ms MV A Royce: 1.27 m/s MV E/A Ratio: 1.21 AV maxP.62 mmHg AV meanP.44 mmHg AR PHT: 456 ms RAP: 10.00 mmHg RVSP: 53.13 mmHg FINDINGS -------- Undetermined rhythm. This was a technically good study. The left ventricular size is normal. There is borderline concentric left ventricular hypertrophy. Overall left ventricular systolic function is normal with, an EF between 55 - 60 %. The right ventricle is normal in size and function. LA is moderately dilated 34-39 ml/m2 RA appears enlarged. Aortic valve is trileaflet and is moderately thickened. There is moderate aortic regurgitation. T here is mild aortic stenosis present. Peak/mean gradient across the Aortic Valve is 24.62mmHg / 14. 44mmHg. The mitral valve leaflets are moderately thickened. Moderate mitral annular calcification present. Moderate mitral regurgitation is present. [id number] mitral stenosis. Mild tricuspid regurgitation present. There is mild to moderate pulmonary hypertension. The right ventricular systolic pressure, as measured by Doppler, is 53.13mmHg. Trace/mild (physiologic) pulmonic regurgitation. The aortic root size is normal. Normal inferior vena cava with less than 50% inspiratory collapse consistent with estimated right atr ial pressure of 15 mmHg. There is a trivial pericardial effusion present. CONCLUSIONS -------- 1. Undetermined rhythm. 2. This was a technically good study. 3. The left ventricular size is normal. 4. There is borderline concentric left ventricular hypertrophy. 5. Overall left ventricular systolic function is normal with, an EF between 55 - 60 %. 6. LA is moderately dilated 34-39 ml/m2 7. RA appears enlarged. 8. Aortic valve is trileaflet and is moderately thickened. 9. There is moderate aortic regurgitation. 10. There is mild aortic stenosis present. 11. Peak/mean gradient across the Aortic Valve is 24.62mmHg / 14.44mmHg. 12. The mitral valve leaflets are moderately thickened. 13. Moderate mitral annular calcification present. 14. Moderate mitral regurgitation is present. 15. [id number] mitral stenosis. 16. Mild tricuspid regurgitation present. 17. There is mild to moderate pulmonary hypertension. 18. The right ventricular systolic pressure, as measured by Doppler, is 53.13mmHg. 19. Trace/mild (physiologic) pulmonic regurgitation. 20. The aortic root size is normal. 21. Normal inferior vena cava with less than 50% inspiratory collapse consistent with estimated right atrial pressure of 15 mmHg. 22. There is a trivial pericardial effusion present. [employer] SYSTEM ADMINISTRATOR: Denis Hines RDCS
--- NOTE | 2018-12-23 10:47 | P.PN ---
Subjective Progress Note Date: 12/23/18 Principal diagnosis: Chest pain Patient was seen and examined. No acute events overnight. Patient reports 2 episodes of chest pain overnight, located in the midsternal and epigastric region. She does complain of a history of GERD and difficulty swallowing. She denies any chest pain right now. She denies any shortness of breath or palpitations or dizziness. No nausea or vomiting. No fever or chills. Seen by cardiology, cardiac catheterization recommended. Patient refuses cardiac cath at this time, states that she would like to medically manage. She also reports chronic pain in her joints related to osteoarthritis. Objective - Vital Signs Vital signs: Vital Signs Temp 97.8 F 12/23/18 07:40 Pulse 69 12/23/18 07:40 Resp 18 12/23/18 07:40 BP 124/64 12/23/18 07:40 Pulse Ox 98 12/23/18 07:40 Intake & Output 12/22/18 12/23/18 12/23/18 18:59 06:59 18:59 Intake Total 244.475 100.827 Balance 244.475 100.827 Weight 53.977 kg Intake: Intake, IV Titration 44.475 100.827 Amount Heparin Sod,Pork in 0.45% 44.475 100.827 NaCl 25,000 unit In 0.45 % NaCl 1 250ml.bag @ 12 UNITS/KG/HR 6.477 mls/hr IV .Q24H [facility] Rx#: [id number] Oral 200 Other: Voiding Method Toilet Toilet # Voids 1 1 - Exam General: [non toxic], [no distress], [underweight] Derm: [warm], [dry] Head: [atraumatic], [normocephalic], [symmetric] Eyes: [EOMI], [no lid lag], [anicteric sclera] Mouth: [no lip lesion], [mucus membranes moist] Cardiovascular: [S1S2 reg], [systolic murmur], [positive DP pulse bilateral] Lungs: [CTA bilateral], [no rhonchi, no rales] , [no accessory muscle use] Abdominal: [soft], [ nontender to palpation], [no guarding], [no appreciable organomegaly] Ext: [no gross muscle atrophy], [no edema], [no contractures] Neuro: [no focal neuro deficits] Psych: [Alert], [oriented], [appropriate affect] - Labs CBC & Chem 7: 12/22/18 06:21 12/22/18 06:21 Labs: Abnormal Lab Results - Last 24 Hours (Table) 12/22/18 12/22/18 12/23/18 Range/Units 14:49 22:11 05:44 APTT 35.4 H 80.9 H (22.0-30.0) sec HDL Cholesterol 39 L (40-60) mg/dL 12/23/18 Range/Units 05:44 APTT 45.7 H (22.0-30.0) sec HDL Cholesterol (40-60) mg/dL Assessment and Plan Assessment: Assessment and Plan 1. Chest pain 2. Hypertensive urgency 3. Parkinson's disorder 4. Low BMI 5. CAD/history of CVA 1. Likely secondary to hypertensive urgency, rule out acute coronary syndrome. Troponin is less than 0.012, 0.020, 0.013 with EKG showing sinus rhythm with T- wave inversions. ACS ruled out. Telemetry monitoring. Discontinue heparin drip. Continue aspirin. Hold statin due to history of complications, will defer decision to cardiology. Continue beta darrin. Lipid panel is within normal limits. Follow cardiology recommendations. 2. BP 124/64. Isolated systolic hypertension. Continue metoprolol. Added hydralazine 25 mg by mouth twice a day and amlodipine 5 mg by mouth daily. Monitor vitals, adjust medications as necessary. Follow cardiology recommendations. 3. Continue carbidopa/levodopa 5 times a day. Follow PT and OT recommendations. 4. BMI 21.8. Will consult dietitian for additional supplementation. Patient is underwent many colonoscopies according to her. She does have a history of breast cancer and underwent 2 lumpectomies. She does have a follow-up according to her coming up this week. Daily weights. 5. Continue aspirin 325 mg by mouth daily. Will defer decision for statin to cardiology. Patient admitted for chest pain, ACS ruled out, cardiology on consult.
--- NOTE | 2018-12-23 11:10 | P.CRDCN ---
History of Present Illness History of present illness: This is a pleasant 78-year-old female past medical history significant for coronary artery disease s/p stent placement to RCA in 2017, hypertension, parikinson's disease, aortic stenosis, breast cancer s/p lumpectomy and chronic kidney disease. She follows in the office with Dr. Rascon. We have been asked to see her in consultation for chest pain. She states night before last she went to bed around 2300. She woke up at 0300 with muscle twitches and spasms in her legs and feet. She went to sit in her recliner to try and get some rest but continued to have the muscle spasms and was unable to sleep. Shortly thereafter while sitting in her chair she started having an intense heavy pain in the chest in the mid-sternal region with radiation down both arms with associated nausea, shortness of breath and diaphoresis. She took SL nitrolgycerin x1. Her symptoms improved with nitro and subsided prior to coming to the hospital. Upon arrival her blood pressure was 221/98 and was persistently high despite labeolol administration. She has been started on amlodipine and hydralazine per primary care team. Blood pressure has come down nicely. She had another episode of chest pain last night around 0230 with similar pain and intensity. She was given nitroglycerin and again her symptoms subsided. She is currently chest pain free. She does state the pain is similar type pain as her heart attack in 2017 but this time the pain is much more intense. EKG reveals sinus mechanism heart rate of 70 poor R-wave progression. Chest x-ray reveals mild pulmonary vascular congestion and small bilateral pleural effusions. Laboratory data reviewed, cardiac enzymes negative 3, LDL 93, HDL 39, WBC 3.6, hemoglobin 11.7, platelets 255, sodium 141, potassium 4.3, creatinine 0.56 with a GFR greater than 90. Current cardiac medications include metoprolol 12.5 mg twice a day and aspirin 81 mg daily. Most recent echocardiogram obtained in February 2018 reveals preserved left ventricular systolic function with ejection fraction 60-65%, moderately dilated left atrium, moderate aortic valve sclerosis, mild aortic regurgitation, mild aortic stenosis with a mean gradient of 11 mmHg, severely thickened mitral leaflets, mild to moderate mitral regurgitation and mild tricuspid regurgitation. She underwent cardiac catheterization in September 2016 in the setting of a non-ST elevated myocardial infarction and received stents to the proximal and mid RCA. All other vessels were angiographically normal. At the time of my exam: CONSTITUTIONAL: Denies fever. Denies chills. EYES: Denies blurred vision. Denies vision changes. Denies eye pain. EARS, NOSE, MOUTH & THROAT: Denies headache. Denies sore throat. Denies ear pain. CARDIOVASCULAR: Denies chest pain. Denies shortness of breath. Denies orthopnea. Denies PND. Denies palpitations. RESPIRATORY: Denies cough. GASTROINTESTINAL: Denies abdominal pain. Denies diarrhea. Denies constipation. Denies nausea. Denies vomiting. MUSCULOSKELETAL: Denies myalgias. INTEGUMENTARY: Denies pruitis. Denies rash. NEUROLOGIC: Denies numbness. Denies tingling. Denies weakness. PSYCHIATRIC: Denies anxiety. Denies depression. ENDOCRINE: Denies fatigue. Denies weight change. Denies polydipsia. Denies polyurina. GENITOURINARY: Denies burning, hematuria or urgency with micturation. HEMATOLOGIC: Denies history of anemia. Denies bleeding. Blood pressure 124/64 heart rate 69 afebrile maintaining oxygen saturation on nasal cannula GENERAL: This is a 78-year-old female in no apparent distress at the time of my examination. HEENT: Head is atraumatic, normocephalic. Pupils are equal, round. Sclerae anicteric. Conjunctivae are clear. Mucous membranes of the mouth are moist. Neck is supple. There is no jugular venous distention. No carotid bruit is heard. LUNGS: Clear to auscultation no wheezes, rales or rhonchi. No chest wall tenderness is noted on palpation or with deep breathing. HEART: Regular rate and rhythm with systolic ejection murmur at the base, no rubs or gallops. S1 and S2 heard. ABDOMEN: Soft, nontender. Bowel sounds are heard. No organomegaly noted. EXTREMITIES: No evidence of peripheral edema and no calf tenderness noted. VASCULAR: Radial and dorsalis pedis pulses palpated, no evidence of clubbing. NEUROLOGIC: Patient is awake, alert and oriented x3. ASSESSMENT Chest pain suggestive of angina Hypertension, uncontrolled History of breast cancer s/p lumpectomy Coronary artery disease s/p stent placement to mid and proximal Aortic stenosis PLAN We have recommended proceeding with cardiac catheterization to further assess for progression of coronary artery disease. However, the patient and her family would not like to proceed with any sort of invasive testing. We have also discussed the option of stress testing then doing a cath if abnormal. She would like to try medications and conservative approach. We will add imdur 30 mg daily. She has been advised to follow up with Dr. Rascon upon discharge and if she continues to have chest discomfort she should consider proceeding with coronary angiography. Thank you kindly for this consultation. Nurse Practitioner note has been reviewed, I agree with a documented findings and plan of care. Patient was seen and examined. Past Medical History Past Medical History: Coronary Artery Disease (CAD), Cancer, Chest Pain / Angina, CVA/TIA, Hypertension, Myocardial Infarction (AR), Musculoskeletal Disorder, Neurologic Disorder, Osteoarthritis (OA), Renal Disease Additional Past Medical History / Comment(s): Parkinson's disease with bilateral feet neuropathy, CVA with slight L sided weakness, cardiac murmur, "leaky heart valves", herniated cervical discx with cervical pain, back pain with bilateral sciatica, L shoulder cuff tear and joint is frozen, L breast cancer with lumpectomy, R and L nares skin cancer removal, cyst on L kidney, mild kidney dysfunction, UTIs, PUD, IBS, benign colon polyp, vitamin B12 and D deficiency, anemia, L leg varicosities, migraines many years ago, , R ear pain and had MRI recently, past L leg and L ankle fractures. "R carotid plugged" Last Myocardial Infarction Date:: 2016 History of Any Multi-Drug Resistant Organisms: None Reported Past Surgical History: Adenoidectomy, Appendectomy, Bladder Surgery, Breast Surgery, Section, Cholecystectomy, Heart Catheterization, Heart Catheterization With Stent, Hysterectomy, Orthopedic Surgery, Tonsillectomy Additional Past Surgical History / Comment(s): 2017 PCI with stent to RCA, L breast lumpectomy, bilateral cataract removals with lens implants, L knee arthroscopy, L foot neuroma removed, R nares skin cancer removal, bladder suspension, sinus surgery, colonoscopy/benign polypectomy, angiogram. Past Anesthesia/Blood Transfusion Reactions: No Reported Reaction Date of Last Stent Placement:: 2016 Past Psychological History: Anxiety Additional Psychological History / Comment(s): Pt resides with her spouse who has numerous health problems. Pt's sister, Ava is very helpful to them. She comes to their home on a daily basis and does housekeeping and shopping for them. Sister drives pt to her appts. Pt has a cane and a walker and wheelchair and hospital bed, she uses the walker the most. She manages her own medications. Smoking Status: Never smoker Past Alcohol Use History: None Reported Additional Past Alcohol Use History / Comment(s): Patient smoked only as a teenager. No medical marijuana, marijuana, street drug or alcohol use. Past Drug Use History: None Reported - Past Family History Mother Additional Family Medical History / Comment(s): Mother at age 85 with history of coronary artery disease status post CABG and hypertension. Brother(s) Additional Family Medical History / Comment(s): Patient has a brother who from prostate cancer. Sister(s) Additional Family Medical History / Comment(s): Patient has lost 2 sisters one to pancreatic cancer and one to lung cancer. Son(s) Additional Family Medical History / Comment(s): She has had one son from brain tumor. Father Family Medical History: Cancer Additional Family Medical History / Comment(s): Father at age 56 from kidney cancer. Medications and Allergies Home Medications Medication Instructions Recorded Confirmed Type Aspirin EC [Ecotrin Low Dose] 81 mg PO DAILY 06/27/17 12/22/18 History Metoprolol Tartrate [Lopressor] 12.5 mg PO BID 06/27/17 12/22/18 History clonazePAM [KlonoPIN] 0.5 mg PO TID PRN 06/27/17 12/22/18 History Carbidopa/Levodopa [Rytary ER 2 cap PO 5XD 02/22/18 12/22/18 History 48.75 mg-195 mg Cap] Polyethylene Glycol 3350 [Miralax] 17 gm PO DAILY PRN 02/22/18 12/22/18 History Nitroglycerin Sl Tabs [Nitrostat] 0.4 mg SUBLINGUAL Q5M PRN #25 tab 02/23/18 12/22/18 Rx Pantoprazole [Protonix] 40 mg PO AC-BRKFST #30 tablet. 03/10/18 12/22/18 Rx Allergies Allergy/AdvReac Type Severity Reaction Status Date / Time codeine Allergy Severe RASH/VIRA Verified 12/22/18 07:22 adhesive Allergy Unknown Verified 12/22/18 07:22 clarithromycin [From Biaxin] Allergy Unknown Verified 12/22/18 07:22 kiwi Allergy Unknown Verified 12/22/18 07:22 latex Allergy Unknown Verified 12/22/18 07:22 levofloxacin [From Levaquin] Allergy Rash/Hives Verified 12/22/18 07:22 morphine Allergy Unknown Verified 12/22/18 07:22 nifedipine [From Procardia] Allergy Unknown Verified 12/22/18 07:22 amantadine AdvReac SHAKINESS Verified 12/22/18 07:22 methylcellulose Allergy Dyspnea Uncoded 12/22/18 07:22 Physical Exam Vitals: Vital Signs Temp Pulse Pulse Pulse Resp BP BP 12/23/18 07:40 97.8 F 69 18 124/64 12/23/18 03:50 15 12/23/18 02:44 97.6 F 73 15 150/63 12/22/18 23:51 14 12/22/18 23:30 97.3 F L 80 14 122/64 12/22/18 20:00 16 12/22/18 18:49 97.5 F L 80 16 115/56 12/22/18 17:58 76 16 115/54 12/22/18 17:45 87 115/53 12/22/18 16:39 198/76 12/22/18 16:00 97.7 F 67 18 211/68 12/22/18 12:57 98.4 F 68 18 216/76 12/22/18 12:50 98.1 F 67 18 175/66 12/22/18 12:21 67 18 175/66 12/22/18 12:00 68 18 12/22/18 10:46 75 16 182/67 Pulse Ox 12/23/18 07:40 98 12/23/18 03:50 12/23/18 02:44 96 12/22/18 23:51 12/22/18 23:30 95 12/22/18 20:00 12/22/18 18:49 97 12/22/18 17:58 96 12/22/18 17:45 12/22/18 16:39 12/22/18 16:00 97 12/22/18 12:57 99 12/22/18 12:50 97 12/22/18 12:21 97 12/22/18 12:00 12/22/18 10:46 98 Intake and Output 12/22/18 12/23/18 12/23/18 22:59 06:59 14:59 Intake Total 244.475 100.827 Balance 244.475 100.827 Intake: Intake, IV Titration 44.475 100.827 Amount Heparin Sod,Pork in 0.45% 44.475 100.827 NaCl 25,000 unit In 0.45 % NaCl 1 250ml.bag @ 12 UNITS/KG/HR 6.477 mls/hr IV .Q24H SAR[facility] Rx#: [id number] Oral 200 Other: Voiding Method Toilet Toilet # Voids 1 1 Weight 53.977 kg Results 12/22/18 06:21 12/22/18 06:21 Cardiac Enzymes 12/22/18 12/22/18 Range/Units 11:31 18:46 Troponin I 0.020 0.013 (0.000-0.034) ng/mL Coagulation 12/22/18 12/22/18 12/23/18 Range/Units 14:49 22:11 05:44 APTT 35.4 H 80.9 H 45.7 H (22.0-30.0) sec Lipids 12/23/18 Range/Units 05:44 Triglycerides 61 (<150) mg/dL Cholesterol 144 (<200) mg/dL HDL Cholesterol 39 L (40-60) mg/dL Current Medications Generic Name Dose Route Start Last Admin Trade Name Freq PRN Reason Stop Dose Admin Acetaminophen 650 mg 12/22/18 14:37 Tylenol Tab PO Q6HR PRN Mild Pain or Fever > 100.5 Hydrocodone Bitart/Acetaminophen 1 each 12/22/18 14:37 12/22/18 20:54 [place] 5-325 PO 1 each Q4HR PRN Administration Moderate Pain Amlodipine Besylate 10 mg 12/22/18 17:00 12/23/18 10:26 Norvasc PO 10 mg DAILY SARAI Administration Aspirin 81 mg 12/24/18 09:00 Aspirin PO DAILY [facility] Clonazepam 0.5 mg 12/22/18 09:14 12/22/18 20:37 Klonopin PO 0.5 mg TID PRN Administration Anxiety Heparin Sodium (Porcine) 0 unit 12/22/18 15:33 12/22/18 15:46 Heparin IV 2,698 unit PER PROTOCOL PRN Administration Low PTT Protocol Hydralazine HCl 25 mg 12/22/18 13:45 12/23/18 10:26 Apresoline PO 25 mg BID [facility] Administration Isosorbide Mononitrate 30 mg 12/23/18 10:45 Imdur PO DAILY [facility] Metoprolol Tartrate 12.5 mg 12/22/18 21:00 12/23/18 10:26 Lopressor PO 12.5 mg BID SAR[facility] Administration Morphine Sulfate 2 mg 12/22/18 14:37 Morphine Sulfate (Inj) IV Q4HR PRN Severe Pain Naloxone HCl 0.2 mg 12/22/18 14:37 Narcan IV Q2M PRN Opioid Reversal Nitroglycerin 0.4 mg 12/22/18 08:04 12/23/18 02:43 Nitrostat SUBLINGUAL 0.4 mg Q5M PRN Administration Chest Pain Non-Formulary Medication 2 cap 12/23/18 09:00 12/23/18 10:27 Carbidopa/Levodopa [Rytary Er 48.75 Mg-195 Mg Cap] PO 2 cap QID SARAI Administration Pantoprazole Sodium 40 mg 12/23/18 07:30 12/22/18 10:42 Protonix PO 40 mg AC-BRKFST SARAI Administration Intake and Output 12/22/18 12/23/18 12/23/18 22:59 06:59 14:59 Intake Total 244.475 100.827 Balance 244.475 100.827 Intake: Intake, IV Titration 44.475 100.827 Amount Heparin Sod,Pork in 0.45% 44.475 100.827 NaCl 25,000 unit In 0.45 % NaCl 1 250ml.bag @ 12 UNITS/KG/HR 6.477 mls/hr IV .Q24H [facility] Rx#: [id number] Oral 200 Other: Voiding Method Toilet Toilet # Voids 1 1 Weight 53.977 kg 12/22/18 06:21 12/22/18 06:21
[2018-12-23 12:21] VITALS: BP 119/77; PULSE 65; TEMP 98.3
[2018-12-23] MEDS: HEPARIN SOD,PORK IN 0.45% NACL 25,000 UNIT in 0.45% NACL 1 250ML.BAG IV SCH (12:47)
[2018-12-24] MEDS ORDERED: ASPIRIN 81 MG PO SCH (09:00)
== END 2018-12-23 15:30 | disposition home or self-care (01) ==
LOC: EC 05:54 → 1SOBS 08:40
PROVIDERS: ADMIT Family Medicine; ATTEND Family Medicine
DX: R07.89 Other chest pain (principal); G20 Parkinson's disease; I25.10 Atherosclerotic heart disease of native coronary artery without angina pectoris; G25.81 Restless legs syndrome; R11.0 Nausea; R06.02 Shortness of breath; R61 Generalized hyperhidrosis; R00.2 Palpitations; R63.4 Abnormal weight loss; Z68.21 Body mass index [BMI] 21.0-21.9, adult; I25.2 Old myocardial infarction; M19.90 Unspecified osteoarthritis, unspecified site; G62.9 Polyneuropathy, unspecified; N28.1 Cyst of kidney, acquired; I83.92 Asymptomatic varicose veins of left lower extremity; G43.909 Migraine, unspecified, not intractable, without status migrainosus; I69.354 Hemiplegia and hemiparesis following cerebral infarction affecting left non-dominant side; F41.9 Anxiety disorder, unspecified; I16.0 Hypertensive urgency; K21.9 Gastro-esophageal reflux disease without esophagitis; I35.0 Nonrheumatic aortic (valve) stenosis; G89.29 Other chronic pain; I12.9 Hypertensive chronic kidney disease with stage 1 through stage 4 chronic kidney disease, or unspecified chronic kidney disease; N18.9 Chronic kidney disease, unspecified; Z90.49 Acquired absence of other specified parts of digestive tract; Z95.5 Presence of coronary angioplasty implant and graft; Z85.3 Personal history of malignant neoplasm of breast; Z85.828 Personal history of other malignant neoplasm of skin; Z87.440 Personal history of urinary (tract) infections; Z86.010 Personal history of colon polyps; Z87.11 Personal history of peptic ulcer disease; Z87.891 Personal history of nicotine dependence; Z79.82 Long term (current) use of aspirin; Z79.899 Other long term (current) drug therapy; Z88.1 Allergy status to other antibiotic agents; Z91.040 Latex allergy status; Z88.5 Allergy status to narcotic agent; Z88.8 Allergy status to other drugs, medicaments and biological substances; Z91.018 Allergy to other foods; Z91.048 Other nonmedicinal substance allergy status; Z80.42 Family history of malignant neoplasm of prostate; Z82.0 Family history of epilepsy and other diseases of the nervous system; Z80.1 Family history of malignant neoplasm of trachea, bronchus and lung; Z80.51 Family history of malignant neoplasm of kidney; Z80.0 Family history of malignant neoplasm of digestive organs
CPT/HCPCS: 96366 ×3; 96375 ×2; 96376 ×2; 96365; 99291; 36415; 93005; 93306; 97162; 83880; 80061; 80048; 84484; 85025; 85610; 85730 ×2; 71045; G0378 ×2; J0360; J1644 ×2

== ENCOUNTER 2019-03-19 13:25 | Inpatient (IN) | payer MEDICARE, BC ==
[2019-03-19] MEDS ORDERED: SODIUM CHLORIDE 0.9% 500 ML 500 ML IV STA (13:46)
--- NOTE | 2019-03-19 13:51 | ED ---
General Adult HPI - General Chief complaint: Chest Pain Stated complaint: Chest pain Time Seen by Provider: 03/19/19 13:40 Source: patient, EMS, RN notes reviewed, old records reviewed Mode of arrival: EMS Limitations: no limitations - History of Present Illness Initial comments: 78-year-old female presenting with multiple complaints. She complains of left- sided chest pain which began approximately 3 hours prior to arrival. She did report some flank pain on the left as well. She states she has been dealing with constipation for the past one week. She has not had a solid bowel movement in one week. She has been taking MiraLAX with no relief. Symptoms began shortly after drinking one full glass containing MiraLAX. Pain is resolved at the time my evaluation. She has no chest pain or abdominal pain. She has past medical history of CAD, Parkinson's, hypertension. - Related Data Home Medications Medication Instructions Recorded Confirmed Aspirin EC [Ecotrin Low Dose] 81 mg PO DAILY 06/27/17 03/19/19 Metoprolol Tartrate [Lopressor] 12.5 mg PO BID 06/27/17 03/19/19 clonazePAM [KlonoPIN] 0.5 mg PO TID PRN 06/27/17 03/19/19 Carbidopa/Levodopa [Rytary ER 2 cap PO 5XD 02/22/18 03/19/19 48.75 mg-195 mg Cap] Polyethylene Glycol 3350 [Miralax] 17 gm PO DAILY PRN 02/22/18 03/19/19 Previous Rx's Medication Instructions Recorded Nitroglycerin Sl Tabs [Nitrostat] 0.4 mg SUBLINGUAL Q5M PRN #25 tab 02/23/18 Allergies Allergy/AdvReac Type Severity Reaction Status Date / Time codeine Allergy Severe RASH/VIRA Verified 03/19/19 15:38 adhesive Allergy Unknown Verified 03/19/19 15:38 clarithromycin [From Biaxin] Allergy Unknown Verified 03/19/19 15:38 kiwi Allergy Unknown Verified 03/19/19 15:38 latex Allergy Unknown Verified 03/19/19 15:38 levofloxacin [From Levaquin] Allergy Rash/Hives Verified 03/19/19 15:38 morphine Allergy Unknown Verified 03/19/19 15:38 nifedipine [From Procardia] Allergy Unknown Verified 03/19/19 15:38 amantadine AdvReac SHAKINESS Verified 03/19/19 15:38 methylcellulose Allergy Dyspnea Uncoded 12/22/18 07:22 Review of Systems ROS Statement: Those systems with pertinent positive or pertinent negative responses have been documented in the HPI. ROS Other: All systems not noted in ROS Statement are negative. Past Medical History Past Medical History: Coronary Artery Disease (CAD), Cancer, Chest Pain / Angina, CVA/TIA, Hypertension, Myocardial Infarction (RI), Musculoskeletal Disorder, Neurologic Disorder, Osteoarthritis (OA), Renal Disease Additional Past Medical History / Comment(s): Parkinson's disease with bilateral feet neuropathy, CVA with slight L sided weakness, cardiac murmur, "leaky heart valves", herniated cervical discx with cervical pain, back pain with bilateral sciatica, L shoulder cuff tear and joint is frozen, L breast cancer with lumpectomy, R and L nares skin cancer removal, cyst on L kidney, mild kidney dysfunction, UTIs, PUD, IBS, benign colon polyp, vitamin B12 and D deficiency, anemia, L leg varicosities, migraines many years ago, , R ear pain and had MRI recently, past L leg and L ankle fractures. "R carotid plugged" Last Myocardial Infarction Date:: 2016 History of Any Multi-Drug Resistant Organisms: None Reported Past Surgical History: Adenoidectomy, Appendectomy, Bladder Surgery, Breast Surgery, Section, Cholecystectomy, Heart Catheterization, Heart Catheterization With Stent, Hysterectomy, Orthopedic Surgery, Tonsillectomy Additional Past Surgical History / Comment(s): 2017 PCI with stent to RCA, L breast lumpectomy, bilateral cataract removals with lens implants, L knee arthroscopy, L foot neuroma removed, R nares skin cancer removal, bladder suspension, sinus surgery, colonoscopy/benign polypectomy, angiogram. Past Anesthesia/Blood Transfusion Reactions: No Reported Reaction Date of Last Stent Placement:: 2016 Past Psychological History: Anxiety Smoking Status: Never smoker Past Alcohol Use History: None Reported Past Drug Use History: None Reported - Past Family History Mother Additional Family Medical History / Comment(s): Mother at age 85 with hi story of coronary artery disease status post CABG and hypertension. Brother(s) Additional Family Medical History / Comment(s): Patient has a brother who from prostate cancer. Sister(s) Additional Family Medical History / Comment(s): Patient has lost 2 sisters one to pancreatic cancer and one to lung cancer. Son(s) Additional Family Medical History / Comment(s): She has had one son from b rain tumor. Father Family Medical History: Cancer Additional Family Medical History / Comment(s): Father at age 56 from kidney cancer. General Exam Limitations: no limitations General appearance: alert, in no apparent distress, other (Patient appears stoic) Head exam: Present: atraumatic, normocephalic Eye exam: Present: normal appearance, PERRL Neck exam: Present: normal inspection. Absent: tenderness, meningismus Respiratory exam: Present: normal lung sounds bilaterally. Absent: respiratory distress, wheezes, rales Cardiovascular Exam: Present: regular rate, normal rhythm GI/Abdominal exam: Present: soft, distended. Absent: tenderness, guarding, rebound Extremities exam: Present: normal inspection, normal capillary refill, other (Distal pulses intact). Absent: pedal edema, calf tenderness Neurological exam: Present: alert, oriented X3. Absent: motor sensory deficit Psychiatric exam: Present: normal mood, flat affect Skin exam: Present: warm, dry, intact, pallor. Absent: cyanosis, diaphoretic Course Vital Signs 03/19/19 03/19/19 03/19/19 13:30 13:32 13:41 Temperature 98.1 F Pulse Rate 74 Pulse Rate [ 78 Crystal Lapper ] Respiratory 16 21 Rate Blood Pressure 208/85 O2 Sat by Pulse 100 100 Oximetry 03/19/19 03/19/19 03/19/19 13:50 14:00 14:10 Temperature Pulse Rate 77 75 74 Pulse Rate [ Crystal Lapper ] Respiratory 16 20 16 Rate Blood Pressure 208/85 208/85 194/83 O2 Sat by Pulse 100 100 100 Oximetry 03/19/19 03/19/19 03/19/19 14:20 14:30 14:40 Temperature Pulse Rate 70 71 Pulse Rate [ Crystal Lapper ] Respiratory 15 15 Rate Blood Pressure 194/83 194/83 O2 Sat by Pulse 100 Oximetry 03/19/19 03/19/19 03/19/19 14:50 15:00 15:10 Temperature Pulse Rate 74 75 71 Pulse Rate [ Crystal Lapper ] Respiratory 20 19 19 Rate Blood Pressure 199/79 O2 Sat by Pulse Oximetry 03/19/19 03/19/19 03/19/19 15:20 15:30 15:40 Temperature Pulse Rate 73 64 78 Pulse Rate [ Crystal Lapper ] Respiratory 17 16 20 Rate Blood Pressure 199/79 199/79 198/77 O2 Sat by Pulse Oximetry 03/19/19 03/19/19 03/19/19 15:50 16:00 16:10 Temperature Pulse Rate 75 75 74 Pulse Rate [ Crystal Lapper ] Respiratory 20 17 16 Rate Blood Pressure 198/77 198/77 186/66 O2 Sat by Pulse Oximetry 03/19/19 03/19/19 03/19/19 16:20 16:30 16:40 Temperature Pulse Rate 70 75 74 Pulse Rate [ Crystal Lapper ] Respiratory 16 18 16 Rate Blood Pressure 186/66 186/66 183/74 O2 Sat by Pulse Oximetry 03/19/19 03/19/19 03/19/19 16:50 17:00 17:10 Temperature Pulse Rate 75 74 71 Pulse Rate [ Crystal Lapper ] Respiratory 20 17 18 Rate Blood Pressure 183/74 183/74 198/80 O2 Sat by Pulse Oximetry 03/19/19 03/19/19 03/19/19 17:20 17:30 17:40 Temperature Pulse Rate 70 66 67 Pulse Rate [ Crystal Lapper ] Respiratory 16 18 15 Rate Blood Pressure 207/86 207/86 196/77 O2 Sat by Pulse Oximetry 03/19/19 03/19/19 03/19/19 17:50 18:00 18:10 Temperature Pulse Rate 64 64 70 Pulse Rate [ Crystal Lapper ] Respiratory 16 20 19 Rate Blood Pressure 196/77 196/77 205/80 O2 Sat by Pulse Oximetry 03/19/19 03/19/19 03/19/19 18:12 18:20 18:30 Temperature Pulse Rate 76 76 73 Pulse Rate [ Crystal Lapper ] Respiratory 18 13 20 Rate Blood Pressure 213/85 178/110 160/64 O2 Sat by Pulse 98 99 98 Oximetry 03/19/19 03/19/19 03/19/19 18:40 18:50 19:00 Temperature Pulse Rate 72 76 75 Pulse Rate [ Crystal Lapper ] Respiratory 9 L 19 15 Rate Blood Pressure 179/77 165/66 155/51 O2 Sat by Pulse 99 98 98 Oximetry 03/19/19 03/19/19 03/19/19 20:00 21:00 22:00 Temperature Pulse Rate 78 62 74 Pulse Rate [ Crystal Lapper ] Respiratory 18 18 16 Rate Blood Pressure 163/68 121/59 149/58 O2 Sat by Pulse 95 94 L 94 L Oximetry 03/19/19 03/20/19 23:00 00:00 Temperature Pulse Rate 76 Pulse Rate [ 57 L Crystal Lapper ] Respiratory 16 15 Rate Blood Pressure 131/56 O2 Sat by Pulse 96 Oximetry - Reevaluation(s) Reevaluation #1: 03/19/19 0087 Patient had received aspirin and nitroglycerin prior to arrival. Nitroglycerin did not improve her symptoms. EKG Findings - EKG Comments: EKG Findings:: EKG: Normal sinus rhythm rate of 70, SC interval 162, QRS duration 86, QTC 432, hyper acute T waves in the precordial leads primarily V2 V3. This is increased from previous in December 2018. Multiple EKGs obtained in emergency department which are stable. Medical Decision Making - Medical Decision Making 78-year-old female presenting for evaluation of left-sided chest pain. Pain is described as atypical. She did have some flank pain. Patient believes her symptoms may be related to some constipation which she has been dealing with for the past one week. Chest x-rays obtained, negative for acute cardiac disease, KUB does show fecal stasis. She has a normal CBC, normal CMP, troponin is negative. This will be trended. Urinalysis is negative. Patient will be admitted with hypertensive urgency, atypical chest pain. - Lab Data Result diagrams: 03/19/19 14:51 03/19/19 14:51 Lab Results 03/19/19 03/19/19 03/19/19 Range/Units 14:51 14:51 14:51 WBC 5.6 (3.8-10.6) k/uL RBC 4.63 (3.80-5.40) m/uL Hgb 12.8 (11.4-16.0) gm/dL Hct 39.3 (34.0-46.0) % MCV 84.9 (80.0-100.0) fL MCH 27.7 (25.0-35.0) pg MCHC 32.6 (31.0-37.0) g/dL RDW 14.7 (11.5-15.5) % Plt Count 231 (150-450) k/uL Neutrophils % 69 % Lymphocytes % 24 % Monocytes % 4 % Eosinophils % 2 % Basophils % 1 % Neutrophils # 3.9 (1.3-7.7) k/uL Lymphocytes # 1.3 (1.0-4.8) k/uL Monocytes # 0.2 (0-1.0) k/uL Eosinophils # 0.1 (0-0.7) k/uL Basophils # 0.0 (0-0.2) k/uL PT 10.1 (9.0-12.0) sec INR 0.9 (<1.2) APTT 22.0 (22.0-30.0) sec Sodium 142 (137-145) mmol/L Potassium 4.9 (3.5-5.1) mmol/L Chloride 104 (98-107) mmol/L Carbon Dioxide 29 (22-30) mmol/L Anion Gap 9 mmol/L BUN 31 H (7-17) mg/dL Creatinine 0.64 (0.52-1.04) mg/dL Est GFR (CKD-EPI)AfAm >90 (>60 ml/min/1.73 sqM) Est GFR (CKD-EPI)NonAf 87 (>60 ml/min/1.73 sqM) Glucose 93 (74-99) mg/dL Calcium 9.7 (8.4-10.2) mg/dL Magnesium 2.2 (1.6-2.3) mg/dL Total Bilirubin 1.0 (0.2-1.3) mg/dL AST 22 (14-36) U/L ALT <6 L (9-52) U/L Alkaline Phosphatase 65 (38-126) U/L Troponin I (0.000-0.034) ng/mL Total Protein 8.4 H (6.3-8.2) g/dL Albumin 4.7 (3.5-5.0) g/dL Urine Color Urine Appearance (Clear) Urine pH (5.0-8.0) Ur Specific [place] (1.001-1.035) Urine Protein (Negative) Urine Glucose (UA) (Negative) Urine Ketones (Negative) Urine Blood (Negative) Urine Nitrite (Negative) Urine Bilirubin (Negative) Urine Urobilinogen (<2.0) mg/dL Ur Leukocyte Esterase (Negative) Urine RBC (0-5) /hpf Urine WBC (0-5) /hpf Ur Squamous Epith Cells (0-4) /hpf 06/29/19 06/29/19 06/29/19 Range/Units 14:51 15:45 18:22 WBC (3.8-10.6) k/uL RBC (3.80-5.40) m/uL Hgb (11.4-16.0) gm/dL Hct (34.0-46.0) % MCV (80.0-100.0) fL MCH (25.0-35.0) pg MCHC (31.0-37.0) g/dL RDW (11.5-15.5) % Plt Count (150-450) k/uL Neutrophils % % Lymphocytes % % Monocytes % % Eosinophils % % Basophils % % Neutrophils # (1.3-7.7) k/uL Lymphocytes # (1.0-4.8) k/uL Monocytes # (0-1.0) k/uL Eosinophils # (0-0.7) k/uL Basophils # (0-0.2) k/uL PT (9.0-12.0) sec INR (<1.2) APTT (22.0-30.0) sec Sodium (137-145) mmol/L Potassium (3.5-5.1) mmol/L Chloride (98-107) mmol/L Carbon Dioxide (22-30) mmol/L Anion Gap mmol/L BUN (7-17) mg/dL Creatinine (0.52-1.04) mg/dL Est GFR (CKD-EPI)AfAm (>60 ml/min/1.73 sqM) Est GFR (CKD-EPI)NonAf (>60 ml/min/1.73 sqM) Glucose (74-99) mg/dL Calcium (8.4-10.2) mg/dL Magnesium (1.6-2.3) mg/dL Total Bilirubin (0.2-1.3) mg/dL AST (14-36) U/L ALT (9-52) U/L Alkaline Phosphatase (38-126) U/L Troponin I <0.012 <0.012 (0.000-0.034) ng/mL Total Protein (6.3-8.2) g/dL Albumin (3.5-5.0) g/dL Urine Color Colorless Urine Appearance Clear (Clear) Urine pH 6.5 (5.0-8.0) Ur Specific [place] 1.002 (1.001-1.035) Urine Protein Negative (Negative) Urine Glucose (UA) Negative (Negative) Urine Ketones Negative (Negative) Urine Blood Negative (Negative) Urine Nitrite Negative (Negative) Urine Bilirubin Negative (Negative) Urine Urobilinogen <2.0 (<2.0) mg/dL Ur Leukocyte Esterase Moderate H (Negative) Urine RBC 1 (0-5) /hpf Urine WBC 7 H (0-5) /hpf Ur Squamous Epith Cells <1 (0-4) /hpf Disposition Clinical Impression: Dehydration, Atypical chest pain, Hypertension Disposition: ADMITTED IP TO THIS HOSP Condition: Stable Is patient prescribed a controlled substance at d/c from ED?: No Decision to Admit Reason: Admit from EC Decision Date: 03/19/19 Decision Time: 18:56
--- NOTE | 2019-03-19 14:42 | XR ---
EXAMINATION TYPE: XR chest 2V DATE OF EXAM: 03/19/2019 COMPARISON: 12/22/2018 HISTORY: Chest pain TECHNIQUE: Frontal and lateral views of the chest are obtained. FINDINGS: There is no focal air space opacity, pleural effusion, or pneumothorax seen. Enlargement o f the main pulmonary arteries is chronic and may represent underlying pulmonary arterial hypertension . The cardiac silhouette size is within normal limits. Diffuse osseous demineralization limits the ev aluation of the osseous structures, particularly of the upper thoracic spine. Surgical clips are seen within the left chest soft tissues. Overlying leads partially obscured the midlungs. IMPRESSION: Chronic findings with no acute cardiopulmonary process.
--- NOTE | 2019-03-19 14:43 | XR ---
EXAMINATION TYPE: XR KUB DATE OF EXAM: 03/19/2019 2:33 PM CLINICAL HISTORY: Abdominal pain TECHNIQUE: Single supine KUB image of the abdomen is obtained. COMPARISON: 06/27/2017. FINDINGS: Scattered gas is seen in nondilated small bowel loops. Gas and fecal material is seen in no ndilated colon. There is no visceromegaly, pneumoperitoneum, or abnormal calcification appreciated. T he lung bases are clear and the osseous structures are intact. IMPRESSION: Moderate fecal stasis in an overall nonobstructive bowel gas pattern.
[2019-03-19 15:00] LABS: Basophils % (A) 1 %; Eosinophils # (A) 0.1 k/uL (0-0.7); Eosinophils % (A) 2 %; HCT 39.3 % (34.0-46.0); HGB 12.8 gm/dL (11.4-16.0); Lymphocytes # (A) 1.3 k/uL (1.0-4.8); Lymphocytes % (A) 24 %; MCH 27.7 pg (25.0-35.0); MCHC 32.6 g/dL (31.0-37.0); MCV 84.9 fL (80.0-100.0); Mean Platelet Volume 7.5; Monocytes # (A) 0.2 k/uL (0-1.0); Monocytes % (A) 4 %; Neutrophils # (A) 3.9 k/uL (1.3-7.7); Neutrophils % (A) 69 %; Platelet Count 231 k/uL (150-450); RBC 4.63 m/uL (3.80-5.40); RDW 14.7 % (11.5-15.5); WBC 5.6 k/uL (3.8-10.6)
[2019-03-19 15:08] LABS: ALT <6 U/L (9-52); AST 22 U/L (14-36); African American GFR (CKD) >90 (>60 ml/min/1.73 sqM); Albumin 4.7 g/dL (3.5-5.0); Alkaline Phosphatase 65 U/L (38-126); Anion Gap 9 mmol/L; Blood Urea Nitrogen 31 mg/dL (7-17); Calcium 9.7 mg/dL (8.4-10.2); Carbon Dioxide 29 mmol/L (22-30); Chloride 104 mmol/L (98-107); Glucose 93 mg/dL (74-99); Magnesium 2.2 mg/dL (1.6-2.3); Potassium 4.9 mmol/L (3.5-5.1); Sodium 142 mmol/L (137-145); Total Protein 8.4 g/dL (6.3-8.2)
[2019-03-19 15:25] LABS: INR 0.9 (<1.2); Prothrombin Time 10.1 sec (9.0-12.0)
[2019-03-19 16:12] LABS: Appearance,Urine Clear (Clear); Bilirubin,Urine Negative (Negative); Blood,Urine Negative (Negative); Color,Urine Colorless; Glucose,Urine (UA) Negative (Negative); Ketones,Urine Negative (Negative); Leukocyte Esterase,Urine Moderate (Negative); Nitrite,Urine Negative (Negative); PH, Urine 6.5 (5.0-8.0); Protein,Urine Negative (Negative); RBC,Urine 1 /hpf (0-5); Specific Gravity,Urine 1.002 (1.001-1.035); Squamous Epithelial Cell,Urine <1 /hpf (0-4); Urobilinogen,Urine <2.0 mg/dL (<2.0); WBC,Urine 7 /hpf (0-5)
[2019-03-19] MEDS ORDERED: LABETALOL SYRINGE 5 MG/ML IVP STA (16:18)
[2019-03-19] MEDS ORDERED: MAGNESIUM CITRATE 296 ML BOTTLE PO ONE (17:35)
[2019-03-19] MEDS ORDERED: NITROGLYCERIN SL TABS 0.4 MG TAB SUBLINGUAL PRN (18:19)
[2019-03-19] MEDS ORDERED: clonazePAM 0.5 MG TAB PO PRN (18:19)
[2019-03-19] MEDS ORDERED: HYDROmorphone 0.5 MG/0.5 ML SYRINGE IVP PRN (18:20)
[2019-03-19] MEDS ORDERED: NALOXONE 0.4 MG/ML 1 ML VIAL IV PRN (18:20)
[2019-03-19] MEDS ORDERED: ACETAMINOPHEN TAB 325 MG TAB PO PRN (18:20)
[2019-03-19] MEDS ORDERED: SODIUM CHLORIDE 0.9% 1,000 ML IV SCH (18:30)
[2019-03-19] MEDS ORDERED: hydrALAZINE HCL 20 MG/ML 1 ML VIAL IVP PRN (18:57)
[2019-03-19] MEDS: METOPROLOL TARTRATE 12.5 MG TAB PO SCH (23:48)
[2019-03-20 07:17] VITALS: BMI 21.9
[2019-03-20] MEDS: METOPROLOL TARTRATE 12.5 MG TAB PO SCH (08:24)
[2019-03-20] MEDS ORDERED: ASPIRIN 81 MG PO SCH (09:00)
[2019-03-20] MEDS ORDERED: amLODIPine 5 MG TAB PO SCH (11:00)
--- NOTE | 2019-03-20 11:33 | P.CRDCN ---
History of Present Illness Consult date: 03/20/19 Consult reason: chest pain History of present illness: This is a 78-year-old female patient of Dr. Rascon with past medical history significant of coronary artery disease s/p stent placement to RCA in 2016, hypertension, Parkinson's disease, aortic stenosis, breast cancer s/p lumpectomy and chronic kidney disease. Patient had a recent hospitalization in December at which time she was evaluated by cardiology for chest pain with recommendations for heart catheterization but family did not want to pursue this and were provided the option of stress testing but they preferred medical management and conservative approach. Imdur 30 mg daily was added at that time and patient have follow-up in the office with Dr. Rascon. We have been asked to see her in consultation for chest pain. Patient apparently developed left-sided chest pain proximal January 3 hours prior to arrival to the emergency center as well as left flank pain. Patient is currently denying any chest pain and complains of constipation which is been a problem for the past week. She has been taking MiraLAX and unable to have a good bowel movement. Her initial blood pressure was 208/85 and heart rate 74. EKG reveals sinus mechanism heart rate of 70. Chest x-ray reveals chronic findings with no acute cardiopulmonary process. Abdominal x-ray revealed moderate fecal stasis and an overall nonobstructive bowel gas pattern. Laboratory data: CBC within normal limits as well as electrolytes, liver function tests. BUN 31 creatinine 0.64. Troponins negative 3. LDL 93, HDL 39, triglycerides 61, cholesterol 144 on 12/23/2018. Current cardiac medications include metoprolol 12.5 mg twice a day and aspirin 81 mg daily. Most recent echocardiogram obtained in December 2018 revealed ejection fraction 5560%, moderately dilated left atrium, moderate aortic valve sclerosis, m oderate aortic regurgitation, mild aortic stenosis with a mean gradient of 24 mmHg, moderate mitral regurgitation, mild to moderate mitral stenosis, mild tricuspid regurgitation, mild to moderate pulmonary hypertension. She underwent cardiac catheterization in September 2016 in the setting of a non-ST elevated myocardial infarction and received stents to the proximal and mid RCA. Subtotally occluded right coronary artery fills by collaterals from the left coronary system. Mild disease involving the left coronary system which seems to be very tortuous. Review Of Systems: Constitutional: No fever, no chills, no night sweats. No weight change. No weakness, fatigue or lethargy. No daytime sleepiness. EENT: No headache. No blurred vision or double vision, no loss of vision. No loss of Hearing, no ringing in the ears, no dizziness. No nasal drainage or congestion. No epistaxis. No sore throat. Lungs: No shortness of breath, cough, no sputum production. No wheezing. Cardiovascular: No chest pain, no lower extremity edema. No palpitations. No paroxysmal nocturnal dyspnea. No orthopnea. No lightheadedness or dizziness. No syncopal episodes. Abdominal: Reports lower abdominal pain. No nausea, vomiting. No diarrhea. Reports constipation. No bloody or tarry stools. Genitourinary: No dysuria, increased frequency, urgency. No urinary retention. Musculoskeletal: No myalgias. No muscle weakness, no gait dysfunction, no frequent falls. No back pain. No neck pain. Integumentary: No wounds, no lesions. No rash or pruritus. No unusual bruising. No change in hair or nails. Neurologic: No aphasia. No facial droop. No change in mentation. No head injury. No headache. No paralysis. No paresthesia. Psychiatric: No depression. No anxiety. No mood swings. Endocrine: No abnormal blood sugars. No weight change. No excessive sweating or thirst. No cold intolerance. No weight change. Gen: This is a 78-year-old female. She is sitting on the edge of the bed and appears comfortable and in no acute distress. Blood pressure 150/67, heart rate 72, pulse ox 99% on room air. HEENT: Head is atraumatic, normocephalic. Pupils equal, round. Sclerae is anicteric. NECK: Supple. No JVD. No lymphadenopathy. No thyromegaly. LUNGS: Clear to auscultation. No wheezes or rhonchi. No intercostal retractions. HEART: Regular rate and rhythm. Systolic ejection murmur at the base. ABDOMEN: Soft. Bowel sounds are present. No masses. No tenderness. EXTREMITIES: No pedal edema. No calf tenderness. Dorsalis pedis +2 bilaterally. NEUROLOGICAL: Patient is awake, alert and oriented x3. Cranial nerves 2 through 12 are grossly intact. Assessment: Atypical chest pain, no evidence of acute coronary syndrome. Hypertension, uncontrolled. History of breast cancer status post lumpectomy. Coronary artery disease status post stent placement to the mid and proximal LAD. Aortic stenosis. Plan: Add amlodipine 5 mg daily and increase metoprolol tartrate to 25 mg twice daily for better blood pressure control. Follow-up with Dr. Rascon in one week. Patient is cleared for discharge home from cardiology. Nurse practitioner note has been reviewed, I agree with documented findings and plan of care. Patient was seen and examined. Past Medical History Past Medical History: Coronary Artery Disease (CAD), Cancer, Chest Pain / Angina, CVA/TIA, Hypertension, Myocardial Infarction ([place]), Musculoskeletal Disorder, Neurologic Disorder, Osteoarthritis (OA), Renal Disease Additional Past Medical History / Comment(s): Parkinson's disease with bilateral feet neuropathy, CVA with slight L sided weakness, cardiac murmur, "leaky heart valves", herniated cervical discx with cervical pain, back pain with bilateral sciatica, L shoulder cuff tear and joint is frozen, L breast cancer with lumpectomy, R and L nares skin cancer removal, cyst on L kidney, mild kidney dysfunction, UTIs, PUD, IBS, benign colon polyp, vitamin B12 and D deficiency, anemia, L leg varicosities, migraines many years ago, , R ear pain and had MRI recently, past L leg and L ankle fractures. "R carotid plugged" Last Myocardial Infarction Date:: 2016 History of Any Multi-Drug Resistant Organisms: None Reported Past Surgical History: Adenoidectomy, Appendectomy, Bladder Surgery, Breast Surgery, Section, Cholecystectomy, Heart Catheterization, Heart Catheterization With Stent, Hysterectomy, Orthopedic Surgery, Tonsillectomy Additional Past Surgical History / Comment(s): 2017 PCI with stent to RCA, L breast lumpectomy, bilateral cataract removals with lens implants, L knee arthroscopy, L foot neuroma removed, R nares skin cancer removal, bladder suspension, sinus surgery, colonoscopy/benign polypectomy, angiogram. Past Anesthesia/Blood Transfusion Reactions: No Reported Reaction Date of Last Stent Placement:: 2016 Past Psychological History: Anxiety Smoking Status: Never smoker Past Alcohol Use History: None Reported Past Drug Use History: None Reported - Past Family History Mother Additional Family Medical History / Comment(s): Mother at age 85 with history of coronary artery disease status post CABG and hypertension. Brother(s) Additional Family Medical History / Comment(s): Patient has a brother who from prostate cancer. Sister(s) Additional Family Medical History / Comment(s): Patient has lost 2 sisters one to pancreatic cancer and one to lung cancer. Son(s) Additional Family Medical History / Comment(s): She has had one son from brain tumor. Father Family Medical History: Cancer Additional Family Medical History / Comment(s): Father at age 56 from kidney cancer. Medications and Allergies Home Medications Medication Instructions Recorded Confirmed Type Aspirin EC [Ecotrin Low Dose] 81 mg PO DAILY 06/27/17 03/19/19 History Metoprolol Tartrate [Lopressor] 12.5 mg PO BID 06/27/17 03/19/19 History clonazePAM [KlonoPIN] 0.5 mg PO TID PRN 06/27/17 03/19/19 History Carbidopa/Levodopa [Rytary ER 2 cap PO 5XD 02/22/18 03/19/19 History 48.75 mg-195 mg Cap] Polyethylene Glycol 3350 [Miralax] 17 gm PO DAILY PRN 02/22/18 03/19/19 History Nitroglycerin Sl Tabs [Nitrostat] 0.4 mg SUBLINGUAL Q5M PRN #25 tab 02/23/18 03/19/19 Rx Allergies Allergy/AdvReac Type Severity Reaction Status Date / Time codeine Allergy Severe RASH/VIRA Verified 03/19/19 15:38 adhesive Allergy Unknown Verified 03/19/19 15:38 clarithromycin [From Biaxin] Allergy Unknown Verified 03/19/19 15:38 kiwi Allergy Unknown Verified 03/19/19 15:38 latex Allergy Unknown Verified 03/19/19 15:38 levofloxacin [From Levaquin] Allergy Rash/Hives Verified 03/19/19 15:38 morphine Allergy Unknown Verified 03/19/19 15:38 nifedipine [From Procardia] Allergy Unknown Verified 03/19/19 15:38 amantadine AdvReac SHAKINESS Verified 03/19/19 15:38 methylcellulose Allergy Dyspnea Uncoded 12/22/18 07:22 Physical Exam Vitals: Vital Signs Temp Pulse Pulse Resp BP BP Pulse Ox 03/20/19 08:00 98.1 F 72 16 158/67 99 03/20/19 07:53 53 L 03/20/19 04:00 98.2 F 53 L 16 142/66 94 L 03/20/19 01:30 98.4 F 72 16 207/80 96 03/20/19 00:00 57 L 15 03/19/19 23:00 76 16 131/56 96 03/19/19 22:00 74 16 149/58 94 L 03/19/19 21:00 62 18 121/59 94 L 03/19/19 20:00 78 18 163/68 95 03/19/19 19:00 75 15 155/51 98 03/19/19 18:50 76 19 165/66 98 03/19/19 18:40 72 9 L 179/77 99 03/19/19 18:30 73 20 160/64 98 03/19/19 18:20 76 13 178/110 99 03/19/19 18:12 76 18 213/85 98 03/19/19 18:10 70 19 205/80 03/19/19 18:00 64 20 196/77 03/19/19 17:50 64 16 196/77 03/19/19 17:40 67 15 196/77 03/19/19 17:30 66 18 207/86 03/19/19 17:20 70 16 207/86 03/19/19 17:10 71 18 198/80 03/19/19 17:00 74 17 183/74 03/19/19 16:50 75 20 183/74 03/19/19 16:40 74 16 183/74 03/19/19 16:30 75 18 186/66 03/19/19 16:20 70 16 186/66 03/19/19 16:10 74 16 186/66 03/19/19 16:00 75 17 198/77 03/19/19 15:50 75 20 198/77 03/19/19 15:40 78 20 198/77 03/19/19 15:30 64 16 199/79 03/19/19 15:20 73 17 199/79 03/19/19 15:10 71 19 199/79 03/19/19 15:00 75 19 03/19/19 14:50 74 20 03/19/19 14:40 71 15 03/19/19 14:30 194/83 03/19/19 14:20 70 15 194/83 100 03/19/19 14:10 74 16 194/83 100 03/19/19 14:00 75 20 208/85 100 03/19/19 13:50 77 16 100 03/19/19 13:41 21 100 03/19/19 13:32 98.1 F 74 16 100 03/19/19 13:30 78 Intake and Output 03/19/19 03/20/19 03/20/19 22:59 06:59 14:59 Intake Total 600 Balance 600 Intake: Amount of Fluid Infused ( 600 ml) Other: Voiding Method Toilet # Voids 1 Weight 52.5 kg Results 03/19/19 14:51 03/19/19 14:51 Cardiac Enzymes 03/19/19 03/19/19 03/19/19 Range/Units 14:51 14:51 18:22 AST 22 (14-36) U/L Troponin I <0.012 <0.012 (0.000-0.034) ng/mL 03/20/19 Range/Units 02:54 AST (14-36) U/L Troponin I <0.012 (0.000-0.034) ng/mL Coagulation 03/19/19 Range/Units 14:51 PT 10.1 (9.0-12.0) sec APTT 22.0 (22.0-30.0) sec CBC 03/19/19 Range/Units 14:51 WBC 5.6 (3.8-10.6) k/uL RBC 4.63 (3.80-5.40) m/uL Hgb 12.8 (11.4-16.0) gm/dL Hct 39.3 (34.0-46.0) % Plt Count 231 (150-450) k/uL Comprehensive Metabolic Panel 03/19/19 Range/Units 14:51 Sodium 142 (137-145) mmol/L Potassium 4.9 (3.5-5.1) mmol/L Chloride 104 (98-107) mmol/L Carbon Dioxide 29 (22-30) mmol/L BUN 31 H (7-17) mg/dL Creatinine 0.64 (0.52-1.04) mg/dL Glucose 93 (74-99) mg/dL Calcium 9.7 (8.4-10.2) mg/dL AST 22 (14-36) U/L ALT <6 L (9-52) U/L Alkaline Phosphatase 65 (38-126) U/L Total Protein 8.4 H (6.3-8.2) g/dL Albumin 4.7 (3.5-5.0) g/dL Current Medications Generic Name Dose Route Start Last Admin Trade Name Freq PRN Reason Stop Dose Admin Acetaminophen 650 mg 03/19/19 18:20 Tylenol Tab PO Q6HR PRN Mild Pain or Fever > 100.5 Amlodipine Besylate 5 mg 03/20/19 11:00 Norvasc PO DAILY SARAI Aspirin 81 mg 03/20/19 09:00 03/20/19 08:24 Aspirin PO 81 mg DAILY SARAI Administration Clonazepam 0.5 mg 03/19/19 18:19 03/20/19 08:24 Klonopin PO 0.5 mg TID PRN Administration Anxiety Hydralazine HCl 10 mg 03/19/19 18:57 Apresoline IVP Q6HR PRN Blood Pressure - High Hydromorphone HCl 0.5 mg 03/19/19 18:20 Dilaudid IVP Q3HR PRN Moderate Pain Sodium Chloride 1,000 mls @ 50 mls/hr 03/19/19 18:30 03/20/19 07:04 Saline 0.9% IV Not Given .Q20H [facility] Metoprolol Tartrate 25 mg 03/20/19 21:00 Lopressor PO BID SARAI Naloxone HCl 0.2 mg 03/19/19 18:20 Narcan IV Q2M PRN Opioid Reversal Nitroglycerin 0.4 mg 03/19/19 18:19 Nitrostat SUBLINGUAL Q5M PRN Chest Pain Carbidopa/Levodopa [ 2 cap 03/19/19 20:00 03/20/19 10:42 Rytary Er 48.75 Mg- PO Not Given 195 Mg Cap] 5XD SARAI Intake and Output 03/19/19 03/20/19 03/20/19 22:59 06:59 14:59 Intake Total 600 Balance 600 Intake: Amount of Fluid Infused ( 600 ml) Other: Voiding Method Toilet # Voids 1 Weight 52.5 kg 03/19/19 14:51 03/19/19 14:51
[2019-03-20 12:41] VITALS: PULSE 47; RESP 18; TEMP 97.8
[2019-03-20 12:42] VITALS: BP 155/65
[2019-03-20] MEDS ORDERED: METOPROLOL TARTRATE 25 MG TAB PO SCH (21:00)
--- NOTE | 2019-03-21 00:34 | P.HPIM ---
History of Present Illness H&P Date: 03/20/19 Chief Complaint: Chest pain History of presenting complaint: This is a pleasant 77-year-old patient whose chronic stable medical conditions include coronary artery disease, hypertension, primary James arthritis, Parkinson disease causing peripheral neuropathy, irritable bowel syndrome, anxiety. Patient on bowel movement is about once a week. Patient is here with her sister. Patient also can about a another sister. Patient presented for chest pain wasn't on and off for some time. Also some slight shortness of breath. No fevers or chills. Appetite is fair. She also had been using a box spray around the house and afterwards felt a bit short of breath and choking sensation. Because it is these multiple symptoms she decided to come to the hospital. Cardiology was consulted. Review of systems: GEN.: Tired EYES: None HEENT: None NECK: None RESPIRATORY: None CARDIOVASCULAR: As above GASTROINTESTINAL: As above GENITOURINARY: None MUSCULOSKELETAL: Pain in the joints LYMPHATICS: None HEMATOLOGICAL: None PSYCHIATRY: None NEUROLOGICAL: Use a walker Social history: . Sister Ava helps out at home. Has both a cane and walker and a wheelchair. No smoking. No alcohol. Family history: Father of kidney cancer Physical examination: VITAL SIGNS: 98.1, 74, 16, 208/85, 100% GENERAL: BMI 21.2, sitting up, at the edge of the bed, anxious. EYES: Pupils equal. Conjunctiva normal. HEENT: External appearance of nose and ears normal, oral cavity grossly normal. NECK: JVD not raised; masses not palpable. HEART: First and second heart sounds are normal; no edema. LUNGS: Respiratory rate normal; clear to auscultation. ABDOMEN: Soft, nontender, liver spleen not palpable, no masses palpable. PSYCH: Alert and oriented x3; mood and affect normal. NEUROLOGICAL: Cranial nerves grossly intact; no facial asymmetry, power and sensation grossly intact. LYMPHATICS: No lymph nodes palpable in the axilla and neck Investigations, reviewed in the clinical context: White count 5.6, hemoglobin 12.8, platelets 231, potassium 4.9, bun 31, creatinine 0.64 Troponin I 3 less than 0.012 EKG tracing personally reviewed by me, shows tall peaked S waves. Chest x-ray film shows tubular heart, no obvious infiltrates Assessment: -Acute bronchospasm/chest tightness from using a insect spray, that symptom was self-limiting -Noncardiac sounding chest painn- essential hypertension -Coronary artery disease with prior history of stent with-primary James arthritis -Parkinson disease with peripheral neuropathy -Irritable bowel syndrome -Chronic constipation N -anxiety disorder not otherwise specified N -essential hypertension, accelerated Plan: Home medications resumed. Cardiology was consulted. Care was discussed with basis to the bedside. Patient put on telemetry. Respiratory symptoms she presented with already improved. Blood pressure medication. Just it. Past Medical History Past Medical History: Coronary Artery Disease (CAD), Cancer, Chest Pain / Angina, CVA/TIA, Hypertension, Myocardial Infarction ([place]), Musculoskeletal Disorder, Neurologic Disorder, Osteoarthritis (OA), Renal Disease Additional Past Medical History / Comment(s): Parkinson's disease with bilateral feet neuropathy, CVA with slight L sided weakness, cardiac murmur, "leaky heart valves", herniated cervical discx with cervical pain, back pain with bilateral s ciatica, L shoulder cuff tear and joint is frozen, L breast cancer with lumpectomy, R and L nares skin cancer removal, cyst on L kidney, mild kidney dysfunction, UTIs, PUD, IBS, benign colon polyp, vitamin B12 and D deficiency, anemia, L leg varicosities, migraines many years ago, , R ear pain and had MRI recently, past L leg and L ankle fractures. "R carotid plugged" Last Myocardial Infarction Date:: 2016 History of Any Multi-Drug Resistant Organisms: None Reported Past Surgical History: Adenoidectomy, Appendectomy, Bladder Surgery, Breast Surgery, Section, Cholecystectomy, Heart Catheterization, Heart Cat heterization With Stent, Hysterectomy, Orthopedic Surgery, Tonsillectomy Additional Past Surgical History / Comment(s): 2017 PCI with stent to RCA, L breast lumpectomy, bilateral cataract removals with lens implants, L knee arthroscopy, L foot neuroma removed, R nares skin cancer removal, bladder suspension, sinus surgery, colonoscopy/benign polypectomy, angiogram. Past Anesthesia/Blood Transfusion Reactions: No Reported Reaction Date of Last Stent Placement:: 2016 Past Psychological History: Anxiety Smoking Status: Never smoker Past Alcohol Use History: None Reported Past Drug Use History: None Reported - Past Family History Mother Additional Family Medical History / Comment(s): Mother at age 85 with history of coronary artery disease status post CABG and hypertension. Brother(s) Additional Family Medical History / Comment(s): Patient has a brother who from prostate cancer. Sister(s) Additional Family Medical History / Comment(s): Patient has lost 2 sisters one to pancreatic cancer and one to lung cancer. Son(s) Additional Family Medical History / Comment(s): She has had one son from brain tumor. Father Family Medical History: Cancer Additional Family Medical History / Comment(s): Father at age 56 from kidney cancer. Medications and Allergies Home Medications Medication Instructions Recorded Confirmed Type Aspirin EC [Ecotrin Low Dose] 81 mg PO DAILY 06/27/17 03/19/19 History clonazePAM [KlonoPIN] 0.5 mg PO TID PRN 06/27/17 03/19/19 History Carbidopa/Levodopa [Rytary ER 2 cap PO 5XD 02/22/18 03/19/19 History 48.75 mg-195 mg Cap] Nitroglycerin Sl Tabs [Nitrostat] 0.4 mg SUBLINGUAL Q5M PRN #25 tab 02/23/18 03/19/19 Rx Metoprolol Tartrate [Lopressor] 25 mg PO BID #60 tab 03/20/19 Rx Psyllium Husk 100% [Metamucil 6 gm PO BID #60 packet 03/20/19 Rx Packet] amLODIPine [Norvasc] 5 mg PO DAILY #30 tab 03/20/19 Rx Allergies Allergy/AdvReac Type Severity Reaction Status Date / Time codeine Allergy Severe RASH/VIRA Verified 03/19/19 15:38 adhesive Allergy Unknown Verified 03/19/19 15:38 clarithromycin [From Biaxin] Allergy Unknown Verified 03/19/19 15:38 kiwi Allergy Unknown Verified 03/19/19 15:38 latex Allergy Unknown Verified 03/19/19 15:38 levofloxacin [From Levaquin] Allergy Rash/Hives Verified 03/19/19 15:38 morphine Allergy Unknown Verified 03/19/19 15:38 nifedipine [From Procardia] Allergy Unknown Verified 03/19/19 15:38 amantadine AdvReac SHAKINESS Verified 03/19/19 15:38 methylcellulose Allergy Dyspnea Uncoded 12/22/18 07:22 Physical Exam Vitals: Vital Signs Temp Pulse Pulse Resp BP BP Pulse Ox 03/20/19 08:00 98.1 F 72 16 158/67 99 03/20/19 07:53 53 L 03/20/19 04:00 98.2 F 53 L 16 142/66 94 L 03/20/19 01:30 98.4 F 72 16 207/80 96 03/20/19 00:00 57 L 15 03/19/19 23:00 76 16 131/56 96 03/19/19 22:00 74 16 149/58 94 L 03/19/19 21:00 62 18 121/59 94 L 03/19/19 20:00 78 18 163/68 95 03/19/19 19:00 75 15 155/51 98 03/19/19 18:50 76 19 165/66 98 03/19/19 18:40 72 9 L 179/77 99 03/19/19 18:30 73 20 160/64 98 03/19/19 18:20 76 13 178/110 99 03/19/19 18:12 76 18 213/85 98 03/19/19 18:10 70 19 205/80 03/19/19 18:00 64 20 196/77 03/19/19 17:50 64 16 196/77 03/19/19 17:40 67 15 196/77 03/19/19 17:30 66 18 207/86 03/19/19 17:20 70 16 207/86 03/19/19 17:10 71 18 198/80 03/19/19 17:00 74 17 183/74 03/19/19 16:50 75 20 183/74 03/19/19 16:40 74 16 183/74 03/19/19 16:30 75 18 186/66 03/19/19 16:20 70 16 186/66 03/19/19 16:10 74 16 186/66 03/19/19 16:00 75 17 198/77 03/19/19 15:50 75 20 198/77 03/19/19 15:40 78 20 198/77 03/19/19 15:30 64 16 199/79 03/19/19 15:20 73 17 199/79 03/19/19 15:10 71 19 199/79 03/19/19 15:00 75 19 03/19/19 14:50 74 20 03/19/19 14:40 71 15 03/19/19 14:30 194/83 0629/19 14:20 70 15 03/19/19 14:10 74 16 03/19/19 14:00 75 20 03/19/19 13:50 77 16 03/19/19 13:41 21 03/19/19 13:32 98.1 F 74 16 03/19/19 13:30 78 Intake and Output 03/19/19 03/20/19 03/20/19 22:59 06:59 14:59 Intake Total 600 Balance 600 Intake: Amount of Fluid Infused ( 600 ml) Other: Voiding Method Toilet # Voids 1 Weight 52.5 kg Results CBC & Chem 7: 03/19/19 14:51 03/19/19 14:51 Labs: Abnormal Lab Results - Last 24 Hours (Table) 03/19/19 03/19/19 Range/Units 14:51 15:45 BUN 31 H (7-17) mg/dL ALT <6 L (9-52) U/L Total Protein 8.4 H (6.3-8.2) g/dL Ur Leukocyte Esterase Moderate H (Negative) Urine WBC 7 H (0-5) /hpf Thrombosis Risk Factor Assmnt - Choose All That Apply Any of the Below Risk Factors Present?: Yes Each Factor Represents 1 point: Varicose veins Other Risk Factors: Yes Each Risk Factor Represents 3 Points: Age 75 years or older Other congenital or acquired thrombophilia - If yes, enter type in comment: No Thrombosis Risk Factor Assessment Total Risk Factor Score: 4 Thrombosis Risk Factor Assessment Level: Moderate Risk
--- NOTE | 2019-03-21 00:37 | P.DS ---
Providers Date of admission: 03/19/19 18:27 Expected date of discharge: 03/20/19 Attending physician: Jeyson Calderon Consults: 03/19/19 18:21 Consult Physician Routine Consulting Provider: Eliceo Lu Consult Reason/Comments: CP Do you want consulting provider notified?: Yes [facility] [place] [facility]: Discharge diagnosis: -Acute bronchospasm/chest tightness from using a insect spray, that symptom was self-limiting -Noncardiac sounding chest painn- essential hypertension -Coronary artery disease with prior history of stent with-primary James a rthritis -Parkinson disease with peripheral neuropathy -Irritable bowel syndrome -Chronic constipation N -anxiety disorder not otherwise specified N -essential hypertension, accelerated Hospital course This is a pleasant 77-year-old patient whose chronic stable medical conditions include coronary artery disease, hypertension, primary James arthritis, Parkinson disease causing peripheral neuropathy, irritable bowel syndrome, anxiety. Patient on bowel movement is about once a week. Patient is here with her sister. Patient also can about a another sister. Patient presented for chest pain wasn't on and off for some time. Also some slight shortness of breath. No fevers or chills. Appetite is fair. She also had been using a box spray around the house and afterwards felt a bit short of breath and choking sensation. Because it is these multiple symptoms she decided to come to the hospital. Cardiology was consulted. Cardiology did adjust patient's blood pressure medication. No further cardiac workup. Patient's is feeling back to baseline. Care was discussed with patient the sister. Consults: Dr. Cynthia bess from cardiology Physical examination: VITAL SIGNS: 97.8, 47, 18, 155-65, 96% room air GENERAL: BMI 21.2, sitting up, at the edge of the bed, anxious. EYES: Pupils equal. Conjunctiva normal. HEENT: External appearance of nose and ears normal, oral cavity grossly normal. NECK: JVD not raised; masses not palpable. HEART: First and second heart sounds are normal; no edema. LUNGS: Respiratory rate normal; clear to auscultation. ABDOMEN: Soft, nontender, liver spleen not palpable, no masses palpable. PSYCH: Alert and oriented x3; mood and affect normal. Investigations, reviewed in the clinical context: White count 5.6, hemoglobin 12.8, platelets 231, potassium 4.9, bun 31, creatinine 0.64 Troponin I 3 less than 0.012 EKG tracing personally reviewed by me, shows tall peaked S waves. Chest x-ray film shows tubular heart, no obvious infiltrates Disposition: Home Patient Condition at Discharge: Stable Plan - Discharge Summary Discharge Rx Participant: No New Discharge Prescriptions: New Psyllium Husk 100% [Metamucil Packet] 6 gm PO BID #60 packet amLODIPine [Norvasc] 5 mg PO DAILY #30 tab Continue Aspirin EC [Ecotrin Low Dose] 81 mg PO DAILY clonazePAM [KlonoPIN] 0.5 mg PO TID PRN PRN Reason: Anxiety Carbidopa/Levodopa [Rytary ER 48.75 mg-195 mg Cap] 2 cap PO 5XD Nitroglycerin Sl Tabs [Nitrostat] 0.4 mg SUBLINGUAL Q5M PRN #25 tab PRN Reason: Chest Pain Changed Metoprolol Tartrate [Lopressor] 25 mg PO BID #60 tab Discontinued Polyethylene Glycol 3350 [Miralax] 17 gm PO DAILY PRN PRN Reason: Diarrhea Discharge Medication List Aspirin EC [Ecotrin Low Dose] 81 mg PO DAILY 06/27/17 [History] clonazePAM [KlonoPIN] 0.5 mg PO TID PRN 06/27/17 [History] Carbidopa/Levodopa [Rytary ER 48.75 mg-195 mg Cap] 2 cap PO 5XD 02/22/18 [History] Nitroglycerin Sl Tabs [Nitrostat] 0.4 mg SUBLINGUAL Q5M PRN #25 tab 02/23/18 [Rx] Metoprolol Tartrate [Lopressor] 25 mg PO BID #60 tab 03/20/19 [Rx] Psyllium Husk 100% [Metamucil Packet] 6 gm PO BID #60 packet 03/20/19 [Rx] amLODIPine [Norvasc] 5 mg PO DAILY #30 tab 03/20/19 [Rx] Follow up Appointment(s)/Referral(s): Manish Rascon MD [STAFF PHYSICIAN] - 1 Week (Please c all to make appointment when office is open) Dia Rosenbaum MD [STAFF PHYSICIAN] - 1 Week (For informational purposes, no appointment to be sceduled at this time) Valentin Lugo MD [Primary Care Provider] - 1-2 days (Please make appointment when office is open) Patient Instructions/Handouts: Heart Healthy Diet (DC), Hypertension (DC) Discharge Disposition: HOME SELF-CARE
== END 2019-03-20 14:23 | disposition home or self-care (01) | DRG 918 ==
LOC: EC 13:25 → 3SCARD 18:27
PROVIDERS: ADMIT Hospitalist; ATTEND Hospitalist
DX: T60.91XA Toxic effect of unspecified pesticide, accidental (unintentional), initial encounter (principal); G20 Parkinson's disease; G62.9 Polyneuropathy, unspecified; E86.0 Dehydration; I08.3 Combined rheumatic disorders of mitral, aortic and tricuspid valves; J68.3 Other acute and subacute respiratory conditions due to chemicals, gases, fumes and vapors; I16.0 Hypertensive urgency; I12.9 Hypertensive chronic kidney disease with stage 1 through stage 4 chronic kidney disease, or unspecified chronic kidney disease; N18.9 Chronic kidney disease, unspecified; K58.1 Irritable bowel syndrome with constipation; E53.8 Deficiency of other specified B group vitamins; E55.9 Vitamin D deficiency, unspecified; I25.10 Atherosclerotic heart disease of native coronary artery without angina pectoris; F41.9 Anxiety disorder, unspecified; M19.90 Unspecified osteoarthritis, unspecified site; I25.2 Old myocardial infarction; Z79.82 Long term (current) use of aspirin; Z79.899 Other long term (current) drug therapy; Z86.73 Personal history of transient ischemic attack (TIA), and cerebral infarction without residual deficits; Z98.891 History of uterine scar from previous surgery; Z90.49 Acquired absence of other specified parts of digestive tract; Z95.5 Presence of coronary angioplasty implant and graft; Z90.710 Acquired absence of both cervix and uterus; Z85.828 Personal history of other malignant neoplasm of skin; Z85.3 Personal history of malignant neoplasm of breast; Z87.81 Personal history of (healed) traumatic fracture; Z87.440 Personal history of urinary (tract) infections; Z86.010 Personal history of colon polyps; Z86.69 Personal history of other diseases of the nervous system and sense organs; Z86.79 Personal history of other diseases of the circulatory system; Z98.42 Cataract extraction status, left eye; Z98.41 Cataract extraction status, right eye; Z96.1 Presence of intraocular lens; Z88.1 Allergy status to other antibiotic agents; Z88.5 Allergy status to narcotic agent; Z88.8 Allergy status to other drugs, medicaments and biological substances; Z91.018 Allergy to other foods; Z91.048 Other nonmedicinal substance allergy status; Z82.49 Family history of ischemic heart disease and other diseases of the circulatory system; Z80.42 Family history of malignant neoplasm of prostate; Z80.0 Family history of malignant neoplasm of digestive organs; Z80.1 Family history of malignant neoplasm of trachea, bronchus and lung; Z84.89 Family history of other specified conditions; Z80.51 Family history of malignant neoplasm of kidney
CPT/HCPCS: 36415; 71046; 74018; 80053; 81001; 83735; 84484; 85025; 85610; 85730; 93005; 96361; 96374; 99285

== ENCOUNTER → 2019-05-10 | Outpatient (CLI) | payer MEDICARE, BC ==
[2019-05-10 10:23] LABS: HCT 36.9 % (34.0-46.0); HGB 11.9 gm/dL (11.4-16.0); MCH 28.4 pg (25.0-35.0); MCHC 32.3 g/dL (31.0-37.0); MCV 87.7 fL (80.0-100.0); Mean Platelet Volume 6.6; Platelet Count 268 k/uL (150-450); RDW 14.8 % (11.5-15.5)
[2019-05-10 18:28] LABS: Anion Gap 8.6 mmol/L (4.00-12.00); Carbon Dioxide 29.4 mmol/L (21.6-31.8); Non-African American GFR(CKD) 71.6 (60.0-200.0); Potassium 4.6 mmol/L (3.5-5.5)
== END | disposition home or self-care (01) ==
LOC: LABWHC1 09:19
PROVIDERS: ATTEND Internal Medicine Interventional Cardiology
DX: Z01.812 Encounter for preprocedural laboratory examination (principal); I25.10 Atherosclerotic heart disease of native coronary artery without angina pectoris; I10 Essential (primary) hypertension
CPT/HCPCS: 36415; 80051; 82565; 84520; 85027

== ENCOUNTER 2019-05-11 10:39 | Day surgery (SDC) | payer MEDICARE, BC ==
[2019-05-04 11:24] VITALS: BMI 21.4
[~2019-05-11 10:39] MED LIST: ALPRAZolam 0.25 MG TAB PO PRN; ASPIRIN 325 MG TAB PO STA; SODIUM CHLORIDE 0.9% 1,000 ML in EMPTY BAG 1 BAG IV ONE
[2019-05-11] MEDS ORDERED: amLODIPine 5 MG TAB ONE (11:12)
[2019-05-11] MEDS ORDERED: ASPIRIN 81 MG ONE (11:15)
[2019-05-11 11:24] VITALS: RESP 18
[2019-05-11] MEDS ORDERED: MIDAZOLAM (PF) 2 MG/2 ML VIAL IV ONE (12:16)
[2019-05-11] MEDS ORDERED: LIDOCAINE 1% INJ 10MG/ML (20 ML MDV) SQ ONE (12:19)
[2019-05-11] MEDS ORDERED: hydrALAZINE HCL 20 MG/ML 1 ML VIAL IV ONE (12:30)
[2019-05-11] MEDS ORDERED: ENALAPRILAT 1.25 MG/ML 1 ML VIAL IV ONE (12:30)
[2019-05-11] MEDS ORDERED: IOPAMIDOL-370 100ML BTL INJ ONE (12:31)
[2019-05-11] MEDS ORDERED: RX INFO: IV CONTRAST WAS GIVEN 1 EACH MISC MISCELLANE PRN (12:37)
[2019-05-11] MEDS ORDERED: SODIUM CHLORIDE 0.9% 1,000 ML IV SCH (12:45)
--- NOTE | 2019-05-11 13:36 | CC ---
CARDIAC CATHETERIZATION REPORT DATE OF SERVICE: May 11, 2019 PERFORMING PHYSICIAN: Manish Rascon MD, anatomy and physiology instructor. PROCEDURE PERFORMED: 1. Selective right and left coronary angiogram. 2. Left heart catheterization. INDICATIONS: This is a 78-year-old female patient with history of CAD and prior stenting of the RCA, was experiencing symptoms of chest discomfort concerning for severe CAD. Because of that, a heart catheterization was advised. APPROACH: Right common femoral artery. COMPLICATION: None. LEVEL OF SEDATION: Moderate with sedation length of 16 minutes. PROCEDURES: After obtaining informed consent, the patient was brought to cardiac denture laboratory technician. The right common femoral artery was cannulated using micropuncture technique, and a micropuncture wire passed easily then I placed a 6-Wolof sheath. I did selective right and left coronary angiogram with JR4 and JL4 catheters. Left heart catheterization was performed using pigtail catheter. The procedure was completed without any complication. SELECTIVE CORONARY ANGIOGRAM: 1. The right coronary artery is a large caliber vessel and it is a dominant vessel and appeared to be angiographically normal. 2. The left main is angiographically normal. It bifurcates into the circumflex and left anterior descending artery. 3. The left circumflex is a large caliber vessel and it is a nondominant vessel. The left circumflex is normal. It gives rise into 2 obtuse marginal branches and they appear to be angiographically normal. 4. The LAD: The proximal LAD appeared to have mild disease only. The mid distal LAD appeared to have intermediate disease only. The LAD gives rise into a diagonal branch which seems to be angiographically normal. HEMODYNAMICS: The left ventricular end-diastolic pressure was 10 mmHg without significant gradient across the aortic valve. CONCLUSION: 1. Patent stent in the mid RCA. 2. Mild to moderate nonobstructive disease involving the LAD. POSTPROCEDURE MANAGEMENT: 1. Medical treatment. 2. Follow up with the patient. MMODL / IJN: [id number] /
[2019-05-11 15:16] VITALS: TEMP 96.4
[2019-05-11 16:59] VITALS: BP 120/56
[2019-05-11 17:00] VITALS: PULSE 58
== END 2019-05-11 18:48 | disposition home or self-care (01) ==
LOC: CATHCVL 10:39 → 1SOBS 12:37 → CATHCVL 18:48
PROVIDERS: ATTEND Internal Medicine Interventional Cardiology
DX: I25.110 Atherosclerotic heart disease of native coronary artery with unstable angina pectoris (principal); I10 Essential (primary) hypertension; Z95.5 Presence of coronary angioplasty implant and graft; E78.5 Hyperlipidemia, unspecified; I35.1 Nonrheumatic aortic (valve) insufficiency; E78.00 Pure hypercholesterolemia, unspecified; Z82.49 Family history of ischemic heart disease and other diseases of the circulatory system; Z79.82 Long term (current) use of aspirin; Z79.899 Other long term (current) drug therapy; Z88.1 Allergy status to other antibiotic agents; Z88.5 Allergy status to narcotic agent; Z88.8 Allergy status to other drugs, medicaments and biological substances; Z91.048 Other nonmedicinal substance allergy status
CPT/HCPCS: 93458

== ENCOUNTER → 2019-07-15 | Outpatient (CLI) | payer MEDICARE, BC ==
[2019-07-15 11:27] LABS: African American GFR (CKD) >90 (>60 ml/min/1.73 sqM); Blood Urea Nitrogen 31 mg/dL (7-17)
--- NOTE | 2019-07-15 13:34 | CT ---
EXAMINATION TYPE: CT angio neck DATE OF EXAM: 07/15/2019 COMPARISON: None HISTORY: bilateral carotid stenosis CT DLP: 177.2 mGycm CONTRAST: CTA cervical carotids is performed and with IV Contrast, patient injected with 65 mL of Isovue 370. Contrast CTA of the cervical carotids was performed 3-D reconstruction imaging obtained at a separate workstation. Right carotid system: Mild plaque is seen of the right common carotid artery. There is moderate calc ified plaque also noted at the carotid bulb and proximal right ICA. Estimated diameter reduction is approximately 80%. ECA is patent. Right vertebral artery appears unremarkable. Left carotid system: Mild plaque is seen of the left common carotid artery. There is mild calcified plaque also noted at the carotid bulb. Estimated diameter reduction is approximately 80%. ECA is p atent. Left vertebral artery appears unremarkable. Incidental small thyroid nodules noted. IMPRESSION: 1. Estimated diameter reduction Right ICA approximately 80% 2. Estimated diameter reduction Left ICA approximately 50%
== END ==
LOC: RADCTMAIN 10:51
PROVIDERS: ATTEND Thoracic Surgery (Cardiothoracic Vascular Surgery)
DX: I65.23 Occlusion and stenosis of bilateral carotid arteries (principal)
CPT/HCPCS: 82565; 84520; 70498; 36415; Q9967

== ENCOUNTER 2019-10-16 16:40 | Emergency (ER) | payer MEDICARE, BC ==
[2019-10-16 16:58] VITALS: PULSE 69; RESP 18; TEMP 97.4
[2019-10-16] MEDS ORDERED: ACETAMINOPHEN TAB 325 MG TAB PO STA (17:18)
[2019-10-16] MEDS ORDERED: DIPH,PERTUS(ACELL)TETVAC-LF 0.5 ML VIAL IM ONE (17:18)
--- NOTE | 2019-10-16 17:52 | CT ---
EXAMINATION TYPE: CT brain carmel montano DATE OF EXAM: 10/16/2019 COMPARISON: 02/23/2015 HISTORY: Fall with left sided head injury. Headache. Neck pain. CT DLP: 1207.2 mGycm Automated exposure control for dose reduction was used. There is mild cerebral atrophy. There is no mass effect nor midline shift. There is no sign of intrac ranial hemorrhage. There is no evidence of cerebral edema. There is mild enlargement of the ventricle s. Calvarium is intact. There is straightening of the cervical spine. There is some disc space narrowing at C4-5. The posteri or elements are intact. There is hypertrophic facet arthropathy in the mid cervical spine. The skull base is intact. There is no evidence of cervical spine fracture. IMPRESSION: Mild spondylosis at C4-5. Mild straightening. No change. Mild cerebral atrophy and hydrocephalus. No acute intracranial abnormality. No significant change.
--- NOTE | 2019-10-16 18:53 | XR ---
EXAMINATION TYPE: XR forearm LT DATE OF EXAM: 10/16/2019 COMPARISON: NONE HISTORY: Pain TECHNIQUE: 2 views FINDINGS: Elbow joint is intact. Wrist joint appears intact. I see no fracture nor dislocation. IMPRESSION: No acute abnormality of the left forearm.
--- NOTE | 2019-10-16 18:54 | XR ---
EXAMINATION TYPE: XR shoulder complete LT DATE OF EXAM: 10/16/2019 COMPARISON: NONE HISTORY: Pain TECHNIQUE: 3 views FINDINGS: I see no fracture nor dislocation. Glenohumeral joint is intact. There are no pathologic ca lcifications. IMPRESSION: Negative left shoulder exam.
--- NOTE | 2019-10-16 18:55 | XR ---
EXAMINATION TYPE: XR Hip Bilateral and AP pelvis DATE OF EXAM: 10/16/2019 COMPARISON: 02/23/2015 HISTORY: Pain TECHNIQUE: 5 views FINDINGS: Pelvic ring is intact. Proximal femurs and hip joints are intact. There is no sign of hip d ysplasia. Hip joint spaces are fairly normal for age. Sacroiliac joints are intact. IMPRESSION: Negative pelvis and bilateral hip exam. No fracture seen. No change.
--- NOTE | 2019-10-16 18:56 | XR ---
EXAMINATION TYPE: XR elbow complete LT DATE OF EXAM: 10/16/2019 COMPARISON: NONE HISTORY: Pain TECHNIQUE: 3 views FINDINGS: I see no fracture nor dislocation. Joint spaces are fairly normal. There is no sign of elbo w joint effusion. IMPRESSION: Negative left elbow exam. No fracture.
--- NOTE | 2019-10-16 18:57 | XR ---
EXAMINATION TYPE: XR chest 2V DATE OF EXAM: 10/16/2019 COMPARISON: 03/19/2019 HISTORY: Fall. Chest pain. TECHNIQUE: FINDINGS: Heart is normal. Lungs are clear of infiltrate. There is no pleural effusion or pneumothora x. There are clips from left breast surgery. There are no hilar masses. Thoracic spine is intact. Rib s appear intact. IMPRESSION: No cardiopulmonary disease. No change. Normal heart.
[2019-10-16] MEDS ORDERED: TOPICAL SKIN ADHESIVE 1 EACH AMP TOPICAL ONE (19:25)
--- NOTE | 2019-10-16 19:27 | ED ---
Fall HPI - General Chief Complaint: Fall Stated Complaint: Fall Time Seen by Provider: 10/16/19 16:55 Source: EMS Mode of arrival: EMS - History of Present Illness Initial Comments: The patient is a 79-year-old female past history of Parkinson's, hypertension and CVA who presents to the emergency department after she sustained a fall. She states that she was ambulating up a curb. She stepped up the curb and lost her balance and fell forward hitting the left side of her head on concrete. She denies a syncopal episode. No loss of consciousness with the blunt head trauma. She was unable to get up and ambulatory on her own. She did have assistance. EMS placed her in a c-collar and brought her to the emergency room for evaluation. She states that she fell onto her left side and therefore is having pain in her left arm and left hip. She denies any headaches or visual changes. No unilateral numbness or paralysis. She is acting normally per family. She denies being on any blood thinners. There are no alleviating, precitipating or modifying factors - Related Data Home Medications Medication Instructions Recorded Confirmed Aspirin EC [Ecotrin Low Dose] 81 mg PO DAILY 06/27/17 05/04/19 clonazePAM [KlonoPIN] 0.5 mg PO TID PRN 06/27/17 05/11/19 Carbidopa/Levodopa [Rytary ER 2 cap PO 5XD 02/22/18 05/11/19 48.75 mg-195 mg Cap] ALPRAZolam [Xanax] 0.125 mg PO Q12HR PRN 05/04/19 05/11/19 Famotidine [Pepcid] 20 mg PO DAILY 05/04/19 05/11/19 Isosorbide Mononitrate ER [Imdur] 15 mg PO DAILY 05/04/19 05/11/19 amLODIPine [Norvasc] 5 mg PO 1200 05/04/19 05/11/19 Ondansetron [Zofran] 4 mg PO Q8HR PRN 05/11/19 05/11/19 Previous Rx's Medication Instructions Recorded Nitroglycerin Sl Tabs [Nitrostat] 0.4 mg SUBLINGUAL Q5M PRN #25 tab 02/23/18 Metoprolol Tartrate [Lopressor] 25 mg PO BID #60 tab 03/20/19 Psyllium Husk 100% [Metamucil 6 gm PO BID #60 packet 03/20/19 Packet] Allergies Allergy/AdvReac Type Severity Reaction Status Date / Time codeine Allergy Severe RASH/VIRA Verified 10/16/19 16:58 adhesive Allergy Unknown Verified 10/16/19 16:58 clarithromycin [From Biaxin] Allergy Unknown Verified 10/16/19 16:58 Iodinated Contrast Media Allergy Rash/Hives/ Verified 10/16/19 16:58 [Iodinated Contrast- Oral headache and IV Dye] kiwi Allergy Unknown Verified 10/16/19 16:58 latex Allergy Unknown Verified 10/16/19 16:58 levofloxacin [From Levaquin] Allergy Rash/Hives Verified 10/16/19 16:58 morphine Allergy Unknown Verified 10/16/19 16:58 nifedipine [From Procardia] Allergy Unknown Verified 10/16/19 16:58 amantadine AdvReac SHAKINESS Verified 10/16/19 16:58 banana AdvReac Nausea & Verified 10/16/19 16:58 Vomiting methylcellulose Allergy Dyspnea Uncoded 05/04/19 11:06 Review of Systems ROS Statement: Those systems with pertinent positive or pertinent negative responses have been documented in the HPI. ROS Other: All systems not noted in ROS Statement are negative. Past Medical History Past Medical History: Coronary Artery Disease (CAD), Cancer, Chest Pain / Angina, CVA/TIA, Hypertension, Myocardial Infarction ([place]), Musculoskeletal Disorder, Neurologic Disorder, Osteoarthritis (OA) Additional Past Medical History / Comment(s): Parkinson's disease with bilateral feet neuropathy, CVA with slight L sided weakness, cardiac murmur, "leaky heart valves", herniated cervical disc with cervical pain, back pain with bilateral sciatica, L shoulder cuff tear and joint is frozen, hx L breast cancer, R and L nares skin cancer , UTIs, vitamin B12 and D deficiency, hx anemia, varicose veins, migraines many years ago, , "Rt carotid plugged" , frequent nausea, constipation, hx pancreatitis, Last Myocardial Infarction Date:: 2016 History of Any Multi-Drug Resistant Organisms: None Reported Past Surgical History: Adenoidectomy, Appendectomy, Bladder Surgery, Breast Surgery, Section, Cholecystectomy, Heart Catheterization, Heart Catheterization With Stent, Hysterectomy, Orthopedic Surgery, Tonsillectomy Additional Past Surgical History / Comment(s): 2 cardiac stents,, L breast lumpectomy x 2, bilateral cataract removals with lens implants, L knee arthroscopy, L foot neuroma removed, R nares skin cancer removal, bladder kim spension, sinus surgery, colonoscopy, angiogram. Past Anesthesia/Blood Transfusion Reactions: Motion Sickness Date of Last Stent Placement:: 2016 Past Psychological History: No Psychological Hx Reported Smoking Status: Never smoker - Past Family History Brother(s) Family Medical History: Cancer, Deep Vein Thrombosis (DVT) Sister(s) Family Medical History: Cancer Son(s) Family Medical History: Cancer Additional Family Medical History / Comment(s): gliooblastoma General Exam Limitations: no limitations General appearance: alert, in no apparent distress Head exam: Present: normocephalic, other (small skin tear left forearm measuring 2.5 x 0.5 cm. No deep structure involvement. ) Eye exam: Present: normal appearance, PERRL, EOMI. Absent: scleral icterus, conjunctival injection, periorbital swelling ENT exam: Present: normal exam, mucous membranes moist Neck exam: Present: normal inspection. Absent: tenderness, meningismus, lymphadenopathy Respiratory exam: Present: normal lung sounds bilaterally. Absent: respiratory distress, wheezes, rales, rhonchi, stridor Cardiovascular Exam: Present: regular rate, normal rhythm, normal heart sounds. Absent: systolic murmur, diastolic murmur, rubs, gallop, clicks GI/Abdominal exam: Present: soft, normal bowel sounds. Absent: distended, tenderness, guarding, rebound, rigid Extremities exam: Present: normal inspection, full ROM, tenderness (left dorsal forearm and left shoulder to palpation. Patient moves all 4 extremities and all joints without restriction. She is ambulatory to the bathroom. Denies numbness, tingling or paralysis), normal capillary refill. Absent: pedal edema, joint swelling, calf tenderness Back exam: Present: normal inspection Neurological exam: Present: alert, oriented X3, CN II-XII intact Psychiatric exam: Present: normal affect, normal mood Skin exam: Present: warm, dry, intact, normal color. Absent: rash Course Vital Signs 10/16/19 16:51 Temperature 97.4 F L Pulse Rate 69 Respiratory 18 Rate O2 Sat by Pulse 97 Oximetry Medical Decision Making - Medical Decision Making Upon arrival the patient was placed in room 1. A thorough history and physical exam was performed. The patient does have a small skin tear noted to the left forehead. She is in a c-collar. I did recommend a CT of the patient's head and cervical spine. We also completed an x-ray of the patient's left shoulder, left elbow, left forearm, bilateral hips and pelvis and chest x-ray. Review of the imaging demonstrates no acute fractures. I did use exofin to reapproximate the patient's skin tear. She is able to get up and ambulate after her c-collar is removed. I discussed diagnosis, differential and treatment options. The patient feels comfortable going home at this time and is steady on her feet. She felt a primary care doctor in 2-4 days for reevaluation. Return to the emergency department for any new worsening symptoms. Patient was then discharged home in stable condition Disposition Clinical Impression: Fall, Blunt head trauma, Forehead abrasion Disposition: HOME SELF-CARE Condition: Stable Instructions (If sedation given, give patient instructions): Fall Prevention for Older Adults (ED) Additional Instructions: Please follow up with your primary care doctor in 2 to 4 days. Return to the emergency room for any new worsening symptoms Is patient prescribed a controlled substance at d/c from ED?: No Referrals: Yobani Glaser DO [Primary Care Provider] - 1-2 days Time of Disposition: 19:26
== END 2019-10-16 19:48 | disposition home or self-care (01) ==
LOC: EC 16:40
DX: S00.81XA Abrasion of other part of head, initial encounter (principal); Z23 Encounter for immunization; I25.119 Atherosclerotic heart disease of native coronary artery with unspecified angina pectoris; I10 Essential (primary) hypertension; I25.2 Old myocardial infarction; Z79.82 Long term (current) use of aspirin; Z79.899 Other long term (current) drug therapy; Z88.5 Allergy status to narcotic agent; Z91.048 Other nonmedicinal substance allergy status; Z88.1 Allergy status to other antibiotic agents; Z91.040 Latex allergy status; Z91.018 Allergy to other foods; Z88.8 Allergy status to other drugs, medicaments and biological substances; Z86.73 Personal history of transient ischemic attack (TIA), and cerebral infarction without residual deficits; Z95.5 Presence of coronary angioplasty implant and graft; Z85.828 Personal history of other malignant neoplasm of skin; W18.09XA Striking against other object with subsequent fall, initial encounter
CPT/HCPCS: 70450; 71046; 72125; 73521; 90471; 90715; 99284

== ENCOUNTER 2021-10-20 18:11 | Emergency (ER) | payer MEDICARE, BC ==
[2021-10-20] MEDS ORDERED: FAMOTIDINE 20 MG/2 ML VIAL IV STA (18:37)
[2021-10-20] MEDS ORDERED: methylPREDNISolone SOD SUCCI 125 MG/2 ML VIAL IV STA (18:37)
--- NOTE | 2021-10-20 19:26 | ED ---
Allergic Reaction HPI - General Chief complaint: Allergic Reaction Stated complaint: ALLERGIC REACTION Time Seen by Provider: 10/20/21 18:19 Source: EMS Mode of arrival: EMS Limitations: no limitations - History of Present Illness Initial Comments: 81-year-old female with multiple medical conditions including Parkinson's, CVA presents emergency department for ALLERGIC reaction. Patient reports that she was at home when she ate an entire bag of shrimp. She does have a shellfish ALLERGY however states she normally tolerates shrimp in small amounts. Approximately one hour after eating she felt as if her airway was closing off. She felt flushed in the face and short of breath. She called the pharmacist to ask how much Benadryl she should take however they recommended that she call an ambulance. Upon EMS arrival she refuses an IV. They did give her 50 mg of Benadryl IM. Patient denies eating any other foods at this time. No hives. No nausea or vomiting. Patient denies any chest pain. No other alleviating, precipitating or modifying factors - Related Data Home Medications Medication Instructions Recorded Confirmed Aspirin EC [Ecotrin Low Dose] 81 mg PO DAILY 06/27/17 05/04/19 clonazePAM [KlonoPIN] 0.5 mg PO TID PRN 06/27/17 05/11/19 Carbidopa/Levodopa [Rytary ER 2 cap PO 5XD 02/22/18 05/11/19 48.75 mg-195 mg Cap] ALPRAZolam [Xanax] 0.125 mg PO Q12HR PRN 05/04/19 05/11/19 Famotidine [Pepcid] 20 mg PO DAILY 05/04/19 05/11/19 Isosorbide Mononitrate ER [Imdur] 15 mg PO DAILY 05/04/19 05/11/19 amLODIPine [Norvasc] 5 mg PO 1200 05/04/19 05/11/19 Ondansetron [Zofran] 4 mg PO Q8HR PRN 05/11/19 05/11/19 Previous Rx's Medication Instructions Recorded Nitroglycerin Sl Tabs [Nitrostat] 0.4 mg SUBLINGUAL Q5M PRN #25 tab 02/23/18 Metoprolol Tartrate [Lopressor] 25 mg PO BID #60 tab 03/20/19 Psyllium Husk 100% [Metamucil 6 gm PO BID #60 packet 03/20/19 Packet] EPINEPHrine (Auto Inject) [Epipen] 0.3 mg IM ONCE PRN #1 each 10/20/21 Allergies Allergy/AdvReac Type Severity Reaction Status Date / Time codeine Allergy Severe RASH/VIRA Verified 10/16/19 16:58 adhesive Allergy Unknown Verified 10/16/19 16:58 clarithromycin [From Biaxin] Allergy Unknown Verified 10/16/19 16:58 Iodinated Contrast Media Allergy Rash/Hives/ Verified 10/16/19 16:58 [Iodinated Contrast- Oral headache and IV Dye] kiwi Allergy Unknown Verified 10/16/19 16:58 latex Allergy Unknown Verified 10/16/19 16:58 levofloxacin [From Levaquin] Allergy Rash/Hives Verified 10/16/19 16:58 morphine Allergy Unknown Verified 10/16/19 16:58 nifedipine [From Procardia] Allergy Unknown Verified 10/16/19 16:58 amantadine AdvReac SHAKINESS Verified 10/16/19 16:58 banana AdvReac Nausea & Verified 10/16/19 16:58 Vomiting methylcellulose Allergy Dyspnea Uncoded 05/04/19 11:06 Review of Systems ROS Statement: Those systems with pertinent positive or pertinent negative responses have been documented in the HPI. ROS Other: All systems not noted in ROS Statement are negative. Past Medical History Past Medical History: Coronary Artery Disease (CAD), Cancer, Chest Pain / Angina, CVA/TIA, Hypertension, Myocardial Infarction ([place]), Musculoskeletal Disorder, Neurologic Disorder, Osteoarthritis (OA) Additional Past Medical History / Comment(s): Parkinson's disease with bilateral feet neuropathy, CVA with slight L sided weakness, cardiac murmur, "leaky heart valves", herniated cervical disc with cervical pain, back pain with bilateral sciatica, L shoulder cuff tear and joint is frozen, hx L breast cancer, R and L nares skin cancer , UTIs, vitamin B12 and D deficiency, hx anemia, varicose veins, migraines many years ago, , "Rt carotid plugged" , frequent nausea, constipation, hx pancreatitis, Last Myocardial Infarction Date:: 2016 History of Any Multi-Drug Resistant Organisms: None Reported Past Surgical History: Adenoidectomy, Appendectomy, Bladder Surgery, Breast Surgery, Section, Cholecystectomy, Heart Catheterization, Heart Catheterization With Stent, Hysterectomy, Orthopedic Surgery, Tonsillectomy Additional Past Surgical History / Comment(s): 2 cardiac stents,, L breast lumpectomy x 2, bilateral cataract removals with lens implants, L knee arthroscopy, L foot neuroma removed, R nares skin cancer removal, bladder suspension, sinus surgery, colonoscopy, angiogram. Past Anesthesia/Blood Transfusion Reactions: Motion Sickness Date of Last Stent Placement:: 2016 Past Psychological History: No Psychological Hx Reported Smoking Status: Never smoker Past Alcohol Use History: None Reported Past Drug Use History: None Reported - Past Family History Brother(s) Family Medical History: Cancer, Deep Vein Thrombosis (DVT) Sister(s) Family Medical History: Cancer Son(s) Family Medical History: Cancer Additional Family Medical History / Comment(s): gliooblastoma General Exam Limitations: no limitations Course Vital Signs 10/20/21 10/20/21 18:14 19:44 Temperature 98.2 F 97.7 F Pulse Rate 76 71 Respiratory 16 18 Rate Blood Pressure 189/87 187/73 O2 Sat by Pulse 96 100 Oximetry Medical Decision Making - Medical Decision Making Upon arrival patient is placed into room 4. A thorough history and physical examination was performed. Upon arrival patient has no identifiable oral swelling. Floor of mouth is soft. No tongue swelling. No drooling, trismus, hoarseness or stridor. Patient has no hives. She does have an IV established by the nurse and is given 20 mg of Pepcid and 125 mg of Solu-Medrol. Patient is watched for an hour and a half and has no identifiable oral swelling upon multiple re-evaluations. Patient's is requesting discharge at this time. She will be given a prescription for a an EpiPen. She is instructed to take Benadryl every 6 hours for the next 2 days or a Claritin daily. I discussed prednisone treatment for the next several days however the patient states she has adverse reaction to oral steroids and would preferred not to take them at this time. She does have her visiting physician coming tomorrow. Instructed to keep this appointment. Return to the hospital for any worsening shortness of breath. Patient agreed to this. Some was at bedside and one to take his mom home. Patient discharged in stable condition Disposition Clinical Impression: Allergic reaction Disposition: HOME SELF-CARE Condition: Stable Instructions (If sedation given, give patient instructions): General Allergic Reaction (ED) Additional Instructions: Keep your appointment for tomorrow and have your home care doctor checkup on you. I recommend you take Benadryl every 6 hours or at least a Claritin daily for the next 2 days. You have been prescribed an EpiPen to keep on hand in the event that you have another ALLERGIC reaction. Return for any new or worsening symptoms Prescriptions: EPINEPHrine (Auto Inject) [Epipen] 0.3 mg IM ONCE PRN #1 each PRN Reason: Anaphylaxis Is patient prescribed a controlled substance at d/c from ED?: No Referrals: Valentin Lugo MD [Primary Care Provider] - 1-2 days Time of Disposition: 19:26
[2021-10-20 19:48] VITALS: BP 187/73; PULSE 71; RESP 18; TEMP 97.7
== END 2021-10-20 19:44 | disposition home or self-care (01) ==
LOC: EC 18:11
DX: T78.1XXA Other adverse food reactions, not elsewhere classified, initial encounter (principal); I25.10 Atherosclerotic heart disease of native coronary artery without angina pectoris; I10 Essential (primary) hypertension; I25.2 Old myocardial infarction; M19.90 Unspecified osteoarthritis, unspecified site; Z79.82 Long term (current) use of aspirin; Z88.5 Allergy status to narcotic agent; Z91.040 Latex allergy status; Z88.1 Allergy status to other antibiotic agents; Z86.73 Personal history of transient ischemic attack (TIA), and cerebral infarction without residual deficits; Z85.3 Personal history of malignant neoplasm of breast; Z85.828 Personal history of other malignant neoplasm of skin; Z87.440 Personal history of urinary (tract) infections; Z90.49 Acquired absence of other specified parts of digestive tract; Z90.710 Acquired absence of both cervix and uterus
CPT/HCPCS: 99284; 96374; 96375; J2930

== ENCOUNTER 2021-11-22 14:32 | Emergency (ER) | payer MEDICARE, BC ==
[2021-11-22 14:41] VITALS: TEMP 97.8
[2021-11-22] MEDS ORDERED: HYDROmorphone 1 MG/ML 1 ML SYRINGE IM STA (15:34)
--- NOTE | 2021-11-22 16:13 | ED ---
Fall HPI - General Chief Complaint: Fall Stated Complaint: fall Time Seen by Provider: 11/22/21 15:01 Source: patient Mode of arrival: EMS - History of Present Illness Initial Comments: Patient is a 81-year-old female who presents to the emergency department with a chief complaint of right hip pain due to fall. Patient reports she felt unsteady on her feet today due to Parkinson's and fell in her home on carpet. She did not hit her head. She is not on blood thinners. Patient reports right hip pain. Patient also reports pain due to previous fall in her home 2 weeks ago. Patient reports she felt unsteady on her feet and fell on her left hip and both knees. She denies head trauma. She states that her left hip, bilateral knees, and left foot/ankle have pain due to previous fall. Currently, patient reports she is unable to move her hips due to pain. She denies numbness or tingling in the lower extremities. She does mention a headache that started in the emergency room. She has no other complaints at this time including fever, chills, shortness of breath, chest pain, and abdominal pain. - Related Data Home Medications Medication Instructions Recorded Confirmed Aspirin EC [Ecotrin Low Dose] 81 mg PO DAILY 06/27/17 05/04/19 clonazePAM [KlonoPIN] 0.5 mg PO TID PRN 06/27/17 05/11/19 Carbidopa/Levodopa [Rytary ER 2 cap PO 5XD 02/22/18 05/11/19 48.75 mg-195 mg Cap] ALPRAZolam [Xanax] 0.125 mg PO Q12HR PRN 05/04/19 05/11/19 Famotidine [Pepcid] 20 mg PO DAILY 05/04/19 05/11/19 Isosorbide Mononitrate ER [Imdur] 15 mg PO DAILY 05/04/19 05/11/19 amLODIPine [Norvasc] 5 mg PO 1200 05/04/19 05/11/19 Ondansetron [Zofran] 4 mg PO Q8HR PRN 05/11/19 05/11/19 Previous Rx's Medication Instructions Recorded Nitroglycerin Sl Tabs [Nitrostat] 0.4 mg SUBLINGUAL Q5M PRN #25 tab 02/23/18 Metoprolol Tartrate [Lopressor] 25 mg PO BID #60 tab 03/20/19 Psyllium Husk 100% [Metamucil 6 gm PO BID #60 packet 03/20/19 Packet] EPINEPHrine (Auto Inject) [Epipen] 0.3 mg IM ONCE PRN #1 each 10/20/21 Allergies Allergy/AdvReac Type Severity Reaction Status Date / Time codeine Allergy Severe RASH/VIRA Verified 11/22/21 14:42 adhesive Allergy Unknown Verified 11/22/21 14:42 clarithromycin [From Biaxin] Allergy Unknown Verified 11/22/21 14:42 Iodinated Contrast Media Allergy Rash/Hives/ Verified 11/22/21 14:42 [Iodinated Contrast- Oral headache and IV Dye] kiwi Allergy Unknown Verified 11/22/21 14:42 latex Allergy Unknown Verified 11/22/21 14:42 levofloxacin [From Levaquin] Allergy Rash/Hives Verified 11/22/21 14:42 morphine Allergy Unknown Verified 11/22/21 14:42 nifedipine [From Procardia] Allergy Unknown Verified 11/22/21 14:42 amantadine AdvReac SHAKINESS Verified 11/22/21 14:42 banana AdvReac Nausea & Verified 11/22/21 14:42 Vomiting methylcellulose Allergy Dyspnea Uncoded 05/04/19 11:06 Review of Systems ROS Statement: Those systems with pertinent positive or pertinent negative responses have been documented in the HPI. ROS Other: All systems not noted in ROS Statement are negative. Past Medical History Past Medical History: Coronary Artery Disease (CAD), Cancer, Chest Pain / Angina, CVA/TIA, Hypertension, Myocardial Infarction ([place]), Musculoskeletal Disorder, Neurologic Disorder, Osteoarthritis (OA) Additional Past Medical History / Comment(s): Parkinson's disease with bilateral feet neuropathy, CVA with slight L sided weakness, cardiac murmur, "leaky heart valves", herniated cervical disc with cervical pain, back pain with bilateral sciatica, L shoulder cuff tear and joint is frozen, hx L breast cancer, R and L nares skin cancer , UTIs, vitamin B12 and D deficiency, hx anemia, varicose veins, migraines many years ago, , "Rt carotid plugged" , frequent nausea, constipation, hx pancreatitis, Last Myocardial Infarction Date:: 2016 History of Any Multi-Drug Resistant Organisms: None Reported Past Surgical History: Adenoidectomy, Appendectomy, Bladder Surgery, Breast Surgery, Section, Cholecystectomy, Heart Catheterization, Heart Catheterization With Stent, Hysterectomy, Orthopedic Surgery, Tonsillectomy Additional Past Surgical History / Comment(s): 2 cardiac stents,, L breast lumpectomy x 2, bilateral cataract removals with lens implants, L knee arthroscopy, L foot neuroma removed, R nares skin cancer removal, bladder suspension, sinus surgery, colonoscopy, angiogram. Past Anesthesia/Blood Transfusion Reactions: Motion Sickness Date of Last Stent Placement:: 2016 Past Psychological History: No Psychological Hx Reported Smoking Status: Never smoker Past Alcohol Use History: None Reported Past Drug Use History: None Reported - Past Family History Brother(s) Family Medical History: Cancer, Deep Vein Thrombosis (DVT) Sister(s) Family Medical History: Cancer Son(s) Family Medical History: Cancer Additional Family Medical History / Comment(s): gliooblastoma General Exam Limitations: no limitations, physical limitation General appearance: alert, in no apparent distress Head exam: Present: atraumatic, normocephalic, normal inspection Eye exam: Present: normal appearance, PERRL, EOMI. Absent: scleral icterus, conjunctival injection, periorbital swelling Neck exam: Present: normal inspection. Absent: tenderness Respiratory exam: Present: normal lung sounds bilaterally. Absent: respiratory distress, wheezes, rales, rhonchi, stridor Cardiovascular Exam: Present: regular rate, normal rhythm, normal heart sounds. Absent: systolic murmur, diastolic murmur, rubs, gallop, clicks GI/Abdominal exam: Present: soft, normal bowel sounds. Absent: distended, tenderness, guarding, rebound, rigid Extremities exam: Present: other (Right lower extremity is internally rotated. Tender to palpation of the right lateral hip and left lateral knee. No active range of motion with hip flexion and abduction. Ecchymosis of the left knee inferior to the patella) Neurological exam: Present: alert, oriented X3, CN II-XII intact Psychiatric exam: Present: normal affect, normal mood Skin exam: Present: warm, dry, intact, normal color. Absent: rash Course Vital Signs 11/22/21 11/22/21 14:35 16:23 Temperature 97.8 F Pulse Rate 73 91 Respiratory 16 18 Rate Blood Pressure 157/52 167/68 O2 Sat by Pulse 100 100 Oximetry Medical Decision Making - Medical Decision Making This is a 81 year-old female who presents with bilateral hip, left knee, and left ankle/foot pain after a fall today and 2 weeks ago. Thorough history and examination were performed. CT of the brain and C-spine without contrast reveals no acute intracranial hemorrhage, midline shift, or herniation and no acute traumatic bony injury of the cervical spine. X-rays reveal no acute fracture or dislocation and the pelvis either hip femur or knee. Left ankle and foot x-ray revealed no acute fracture or dislocation On reevaluation patient reports pain has improved. Results discussed with patient. Patient will be discharged with instruction to follow up with primary care provider and neurologist in one to 2 days. I did speak with patient and patient's son about fall precautions at home. Patient verbalizes understanding and is agreeable to plan. Dr. White is my attending. Disposition Clinical Impression: Fall Disposition: HOME SELF-CARE Condition: Good Instructions (If sedation given, give patient instructions): Fall Prevention for Older Adults (ED) Additional Instructions: You are a fall risk. It is important that you ask for help when transitioning and out of your wheelchair. Take Tylenol as needed for pain. Follow-up with primary care provider and neurologist in one to 2 days. Turn to the emergency department if you experience new, concerning, or worsening symptoms. Is patient prescribed a controlled substance at d/c from ED?: No Referrals: Valentin Lugo MD [Primary Care Provider] - 1-2 days Time of Disposition: 17:20
--- NOTE | 2021-11-22 16:18 | CT ---
EXAMINATION TYPE: CT brain isabellaine wo con DATE OF EXAM: 11/22/2021 COMPARISON: CT dated 10/16/2019 HISTORY: Fall. CT DLP: 1293.4 mGycm Automated exposure control for dose reduction was used. TECHNIQUE: CT scan of the head and cervical spine are performed without contrast. FINDINGS: Brain: Brain volume loss changes, likely age-related. Scattered arterial atherosclerotic calcifications. No acute intracranial hemorrhage or gross acute cortical infarct. No midline shift or herniation. Unrema rkable basal cisterns, sella and CP angles. No gross space-occupying lesion, vasogenic edema or mass effect. No gross orbital abnormality. Mucosa l thickening of the left ethmoid air cells. No definite acute calvarial bone fracture identified. Cervical spine: Reversal of normal cervical curvature. No significant anterolisthesis or retrolisthesis. No definite vertebral body collapse or acute displaced fracture. Unremarkable atlantoaxial and atlantooccipital a rticulations. Degenerative changes of the cervical spine with multilevel opposing endplate osteophyto sis. Calcified C4-5 disc. Severe multilevel facet osteoarthropathy. Suspected spinal canal stenosis at C6-7 level. [id number] rate multilevel neuroforaminal stenosis is noted. Heterogeneous thyroid gland, please correlate with thyroid function tests and elective thyroid ultrasound results. Scattered arterial atherosclerotic ca lcifications. IMPRESSION: 1. No acute traumatic bony injury of the cervical spine. 2. No acute intracranial posttraumatic sequela or acute calvarial bone fracture. 3. Other incidental findings as described above.
--- NOTE | 2021-11-22 16:27 | XR ---
EXAMINATION TYPE: XR ankle complete LT, XR foot complete LT DATE OF EXAM: 11/22/2021 CLINICAL HISTORY: Pain from fall injury. TECHNIQUE: Frontal, lateral and oblique images of the left ankle and foot are obtained. COMPARISON: None. FINDINGS: Osseous structures are demineralized. There is no acute fracture/dislocation evident in the left ankle. The ankle mortise appears within normal limits. The overlying soft tissue appears unre markable. Small superior calcaneal spur. Osseous structures are demineralized which is noted in the lower radiographic sensitivity. In additio n there is flexion in the toes or hammertoe type deformity making evaluation of this level suboptimal . There is no acute fracture or dislocation evident in the left foot. The joint spaces in the left f oot are preserved. Overlying soft tissue is unremarkable. IMPRESSION: There is no acute fracture or dislocation in the left ankle or foot.
--- NOTE | 2021-11-22 16:31 | XR ---
EXAMINATION TYPE: XR Hip Bilateral and AP pelvis, XR femur bilateral, XR knee complete bilateral DATE OF EXAM: 11/22/2021 COMPARISON: Pelvic and bilateral hip x-rays October 16, 2019 HISTORY: Multiple falling injury with pain. TECHNIQUE: A single AP view of the pelvis is obtained. Two views of the bilateral hips and femurs are obtained. 3 views bilateral knees. FINDINGS: There is no acute fracture/dislocation evident in the pelvis. Symmetric narrowing and scle rosis of bilateral sacroiliac joints redemonstrated. Moderate axial joint space loss both hips again seen. Pubic symphysis is intact. Linear calcification or surgical clip right pelvis redemonstrated. Two views of bilateral hips show no acute fracture or dislocation. No focal lytic or sclerotic lesio n seen in the proximal femurs bilaterally. Mild overlying arterial vascular calcification redemonstra katy. Images of bilateral femurs show no acute displaced fracture. Mild to moderate medial arterial vascula r calcification is present bilaterally. Images of bilateral knees show no acute displaced fractures. Demineralization is present. There is mi ld to moderate tricompartment joint space loss. No significant joint effusions are present. IMPRESSION: There is no acute fracture or dislocation in the pelvis, either hip, femur, or knee.
[2021-11-22 17:49] VITALS: BP 146/50; PULSE 65; RESP 20
== END 2021-11-22 17:55 | disposition home or self-care (01) ==
LOC: EC 14:32
DX: M25.551 Pain in right hip (principal); M25.552 Pain in left hip; I10 Essential (primary) hypertension; I25.2 Old myocardial infarction; I25.10 Atherosclerotic heart disease of native coronary artery without angina pectoris; M19.90 Unspecified osteoarthritis, unspecified site; Z79.82 Long term (current) use of aspirin; Z88.5 Allergy status to narcotic agent; Z91.040 Latex allergy status; Z88.1 Allergy status to other antibiotic agents; Z85.3 Personal history of malignant neoplasm of breast; Z85.828 Personal history of other malignant neoplasm of skin; Z87.440 Personal history of urinary (tract) infections; Z90.49 Acquired absence of other specified parts of digestive tract; Z90.710 Acquired absence of both cervix and uterus; Z86.73 Personal history of transient ischemic attack (TIA), and cerebral infarction without residual deficits
CPT/HCPCS: 99284; 96372; 73562; 73521; 73552; 73610; 73630; 72125; 70450; J1170

== ENCOUNTER 2022-04-05 16:16 | Emergency (ER) | payer BC, MEDICARE ==
--- NOTE | 2022-04-05 16:50 | ED ---
General Adult HPI - General Chief complaint: Fall Stated complaint: FALL Time Seen by Provider: 04/05/22 16:29 Source: patient, EMS Mode of arrival: EMS Limitations: no limitations - History of Present Illness Initial comments: Dictation was produced using [employer] dictation software. please excuse any grammatical, word or spelling errors. Chief Complaint: 81-year-old female with past medical history of coronary artery disease, hypertension Parkinson's disease presents to the ER after fall and with 2 weeks of intermittent chest pain History of Present Illness: 81-year-old female she presents to the emergency department after fall. Patient states she fell 3 hours ago. She states she lives at home by herself she was using her walker had a sandwich and a beverage and when she found herself lying on the ground. Patient states she hit her head on her walker and landed on her right side. Since the fall patient has been complaining of left-sided chest pain and right knee pain. Patient has secondary complaint of intermittent episodes of chest pressure that radiates on the left upper extremity for the last 2 weeks. Patient reports history of myocardial infarction. No associated nausea or diaphoresis. She denies any chest pressure at this time. The ROS documented in this emergency department record has been reviewed and confirmed by me. Those systems with pertinent positive or negative responses have been documented in the HPI. All other systems are other negative and/or noncontributory. PHYSICAL EXAM: General Impression: Alert and oriented x3, not in acute distress Parkinson's facies HEENT: Normocephalic atraumatic, extra-ocular movements intact, pupils equal and reactive to light bilaterally, mucous membranes moist. Cardiovascular: Heart regular rate and rhythm Chest: Able to complete full sentences, no retractions, no tachypnea Abdomen: abdomen soft, non-tender, non-distended, no organomegaly Musculoskeletal: Pulses present and equal in all extremities, no peripheral edema, some ecchymoses over the right knee Motor: no focal deficits noted Neurological: CN II-XII grossly intact, no focal motor or sensory deficits noted Skin: Intact with no visualized rashes Psych: Normal affect and mood ED course: 81-year-old female presents emergency department for chief complaint of fall and intermittent chest pain. Her chest pain is atypical with typical features. Physical examination does not show any obvious traumatic injuries. Vital signs upon arrival are within acceptable limits. Laboratory evaluation obtained. CBC, coag panel is unremarkable. Metabolic panel is negative. Troponin is negative. Computed tomography scan of the head and C-spine shows no acute processes. Chest x-ray is nonacute. Pelvis x-rays nonacute. Knee x-rays nonacute. Patient observed in emergency department for approximately 3 hours patient is reevaluated at bedside at 7:30 PM found with stable medical condition. Patient has a shuffling gait and is prone to falls. Son concerned that patient may have tripped. Patient does not have any history of heart failure. Unlikely to be cardiac syncope. More likely to be a mechanical fall. Patient has no serious traumatic injuries. She does have knee contusion and chest strain versus chest contusion. Son also reports that patient has been complaining of chest symptoms sporadically over the last several months. This is not uncommon for patient to complain of episodes of chest pain. Disposition options were discussed. Given that the patient has strong cardiac history patient and family agreeable for second troponin to evaluate for ACS. patient care signed out to Dr. Davila. EKG interpretation: Ventricular rate 82, sinus rhythm,. 185, QS 96, QTC 418. No AR prolongation, no QTC prolongation, no ST or T-wave changes noted. Overall, this EKG is unremarkable - Related Data Home Medications Medication Instructions Recorded Confirmed Aspirin EC [Ecotrin Low Dose] 81 mg PO DAILY 06/27/17 05/04/19 clonazePAM [KlonoPIN] 0.5 mg PO TID PRN 06/27/17 05/11/19 Carbidopa/Levodopa [Rytary ER 2 cap PO 5XD 02/22/18 05/11/19 48.75 mg-195 mg Cap] ALPRAZolam [Xanax] 0.125 mg PO Q12HR PRN 05/04/19 05/11/19 Famotidine [Pepcid] 20 mg PO DAILY 05/04/19 05/11/19 Isosorbide Mononitrate ER [Imdur] 15 mg PO DAILY 05/04/19 05/11/19 amLODIPine [Norvasc] 5 mg PO 1200 05/04/19 05/11/19 Ondansetron [Zofran] 4 mg PO Q8HR PRN 05/11/19 05/11/19 Previous Rx's Medication Instructions Recorded Nitroglycerin Sl Tabs [Nitrostat] 0.4 mg SUBLINGUAL Q5M PRN #25 tab 02/23/18 Metoprolol Tartrate [Lopressor] 25 mg PO BID #60 tab 03/20/19 Psyllium Husk 100% [Metamucil 6 gm PO BID #60 packet 03/20/19 Packet] EPINEPHrine (Auto Inject) [Epipen] 0.3 mg IM ONCE PRN #1 each 10/20/21 Allergies Allergy/AdvReac Type Severity Reaction Status Date / Time codeine Allergy Severe RASH/VIRA Verified 11/22/21 14:42 adhesive Allergy Unknown Verified 11/22/21 14:42 clarithromycin [From Biaxin] Allergy Unknown Verified 11/22/21 14:42 Iodinated Contrast Media Allergy Rash/Hives/ Verified 11/22/21 14:42 [Iodinated Contrast- Oral headache and IV Dye] kiwi Allergy Unknown Verified 11/22/21 14:42 latex Allergy Unknown Verified 11/22/21 14:42 levofloxacin [From Levaquin] Allergy Rash/Hives Verified 11/22/21 14:42 morphine Allergy Unknown Verified 11/22/21 14:42 nifedipine [From Procardia] Allergy Unknown Verified 11/22/21 14:42 amantadine AdvReac SHAKINESS Verified 11/22/21 14:42 banana AdvReac Nausea & Verified 11/22/21 14:42 Vomiting methylcellulose Allergy Dyspnea Uncoded 05/04/19 11:06 Review of Systems ROS Statement: Those systems with pertinent positive or pertinent negative responses have been documented in the HPI. ROS Other: All systems not noted in ROS Statement are negative. Past Medical History Past Medical History: Coronary Artery Disease (CAD), Cancer, Chest Pain / Angina, CVA/TIA, Hypertension, Myocardial Infarction ([place]), Musculoskeletal Disorder, Neurologic Disorder, Osteoarthritis (OA) Additional Past Medical History / Comment(s): Parkinson's disease with bilateral feet neuropathy, CVA with slight L sided weakness, cardiac murmur, "leaky heart valves", herniated cervical disc with cervical pain, back pain with bilateral sciatica, L shoulder cuff tear and joint is frozen, hx L breast cancer, R and L nares skin cancer , UTIs, vitamin B12 and D deficiency, hx anemia, varicose veins, migraines many years ago, , "Rt carotid plugged" , frequent nausea, constipation, hx pancreatitis, Last Myocardial Infarction Date:: 2017 History of Any Multi-Drug Resistant Organisms: None Reported Past Surgical History: Adenoidectomy, Appendectomy, Bladder Surgery, Breast Surgery, Section, Cholecystectomy, Heart Catheterization, Heart Cathet erization With Stent, Hysterectomy, Orthopedic Surgery, Tonsillectomy Additional Past Surgical History / Comment(s): 2 cardiac stents,, L breast lumpectomy x 2, bilateral cataract removals with lens implants, L knee arthroscopy, L foot neuroma removed, R nares skin cancer removal, bladder suspension, sinus surgery, colonoscopy, angiogram. Past Anesthesia/Blood Transfusion Reactions: Motion Sickness Date of Last Stent Placement:: 2016 Past Psychological History: No Psychological Hx Reported Smoking Status: Never smoker Past Alcohol Use History: None Reported Past Drug Use History: None Reported - Past Family History Brother(s) Family Medical History: Cancer, Deep Vein Thrombosis (DVT) Sister(s) Family Medical History: Cancer Son(s) Family Medical History: Cancer Additional Family Medical History / Comment(s): gliooblastoma General Exam Limitations: no limitations Course Vital Signs 04/05/22 04/05/22 04/05/22 16:30 18:51 23:06 Temperature 97.8 F 97.9 F Pulse Rate 81 78 81 Respiratory 16 16 18 Rate Blood Pressure 186/79 179/79 162/67 O2 Sat by Pulse 99 97 95 Oximetry Medical Decision Making - Lab Data Result diagrams: 04/05/22 17:25 04/05/22 17:25 Lab Results 04/05/22 04/05/22 04/05/22 Range/Units 17:25 17:25 17:25 WBC 8.7 (3.8-10.6) k/uL RBC 4.55 (3.80-5.40) m/uL Hgb 12.5 (11.4-16.0) gm/dL Hct 40.2 (34.0-46.0) % MCV 88.4 (80.0-100.0) fL MCH 27.4 (25.0-35.0) pg MCHC 31.0 (31.0-37.0) g/dL RDW 13.6 (11.5-15.5) % Plt Count 198 (150-450) k/uL MPV 7.4 Neutrophils % 87 % Lymphocytes % 8 % Monocytes % 3 % Eosinophils % 1 % Basophils % 0 % Neutrophils # 7.5 (1.3-7.7) k/uL Lymphocytes # 0.7 L (1.0-4.8) k/uL Monocytes # 0.3 (0-1.0) k/uL Eosinophils # 0.1 (0-0.7) k/uL Basophils # 0.0 (0-0.2) k/uL PT (9.0-12.0) sec INR (<1.2) APTT (22.0-30.0) sec Sodium 140 (137-145) mmol/L Potassium 3.5 (3.5-5.1) mmol/L Chloride 107 (98-107) mmol/L Carbon Dioxide 23 (22-30) mmol/L Anion Gap 10 mmol/L BUN 32 H (7-17) mg/dL Creatinine 0.55 (0.52-1.04) mg/dL Est GFR (CKD-EPI)AfAm >90 (>60 ml/min/1.73 sqM) Est GFR (CKD-EPI)NonAf 90 (>60 ml/min/1.73 sqM) Glucose 110 H (74-99) mg/dL Calcium 8.7 (8.4-10.2) mg/dL Magnesium 1.8 (1.6-2.3) mg/dL Troponin I <0.012 (0.000-0.034) ng/mL 04/05/22 04/05/22 Range/Units 18:45 20:53 WBC (3.8-10.6) k/uL RBC (3.80-5.40) m/uL Hgb (11.4-16.0) gm/dL Hct (34.0-46.0) % MCV (80.0-100.0) fL MCH (25.0-35.0) pg MCHC (31.0-37.0) g/dL RDW (11.5-15.5) % Plt Count (150-450) k/uL MPV Neutrophils % % Lymphocytes % % Monocytes % % Eosinophils % % Basophils % % Neutrophils # (1.3-7.7) k/uL Lymphocytes # (1.0-4.8) k/uL Monocytes # (0-1.0) k/uL Eosinophils # (0-0.7) k/uL Basophils # (0-0.2) k/uL PT 11.0 (9.0-12.0) sec INR 1.0 (<1.2) APTT 22.9 (22.0-30.0) sec Sodium (137-145) mmol/L Potassium (3.5-5.1) mmol/L Chloride (98-107) mmol/L Carbon Dioxide (22-30) mmol/L Anion Gap mmol/L BUN (7-17) mg/dL Creatinine (0.52-1.04) mg/dL Est GFR (CKD-EPI)AfAm (>60 ml/min/1.73 sqM) Est GFR (CKD-EPI)NonAf (>60 ml/min/1.73 sqM) Glucose (74-99) mg/dL Calcium (8.4-10.2) mg/dL Magnesium (1.6-2.3) mg/dL Troponin I 0.040 H* (0.000-0.034) ng/mL Disposition Clinical Impression: Fall, Chest pain Disposition: HOME SELF-CARE Condition: Fair Instructions (If sedation given, give patient instructions): Fall Prevention for Older Adults (ED) Is patient prescribed a controlled substance at d/c from ED?: No Referrals: Valentin Lugo MD [Primary Care Provider] - 1-2 days
[2022-04-05 17:42] LABS: Basophils % (A) 0 %; Eosinophils # (A) 0.1 k/uL (0-0.7); Eosinophils % (A) 1 %; HCT 40.2 % (34.0-46.0); HGB 12.5 gm/dL (11.4-16.0); Lymphocytes # (A) 0.7 k/uL (1.0-4.8); Lymphocytes % (A) 8 %; MCH 27.4 pg (25.0-35.0); MCV 88.4 fL (80.0-100.0); Mean Platelet Volume 7.4; Monocytes # (A) 0.3 k/uL (0-1.0); Monocytes % (A) 3 %; Neutrophils # (A) 7.5 k/uL (1.3-7.7); Neutrophils % (A) 87 %; Platelet Count 198 k/uL (150-450); RBC 4.55 m/uL (3.80-5.40); RDW 13.6 % (11.5-15.5); WBC 8.7 k/uL (3.8-10.6)
[2022-04-05 17:48] LABS: African American GFR (CKD) >90 (>60 ml/min/1.73 sqM); Anion Gap 10 mmol/L; Blood Urea Nitrogen 32 mg/dL (7-17); Calcium 8.7 mg/dL (8.4-10.2); Carbon Dioxide 23 mmol/L (22-30); Chloride 107 mmol/L (98-107); Glucose 110 mg/dL (74-99); Magnesium 1.8 mg/dL (1.6-2.3); Non-African American GFR(CKD) 90 (>60 ml/min/1.73 sqM); Potassium 3.5 mmol/L (3.5-5.1); Sodium 140 mmol/L (137-145)
--- NOTE | 2022-04-05 17:49 | XR ---
EXAMINATION TYPE: XR knee complete RT DATE OF EXAM: 04/05/2022 COMPARISON: NONE HISTORY: Knee pain TECHNIQUE: 3 views FINDINGS: The patella is intact. I see no fracture nor dislocation. There is vascular calcification. No evidence of joint effusion. IMPRESSION: Negative right knee exam. No fracture.
--- NOTE | 2022-04-05 17:50 | XR ---
EXAMINATION TYPE: XR pelvis AP view DATE OF EXAM: 04/05/2022 COMPARISON: 11/22/2021 HISTORY: Fall. Pain TECHNIQUE: Single view FINDINGS: The pelvic ring appears intact. Proximal femurs and hip joints are intact. Sacroiliac joint s appear normal. There is mild vascular calcification IMPRESSION: No acute abnormality of the pelvis. No fracture. No change.
--- NOTE | 2022-04-05 17:55 | XR ---
EXAMINATION TYPE: XR chest 1V portable DATE OF EXAM: 04/05/2022 COMPARISON: 10/16/2019 HISTORY: Fall. Pain TECHNIQUE: FINDINGS: There is no heart failure nor confluent pneumonic infiltrate. Costophrenic angles are clear . There are no hilar masses. The bony thorax is intact. Pulmonary vascularity is normal. IMPRESSION: No active cardiopulmonary disease. Normal heart. No change.
--- NOTE | 2022-04-05 18:25 | CT ---
EXAMINATION TYPE: CT brain carmel remy con DATE OF EXAM: 04/05/2022 COMPARISON: 11/22/2021 HISTORY: PT fall, hx Parkinsons CT DLP: 1261.8 mGycm Automated exposure control for dose reduction was used. Images of the brain and cervical spine obtained with no contrast. There is mild cerebral cortical atrophy. There is no mass effect or midline shift. No sign of intracr anial hemorrhage. Calvarium is intact. Skull base is intact. There is normal aeration of the mastoid sinuses. There is straightening of the cervical spine and mild kyphotic curvature. There is mild disc space na rrowing at C4-5 and C5-6. Posterior elements are intact. There is hypertrophic multilevel cervical fa cet arthropathy. Prevertebral soft tissues are intact. IMPRESSION: Cerebral atrophy. No acute intracranial abnormality. No change. Mild cervical spondylotic changes. Straightening of the cervical spine. No change compared to old exa m. No fracture.
[2022-04-05 19:09] LABS: Partial Thromboplastin Time 22.9 sec (22.0-30.0)
[2022-04-05] MEDS ORDERED: HYDROmorphone 0.5 MG/0.5 ML SYRINGE IVP STA (22:14)
[2022-04-05] MEDS ORDERED: clonazePAM 0.5 MG TAB PO STA (22:15)
[2022-04-05 23:08] VITALS: BP 162/67; PULSE 81; RESP 18; TEMP 97.9
== END 2022-04-05 23:08 | disposition home or self-care (01) ==
LOC: EC 16:16
DX: R07.89 Other chest pain (principal); I25.2 Old myocardial infarction; I10 Essential (primary) hypertension; I25.10 Atherosclerotic heart disease of native coronary artery without angina pectoris; Z86.73 Personal history of transient ischemic attack (TIA), and cerebral infarction without residual deficits; Z88.5 Allergy status to narcotic agent; Z91.09 Other allergy status, other than to drugs and biological substances; Z88.1 Allergy status to other antibiotic agents; Z91.041 Radiographic dye allergy status; Z91.018 Allergy to other foods; Z91.040 Latex allergy status; Z88.8 Allergy status to other drugs, medicaments and biological substances; Z79.82 Long term (current) use of aspirin; W19.XXXA Unspecified fall, initial encounter; Y93.01 Activity, walking, marching and hiking
CPT/HCPCS: 36415; 93005; 80048; 83735; 84484; 85025; 85610; 85730; 72170; 73562; 71045; 72125; 70450; 99284; 96374; J1170

== ENCOUNTER 2023-11-07 16:30 | Emergency (ER) | payer BC, MEDICARE ==
[2023-11-07 16:58] VITALS: TEMP 97.8
--- NOTE | 2023-11-07 17:34 | ED ---
General Adult HPI - General Chief complaint: Extremity Injury, Upper Stated complaint: FALL Time Seen by Provider: 11/07/23 16:47 Source: patient, EMS Mode of arrival: EMS Limitations: no limitations - History of Present Illness Initial comments: 83-year-old female presenting to the ED with a chief complaint of fall. Patient is on baby aspirin. Per patient, normally uses a walker to ambulate. States prior to arrival was bending down to pick something up when she lost her balance causing her to fall onto her left side. Patient reports that she did hit her head however denies any LOC. Now notes headache, neck pain, left hip pain, right shoulder pain. No other injuries at this time. No other complaints. - Related Data Home Medications Medication Instructions Recorded Confirmed Aspirin EC [Ecotrin Low Dose] 81 mg PO DAILY 06/27/17 05/04/19 clonazePAM [KlonoPIN] 0.5 mg PO TID PRN 06/27/17 05/11/19 Carbidopa/Levodopa [Rytary ER 2 cap PO 5XD 02/22/18 05/11/19 48.75 mg-195 mg Cap] ALPRAZolam [Xanax] 0.125 mg PO Q12HR PRN 05/04/19 05/11/19 Famotidine [Pepcid] 20 mg PO DAILY 05/04/19 05/11/19 Isosorbide Mononitrate ER [Imdur] 15 mg PO DAILY 05/04/19 05/11/19 amLODIPine [Norvasc] 5 mg PO 1200 05/04/19 05/11/19 Ondansetron [Zofran] 4 mg PO Q8HR PRN 05/11/19 05/11/19 Previous Rx's Medication Instructions Recorded Nitroglycerin Sl Tabs [Nitrostat] 0.4 mg SUBLINGUAL Q5M PRN #25 tab 02/23/18 Metoprolol Tartrate [Lopressor] 25 mg PO BID #60 tab 03/20/19 Psyllium Husk 100% [Metamucil 6 gm PO BID #60 packet 03/20/19 Packet] EPINEPHrine (Auto Inject) [Epipen] 0.3 mg IM ONCE PRN #1 each 10/20/21 Allergies Allergy/AdvReac Type Severity Reaction Status Date / Time codeine Allergy Severe RASH/VIRA Verified 11/07/23 16:42 adhesive Allergy Unknown Verified 11/07/23 16:42 clarithromycin [From Biaxin] Allergy Unknown Verified 11/07/23 16:42 Iodinated Contrast Media Allergy Rash/Hives/ Verified 11/07/23 16:42 [Iodinated Contrast- Oral headache and IV Dye] kiwi Allergy Unknown Verified 11/07/23 16:42 latex Allergy Unknown Verified 11/07/23 16:42 levofloxacin [From Levaquin] Allergy Rash/Hives Verified 11/07/23 16:42 morphine Allergy Unknown Verified 11/07/23 16:42 nifedipine [From Procardia] Allergy Unknown Verified 11/07/23 16:42 amantadine AdvReac SHAKINESS Verified 11/07/23 16:42 banana AdvReac Nausea & Verified 11/07/23 16:42 Vomiting methylcellulose Allergy Dyspnea Uncoded 11/07/23 16:42 Review of Systems ROS Statement: Those systems with pertinent positive or pertinent negative responses have been documented in the HPI. ROS Other: All systems not noted in ROS Statement are negative. Past Medical History Past Medical History: Coronary Artery Disease (CAD), Cancer, Chest Pain / Angina, CVA/TIA, Hypertension, Myocardial Infarction ([place]), Musculoskeletal Disorder, Neurologic Disorder, Osteoarthritis (OA) Additional Past Medical History / Comment(s): Parkinson's disease with bilateral feet neuropathy, CVA with slight L sided weakness, cardiac murmur, "leaky heart valves", herniated cervical disc with cervical pain, back pain with bilateral sciatica, L shoulder cuff tear and joint is frozen, hx L breast cancer, R and L nares skin cancer , UTIs, vitamin B12 and D deficiency, hx anemia, varicose veins, migraines many years ago, , "Rt carotid plugged" , frequent nausea, constipation, hx pancreatitis, Last Myocardial Infarction Date:: 2016 History of Any Multi-Drug Resistant Organisms: None Reported Past Surgical History: Adenoidectomy, Appendectomy, Bladder Surgery, Breast Surgery, Section, Cholecystectomy, Heart Catheterization, Heart Catheterization With Stent, Hysterectomy, Orthopedic Surgery, Tonsillectomy Additional Past Surgical History / Comment(s): 2 cardiac stents,, L breast von mpectomy x 2, bilateral cataract removals with lens implants, L knee arthroscopy, L foot neuroma removed, R nares skin cancer removal, bladder suspension, sinus surgery, colonoscopy, angiogram. Past Anesthesia/Blood Transfusion Reactions: Motion Sickness Date of Last Stent Placement:: 2016 Past Psychological History: No Psychological Hx Reported Smoking Status: Never smoker Past Alcohol Use History: None Reported Past Drug Use History: None Reported - Past Family History Brother(s) Family Medical History: Cancer, Deep Vein Thrombosis (DVT) Sister(s) Family Medical History: Cancer Son(s) Family Medical History: Cancer Additional Family Medical History / Comment(s): gliooblastoma General Exam Limitations: no limitations General appearance: alert, in no apparent distress Eye exam: Present: normal appearance Neck exam: Present: normal inspection Respiratory exam: Present: normal lung sounds bilaterally Cardiovascular Exam: Present: regular rate, normal rhythm GI/Abdominal exam: Present: soft Extremities exam: Present: other (Full passive range of motion of the right shoulder. Strength and sensation of bilateral upper extremities intact. Hips are stable upon rocking. No obvious shortening or rotation. Strength and sensation of bilateral lower extremities equal and intact. DP/PT pulses intact.) Neurological exam: Present: alert, oriented X3 Skin exam: Present: warm, dry Course Vital Signs 11/07/23 16:39 Temperature 97.8 F Pulse Rate 78 Respiratory 20 Rate Blood Pressure 165/62 O2 Sat by Pulse 99 Oximetry Medical Decision Making - Medical Decision Making Was pt. sent in by a medical professional or institution (THERESA Morgan, GLOBAL COMPENSATION DIRECTOR, urgent care, hospital, or [place] health care facility...) When possible be specific @ -No Did you speak to anyone other than the patient for history (EMS, parent, family, police, friend...)? What history was obtained from this source @ -No Did you review nursing and triage notes (agree or disagree)? Why? @ -I reviewed and agree with nursing and triage notes Were old charts reviewed (outside hosp., previous admission, EMS record, old EKG, old radiological studies, urgent care reports/EKG's, [place] health care facility records)? Report findings @ -No old charts were reviewed Differential Diagnosis (chest pain, altered mental status, abdominal pain women, abdominal pain men, vaginal bleeding, weakness, fever, dyspnea, syncope, headache, dizziness, GI bleed, back pain, seizure, CVA, palpatations, mental health, musculoskeletal)? @ -Differential Musculoskeletal Muscular strain, contusion, ligament sprain, fracture, arthritis, septic arthritis, bursitis, cellulitis, muscle spasm, nerve compression, DVT, arterial occlusion, herpes zoster, electrolyte abnormality, tumor.... This is not meant to be in all inclusive list EKG interpreted by me (3pts min.). @ -As above X-rays interpreted by me (1pt min.). @ -X-ray of the right shoulder, pelvis, left femur interpreted by me showing no evidence of acute finding. CT interpreted by me (1pt min.). @ -CT brain C-spine interpreted me showing no evidence of bleed, fracture, or other acute finding. U/S interpreted by me (1pt. min.). @ -None done What testing was considered but not performed or refused? (CT, X-rays, U/S, labs)? Why? @ -None What meds were considered but not given or refused? Why? @ -None Did you discuss the management of the patient with other professionals (professionals i.e. , PA, GLOBAL COMPENSATION DIRECTOR, lab, RT, psych nurse, social problems specialist, manager animal, te acher, evp chief exploration officer, case finishing machine adjuster)? Give summary @ -No Was smoking cessation discussed for >3mins.? @ -No Was critical care preformed (if so, how long)? @ -No Were there social determinants of health that impacted care today? How? (Homelessness, low income, unemployed, alcoholism, drug addiction, transportation, low edu. Level, literacy, decrease access to med. care, snf, rehab)? @ -No Was there de-escalation of care discussed even if they declined (Discuss DNR or withdrawal of care, Hospice)? DNR status @ -No What co-morbidities impacted this encounter? (DM, HTN, Smoking, COPD, CAD, C ancer, CVA, ARF, Chemo, Hep., AIDS, mental health diagnosis, sleep apnea, morbid obesity)? @ -None Was patient admitted / discharged? Hospital course, mention meds given and route, prescriptions, significant lab abnormalities, going to OR and other pertinent info. @ -Discharge 83-year-old female presenting status post mechanical fall from standing onto tile landing onto her left side. No noted pain of the left hip, right shoulder, and headache. Imaging studies at this time are unremarkable and pain is well- controlled. Initially did not want any analgesia at initial evaluation however later requested it. After providing IV Tylenol significant improvement of pain. Discharged home in stable condition with family. Discussed return precautions with patient and family who verbalized agreement. Undiagnosed new problem with uncertain prognosis? @ -No Drug Therapy requiring intensive monitoring for toxicity (Heparin, Nitro, Insulin, Cardizem)? @ -No Were any procedures done? @ -No Diagnosis/symptom? @ -Status post mechanical fall Acute, or Chronic, or Acute on Chronic? @ -Acute Uncomplicated (without systemic symptoms) or Complicated (systemic symptoms)? @ -Uncomplicated Side effects of treatment? @ -No Exacerbation, Progression, or Severe Exacerbation? @ -No Poses a threat to life or bodily function? How? (Chest pain, [place], [place], pneumonia, PE, COPD, DKA, ARF, appy, cholecystitis, CVA, Diverticulitis, Homicidal, Suicidal, threat to staff... and all critical care pts) @ -No Disposition Clinical Impression: Fall Disposition: HOME SELF-CARE Condition: Good Instructions (If sedation given, give patient instructions): Fall Prevention for Older Adults (ED) Additional Instructions: Please return to the Emergency Department if symptoms worsen or any other concerns. Please follow-up with your primary care provider. Is patient prescribed a controlled substance at d/c from ED?: No Referrals: None,Stated [Primary Care Provider] - 1-2 days Time of Disposition: 19:38
--- NOTE | 2023-11-07 18:57 | CT ---
EXAMINATION TYPE: CT brain cspine wo con CT DLP: 1151.8 mGycm, Automated exposure control for dose reduction was used. DATE OF EXAM: 11/07/2023 6:00 PM COMPARISON: None. CLINICAL INDICATION:Female, 83 years old with history of r/o bleed/fx; fall. r/o bleed/fx TECHNIQUE: Brain: Multiple axial CT images of the brain were obtained without IV contrast. Cspine: Axial CT images from the skull base to the inferior aspect of T2 we obtained without intraven ous contrast. Coronal and sagittal reformatted images were also reviewed. FINDINGS: Brain: Extra-axial spaces: No abnormal extra-axial fluid collections. Ventricular system: Dilatation in proportion to cerebral atrophy. Cerebral parenchyma: Cerebral atrophy. No acute intraparenchymal hemorrhage or mass effect. The snell -white junction is well differentiated. Scattered hypoattenuating areas are seen within the white mat ter. Cerebellum: Unremarkable. Mass effect: No evidence of midline shift. Intracranial vasculature: Atherosclerotic calcifications of the intracranial vessels. Soft tissues: Normal. Calvarium/osseous structures: No depressed skull fracture. Paranasal sinuses and mastoid air cells: The right mastoid air cells are nearly completely opacified. There is suspected right middle ear effusion also present. Visualized orbits: Orbital contents are intact. Cervical spine: Fracture: None. Osseous structures: Multilevel degenerative disc disease changes with endplate spurring and disc oste ophyte complex's. Vertebral alignment: Within normal limits. Spinal canal/Neural Foramina: No evidence of significant spinal canal narrowing. No evidence for sign ificant neural foraminal stenosis. Neck soft tissues: Prevertebral soft tissues are within normal limits. Atherosclerosis of the arteria l vasculature including the carotid bifurcations. Other: The airway is patent. The lung apices are clear. IMPRESSION: 1. No acute intracranial process. 2. Nonspecific white matter changes, likely secondary to chronic small vessel ischemic disease. 3. No evidence of cervical spine fracture. 4. Mild multilevel degenerative disc disease. 5. Right mastoid air cell and middle ear effusion correlate for otomastoiditis.
--- NOTE | 2023-11-07 18:58 | XR ---
EXAMINATION TYPE: XR shoulder complete RT DATE OF EXAM: 11/07/2023 6:19 PM CLINICAL INDICATION:Female, 83 years old with history of r/o fx; [facility] COMPARISON: None TECHNIQUE: XR shoulder complete RT; examined in AP, internally rotated and scapular Y projections. FINDINGS: No evidence of acute osseous pathology, joint dislocation, or soft tissue swelling. The remaining po rtions of the visualized chest are unremarkable. Mild degeneration changes of the left acromion and distal clavicle. IMPRESSION: 1. No acute osseous pathology. 2. Mild shoulder osteoarthrosis.
--- NOTE | 2023-11-07 19:02 | XR ---
EXAMINATION TYPE: XR pelvis AP view, XR femur LT DATE OF EXAM: 11/07/2023 6:19 PM CLINICAL INDICATION:Female, 83 years old with history of r/o fx; [facility] COMPARISON: None TECHNIQUE: The pelvis was examined in a single projection additional frontal and lateral views of the left femur.. FINDINGS: There is no evidence of fracture or dislocation. There is no soft tissue abnormality. No a bnormal calcifications are present. The spine appears intact. The hips appear intact. No significant degeneration. Mild degeneration changes of the hips bilaterally. The left femur is intact without danae dence of fracture. Mild degeneration changes of the left knee with osteophyte formation of the tibial plateau and patella. Atherosclerosis of the arterial vasculature. IMPRESSION: 1. No acute osseous pathology. 2. Mild bilateral hip and left knee osteoarthrosis.
[2023-11-07] MEDS: ACETAMINOPHEN IV (For NPO) 1,000 MG in EMPTY BAG 1 BAG IVPB STA (19:30)
[2023-11-07 21:57] VITALS: BP 151/65; PULSE 72; RESP 18
== END 2023-11-07 22:05 | disposition home or self-care (01) ==
LOC: EC 16:30
DX: M25.511 Pain in right shoulder (principal); I25.10 Atherosclerotic heart disease of native coronary artery without angina pectoris; I10 Essential (primary) hypertension; I25.2 Old myocardial infarction; M19.90 Unspecified osteoarthritis, unspecified site; Z79.82 Long term (current) use of aspirin; Z79.899 Other long term (current) drug therapy; Z91.040 Latex allergy status; Z91.018 Allergy to other foods; Z91.048 Other nonmedicinal substance allergy status; Z88.5 Allergy status to narcotic agent; Z88.8 Allergy status to other drugs, medicaments and biological substances; W18.30XA Fall on same level, unspecified, initial encounter
CPT/HCPCS: 72170; 73552; 73030; 72125; 70450; 99285; 96365; J0131

== ENCOUNTER 2024-08-02 11:59 | Emergency (ER) | payer MEDICARE ==
[2024-08-02 12:27] LABS: Basophils % (A) 0 %; Eosinophils # (A) 0.1 k/uL (0-0.7); Eosinophils % (A) 1 %; HCT 39.3 % (34.0-46.0); HGB 12.6 gm/dL (11.4-16.0); Lymphocytes # (A) 1.9 k/uL (1.0-4.8); Lymphocytes % (A) 21 %; MCV 87.4 fL (80.0-100.0); Monocytes # (A) 0.4 k/uL (0-1.0); Monocytes % (A) 5 %; Neutrophils # (A) 6.2 k/uL (1.3-7.7); Neutrophils % (A) 71 %; Platelet Count 218 k/uL (150-450); RBC 4.49 m/uL (3.80-5.40); RDW 14.4 % (11.5-15.5); WBC 8.7 k/uL (3.8-10.6)
--- NOTE | 2024-08-02 12:34 | XR ---
EXAMINATION TYPE: XR KUB DATE OF EXAM: 08/02/2024 12:29 PM COMPARISON: 03/19/2019 CLINICAL INDICATION: Female, 84 years old with history of abdominal pain, TECHNIQUE: XR KUB view(s) obtained. FINDINGS: Nonspecific bowel gas is present. Psoas margins are normal. No organomegaly is present. IMPRESSION: 1. Nonspecific abdomen [facility] Janis Gonzalez, , 08/02/2024 12:32 PM
--- NOTE | 2024-08-02 12:39 | ED ---
Abdominal Pain HPI - General Chief Complaint: Abdominal Pain Stated Complaint: Abd Pain Time Seen by Provider: 08/02/24 12:05 Source: patient, EMS Mode of arrival: EMS Limitations: no limitations - History of Present Illness Initial Comments: 84-year-old female past medical history of Parkinson's disease who presents emergency department with left lower quadrant abdominal pain reports that her pain started at 3 AM in the morning and has persisted. She describes it as a cramping sensation. Currently 3 out of 10. She does admit to chronic constipation. Takes Senokot, mag citrate daily. Admits that she had a bowel movement yesterday typically goes 3 times per week. Denies any black or bloody stools. No changes in her urination. No nausea or vomiting. No history of bowel obstruction. Patient status post cholecystectomy, hysterectomy appendectomy. No nausea or vomiting. Continues to pass gas. Denies any chest pain or difficulty breathing. No numbness, tingling or weakness in her extremities. No other alleviating, precipitating modifying factors - Related Data Home Medications Medication Instructions Recorded Confirmed clonazePAM [KlonoPIN] 0.5 mg PO HS PRN 06/27/17 08/02/24 Carbidopa-Levodopa 25-100 mg 1 tab PO QID@08,12,16,20 08/02/24 08/02/24 [Sinemet 25-100] Metoprolol Tartrate [Lopressor] 12.5 mg PO DAILY 08/02/24 08/02/24 Simvastatin [Zocor] 20 mg PO HS 08/02/24 08/02/24 amLODIPine [Norvasc] 10 mg PO HS 08/02/24 08/02/24 Allergies Allergy/AdvReac Type Severity Reaction Status Date / Time codeine Allergy Severe RASH/VIRA Verified 08/02/24 15:25 Iodinated Contrast Media Allergy Severe Anaphylaxis Verified 08/02/24 15:25 [Iodinated Contrast- Oral and IV Dye] latex Allergy Severe Anaphylaxis Verified 08/02/24 15:25 adhesive Allergy Rash/Hives Verified 08/02/24 15:25 clarithromycin [From Biaxin] Allergy Rash/Hives Verified 08/02/24 15:25 kiwi Allergy Anaphylaxis Verified 08/02/24 15:25 levofloxacin [From Levaquin] Allergy Rash/Hives Verified 08/02/24 15:25 morphine Allergy Nausea & Verified 08/02/24 15:25 Vomiting nifedipine [From Procardia] Allergy Rash/Hives Verified 08/02/24 15:25 amantadine AdvReac SHAKINESS Verified 08/02/24 15:25 banana AdvReac Nausea & Verified 08/02/24 15:25 Vomiting methylcellulose Allergy Dyspnea Uncoded 08/02/24 15:25 Review of Systems ROS Statement: Those systems with pertinent positive or pertinent negative responses have been documented in the HPI. ROS Other: All systems not noted in ROS Statement are negative. Past Medical History Past Medical History: Coronary Artery Disease (CAD), Cancer, Chest Pain / Angina, CVA/TIA, Hypertension, Myocardial Infarction (IL), Musculoskeletal Disorder, Neurologic Disorder, Osteoarthritis (OA) Additional Past Medical History / Comment(s): Parkinson's disease with bilateral feet neuropathy, CVA with slight L sided weakness, cardiac murmur, "leaky heart valves", herniated cervical disc with cervical pain, back pain with bilateral sciatica, L shoulder cuff tear and joint is frozen, hx L breast cancer, R and L nares skin cancer , UTIs, vitamin B12 and D deficiency, hx anemia, varicose veins, migraines many years ago, , "Rt carotid plugged" , frequent nausea, constipation, hx pancreatitis, Last Myocardial Infarction Date:: 2016 History of Any Multi-Drug Resistant Organisms: None Reported Past Surgical History: Adenoidectomy, Appendectomy, Bladder Surgery, Breast Surgery, Section, Cholecystectomy, Heart Catheterization, Heart Catheterization With Stent, Hysterectomy, Orthopedic Surgery, Tonsillectomy Additional Past Surgical History / Comment(s): 2 cardiac stents,, L breast lumpectomy x 2, bilateral cataract removals with lens implants, L knee arthroscopy, L foot neuroma removed, R nares skin cancer removal, bladder suspension, sinus surgery, colonoscopy, angiogram. Past Anesthesia/Blood Transfusion Reactions: Motion Sickness Date of Last Stent Placement:: 2016 Past Psychological History: No Psychological Hx Reported Smoking Status: Never smoker Past Alcohol Use History: None Reported Past Drug Use History: None Reported - Past Family History Brother(s) Family Medical History: Cancer, Deep Vein Thrombosis (DVT) Sister(s) Family Medical History: Cancer Son(s) Family Medical History: Cancer Additional Family Medical History / Comment(s): gliooblastoma General Exam Limitations: no limitations General appearance: alert, in no apparent distress Head exam: Present: atraumatic, normocephalic, normal inspection Eye exam: Present: normal appearance, PERRL, EOMI. Absent: scleral icterus, conjunctival injection, periorbital swelling ENT exam: Present: normal exam, mucous membranes moist Neck exam: Present: normal inspection. Absent: tenderness, meningismus, lymphadenopathy Respiratory exam: Present: normal lung sounds bilaterally. Absent: respiratory distress, wheezes, rales, rhonchi, stridor Cardiovascular Exam: Present: regular rate, normal rhythm, normal heart sounds. Absent: systolic murmur, diastolic murmur, rubs, gallop, clicks GI/Abdominal exam: Present: soft, tenderness (Left lower quadrant), normal bowel sounds. Absent: distended, guarding, rebound, rigid Rectal exam: Present: fecal impaction Extremities exam: Present: normal inspection, full ROM, normal capillary refill. Absent: tenderness, pedal edema, joint swelling, calf tenderness Back exam: Present: normal inspection Neurological exam: Present: alert, oriented X3, CN II-XII intact Psychiatric exam: Present: normal affect, normal mood Skin exam: Present: warm, dry, intact, normal color. Absent: rash Course Vital Signs 08/02/24 08/02/24 08/02/24 12:01 13:27 16:48 Temperature 98.7 F 97.8 F Pulse Rate 63 64 58 L Respiratory 16 15 16 Rate Blood Pressure 146/63 146/63 171/71 O2 Sat by Pulse 99 98 96 Oximetry Procedures - Rectal Disimpaction Consent Obtained: verbal consent Indication: fecal impaction Procedural Sedation: No Sedation/Analgesia: none Technique: manual disimpaction with gloved finger Result: significant stool output Complications: none Patient Tolerated Procedure: well, no complications Medical Decision Making - Medical Decision Making Was pt. sent in by a medical professional or institution (, PA, SAILING OFFICER, urgent care, hospital, or fci...) When possible be specific @ -No Did you speak to anyone other than the patient for history (EMS, parent, family, police, friend...)? What history was obtained from this source @ -Spoke with EMS for history Did you review nursing and triage notes (agree or disagree)? Why? @ -I reviewed and agree with nursing and triage notes Were old charts reviewed (outside hosp., previous admission, EMS record, old EKG, old radiological studies, urgent care reports/EKG's, fci records)? Report findings @ -No old charts were reviewed Differential Diagnosis (chest pain, altered mental status, abdominal pain women, abdominal pain men, vaginal bleeding, weakness, fever, dyspnea, syncope, headach e, dizziness, GI bleed, back pain, seizure, CVA, palpatations, mental health, musculoskeletal)? @ -Differential Abdominal Pain Women: Appendicitis, Cholecystitis, diverticulosis, ischemic bowel, pancreatitis, hepatitis, UTI, gastroenteritis, AAA, incarcerated hernia, bowel obstruction, constipation, inflammatory bowel, hepatitis, peptic ulcer disease, splenic infarction, perforated viscus, vulvitis, ovarian torsion, PID, kidney stone, placenta abruption, this is not meant to be an all-inclusive list EKG interpreted by me (3pts min.). @ -Not done X-rays interpreted by me (1pt min.). @ -Yes and demonstrates moderate stool burden CT interpreted by me (1pt min.). @ -None done U/S interpreted by me (1pt. min.). @ -None done What testing was considered but not performed or refused? (CT, X-rays, U/S, labs)? Why? @ -None What meds were considered but not given or refused? Why? @ -None Did you discuss the management of the patient with other professionals (professionals i.e. , PA, SAILING OFFICER, lab, RT, psych nurse, social insurance analyst, contact and service clerks supervisor, teacher, ground intelligence officer, manager case management)? Give summary @ -No Was smoking cessation discussed for >3mins.? @ -No Was critical care preformed (if so, how long)? @ -No Were there social determinants of health that impacted care today? How? (Homelessness, low income, unemployed, alcoholism, drug addiction, transportation, low edu. Level, literacy, decrease access to med. care, fpc, rehab)? @ -No Was there de-escalation of care discussed even if they declined (Discuss DNR or withdrawal of care, Hospice)? DNR status @ -No What co-morbidities impacted this encounter? (DM, HTN, Smoking, COPD, CAD, Cancer, CVA, ARF, Chemo, Hep., AIDS, mental health diagnosis, sleep apnea, morbid obesity)? @ -Parkinson's Was patient admitted / discharged? Hospital course, mention meds given and route, prescriptions, significant lab abnormalities, going to OR and other pertinent info. @ -Upon arrival patient seen and evaluated in bed 5. Thorough history and p hysical exam was performed. Laboratory studies were conducted. X-ray was performed. Patient requesting rectal disimpaction as she states this is typically what has to happen when she gets impacted. Rectal disimpaction performed with a significant stool output. Patient feels much improved. She is able to be discharged home at this time. Instructed to follow-up with her primary care doctor in 2 to 4 days and return for any new or worsening symptoms. Patient discharged home in stable condition Undiagnosed new problem with uncertain prognosis? @ -No Drug Therapy requiring intensive monitoring for toxicity (Heparin, Nitro, Insulin, Cardizem)? @ -No Were any procedures done? @ -No Diagnosis/symptom? @ -Acute left lower quadrant abdominal pain, acute constipation Acute, or Chronic, or Acute on Chronic? @ -Acute Uncomplicated (without systemic symptoms) or Complicated (systemic symptoms)? @ -Complicated Side effects of treatment? @ -No Exacerbation, Progression, or Severe Exacerbation? @ -No Poses a threat to life or bodily function? How? (Chest pain, USA, IL, pneumonia, PE, COPD, DKA, ARF, appy, cholecystitis, CVA, Diverticulitis, Homicidal, Suicidal, threat to staff... and all critical care pts) @ -No - Lab Data Result diagrams: 08/02/24 12:19 08/02/24 12:19 Lab Results 08/02/24 08/02/24 08/02/24 Range/Units 12:19 12:19 12:19 WBC 8.7 (3.8-10.6) k/uL RBC 4.49 (3.80-5.40) m/uL Hgb 12.6 (11.4-16.0) gm/dL Hct 39.3 (34.0-46.0) % MCV 87.4 (80.0-100.0) fL MCH 28.0 (25.0-35.0) pg MCHC 32.0 (31.0-37.0) g/dL RDW 14.4 (11.5-15.5) % Plt Count 218 (150-450) k/uL MPV 7.0 Neutrophils % 71 % Lymphocytes % 21 % Monocytes % 5 % Eosinophils % 1 % Basophils % 0 % Neutrophils # 6.2 (1.3-7.7) k/uL Lymphocytes # 1.9 (1.0-4.8) k/uL Monocytes # 0.4 (0-1.0) k/uL Eosinophils # 0.1 (0-0.7) k/uL Basophils # 0.0 (0-0.2) k/uL Sodium 140 (137-145) mmol/L Potassium 3.8 (3.5-5.1) mmol/L Chloride 105 (98-107) mmol/L Carbon Dioxide 29 (22-30) mmol/L Anion Gap 6 mmol/L BUN 24 H (7-17) mg/dL Creatinine 0.65 (0.52-1.04) mg/dL Est GFR (CKD-EPI)AfAm >90 (>60 ml/min/1.73 sqM) Est GFR (CKD-EPI)NonAf 83 (>60 ml/min/1.73 sqM) Glucose 145 H (74-99) mg/dL Lactic Ac Sepsis Rflx Plasma Lactic Acid Rudy 2.3 H* (0.7-2.0) mmol/L Calcium 9.2 (8.4-10.2) mg/dL Total Bilirubin 0.9 (0.2-1.3) mg/dL AST 23 (14-36) U/L ALT 8 (4-34) U/L Alkaline Phosphatase 56 (38-126) U/L Total Protein 7.3 (6.3-8.2) g/dL Albumin 4.0 (3.5-5.0) g/dL Lipase 54 (23-300) U/L Urine Color Urine Appearance (Clear) Urine pH (5.0-8.0) Ur Specific Black (1.001-1.035) Urine Protein (Negative) Urine Glucose (UA) (Negative) Urine Ketones (Negative) Urine Blood (Negative) Urine Nitrite (Negative) Urine Bilirubin (Negative) Urine Urobilinogen (<2.0) mg/dL Ur Leukocyte Esterase (Negative) 08/02/24 08/02/24 08/02/24 Range/Units 13:12 13:44 15:45 WBC (3.8-10.6) k/uL RBC (3.80-5.40) m/uL Hgb (11.4-16.0) gm/dL Hct (34.0-46.0) % MCV (80.0-100.0) fL MCH (25.0-35.0) pg MCHC (31.0-37.0) g/dL RDW (11.5-15.5) % Plt Count (150-450) k/uL MPV Neutrophils % % Lymphocytes % % Monocytes % % Eosinophils % % Basophils % % Neutrophils # (1.3-7.7) k/uL Lymphocytes # (1.0-4.8) k/uL Monocytes # (0-1.0) k/uL Eosinophils # (0-0.7) k/uL Basophils # (0-0.2) k/uL Sodium (137-145) mmol/L Potassium (3.5-5.1) mmol/L Chloride (98-107) mmol/L Carbon Dioxide (22-30) mmol/L Anion Gap mmol/L BUN (7-17) mg/dL Creatinine (0.52-1.04) mg/dL Est GFR (CKD-EPI)AfAm (>60 ml/min/1.73 sqM) Est GFR (CKD-EPI)NonAf (>60 ml/min/1.73 sqM) Glucose (74-99) mg/dL Lactic Ac Sepsis Rflx Y Plasma Lactic Acid Rudy 0.6 L (0.7-2.0) mmol/L Calcium (8.4-10.2) mg/dL Total Bilirubin (0.2-1.3) mg/dL AST (14-36) U/L ALT (4-34) U/L Alkaline Phosphatase (38-126) U/L Total Protein (6.3-8.2) g/dL Albumin (3.5-5.0) g/dL Lipase (23-300) U/L Urine Color Yellow Urine Appearance Clear (Clear) Urine pH 6.0 (5.0-8.0) Ur Specific Black 1.015 (1.001-1.035) Urine Protein Trace H (Negative) Urine Glucose (UA) Negative (Negative) Urine Ketones Negative (Negative) Urine Blood Negative (Negative) Urine Nitrite Negative (Negative) Urine Bilirubin Negative (Negative) Urine Urobilinogen <2.0 (<2.0) mg/dL Ur Leukocyte Esterase Negative (Negative) Disposition Clinical Impression: Constipation, Abdominal pain, Sacral wound Disposition: HOME SELF-CARE Condition: Stable Instructions (If sedation given, give patient instructions): Constipation (ED) Additional Instructions: Please continue taking your medications as directed to improve your bowel movements. Return for any new or worsening symptoms. We are getting in contact with your primary care doctor to order some wound dressings for you Is patient prescribed a controlled substance at d/c from ED?: No Referrals: Chery Pryor [Primary Care Provider] - 1-2 days Time of Disposition: 16:16
[2024-08-02 12:42] LABS: ALT 8 U/L (4-34); AST 23 U/L (14-36); African American GFR (CKD) >90 (>60 ml/min/1.73 sqM); Alkaline Phosphatase 56 U/L (38-126); Anion Gap 6 mmol/L; Blood Urea Nitrogen 24 mg/dL (7-17); Calcium 9.2 mg/dL (8.4-10.2); Carbon Dioxide 29 mmol/L (22-30); Chloride 105 mmol/L (98-107); Glucose 145 mg/dL (74-99); Lipase 54 U/L (23-300); Non-African American GFR(CKD) 83 (>60 ml/min/1.73 sqM); Potassium 3.8 mmol/L (3.5-5.1); Sodium 140 mmol/L (137-145); Total Bilirubin 0.9 mg/dL (0.2-1.3); Total Protein 7.3 g/dL (6.3-8.2)
[2024-08-02 13:49] LABS: Appearance,Urine Clear (Clear); Bilirubin,Urine Negative (Negative); Blood,Urine Negative (Negative); Color,Urine Yellow; Glucose,Urine (UA) Negative (Negative); Ketones,Urine Negative (Negative); Leukocyte Esterase,Urine Negative (Negative); Nitrite,Urine Negative (Negative); Protein,Urine Trace (Negative); Specific Gravity,Urine 1.015 (1.001-1.035); Urobilinogen,Urine <2.0 mg/dL (<2.0)
[2024-08-02 16:51] VITALS: BP 171/71; PULSE 58; RESP 16; TEMP 97.8
== END 2024-08-02 16:58 | disposition home or self-care (01) ==
LOC: SUPCPDRO 11:59 → EC 11:59
DX: K59.00 Constipation, unspecified (principal); L89.159 Pressure ulcer of sacral region, unspecified stage; G20.A1 Parkinson's disease without dyskinesia, without mention of fluctuations; Z88.1 Allergy status to other antibiotic agents; Z91.040 Latex allergy status; Z91.041 Radiographic dye allergy status; Z86.73 Personal history of transient ischemic attack (TIA), and cerebral infarction without residual deficits; Z90.49 Acquired absence of other specified parts of digestive tract; Z95.5 Presence of coronary angioplasty implant and graft
CPT/HCPCS: 36415; 74018; 80053; 81003; 83605; 83690; 85025; 99284